=== PATIENT | female | born 1945 | race Caucasian/White ===

== ENCOUNTER → 2018-08-08 | Outpatient (CLI) | END | disposition home or self-care (01) ==

== ENCOUNTER → 2018-12-08 | Outpatient (CLI) | payer MEDICARE, BC ==
--- NOTE | 2018-12-08 18:31 | CONS ---
Consult Date/Type/Reason Admit Date/Time Initial Consult Date Date/Time of Note DATE: 12/08/18 TIME: 18:27 Subjective Fanny House here today with osteoarthritis of the left hip. The patient has been having problems for the last several years. She has failed conservative management. The patient's pain is an 8/10. The patient is here for preoperative visit. She has stopped smoking completely a few months ago. Objective Vitals Weight: 138 pounds Height: 5 foot 2 inches Temperature: 98.6 Heart Rate: 67 Blood Pressure: 152/70 Respiratory Rate: 12 Exam General: Awake, alert, in no acute distress, pleasant and cooperative Heart: regular rhythm Lungs: breathing comfortably, no tachypnea or dyspnea Musculoskeletal: Well developed thin female in no apparent distress. Gait demonstrates a mild Trendelenburg with antalgic components and a short leg component. Standing, the pelvis is oblique and supine there is a true leg length discrepancy, with the left leg 1 cm short. No tenderness over trochanteric bursa or IT band. No tenderness to palpation over the lower back. ----- Range of motion: Flexion: 90 Extension: 0 Internal rotation: 20 External rotation: 15 Abduction: 30 Adduction: Midline ----- Sitting there is no pelvic obliquity. Pain at the extremes of motion of the affected hip. Skin was intact throughout both lower extremities. Sensation intact to light touch in a sural, saphenous, deep peroneal, superficial peroneal, medial and lateral plantar nerve distribution. Neurovascular exam showed 5/5 strength in the abductors, quads, EHL/tibialis anterior/gastroc. 2-3 beats of clonus in bilateral feet. Deep tendon reflexes intact and symmetric. Normal and symmetrical pulses were palpated in both the dorsalis pedis and posterior tibial arteries. There is no sign of venous stasis. Results/Medications Imaging The patient received a full set of films and personally reviewed by myself today in clinic including an AP pelvis and an AP and lateral of the affected hip. The hip is reduced. There is complete loss of joint space. There is osteophyte formation. There is subchondral sclerosis. There are subchondral cysts. There is no significant deformity of the the proximal femur, femoral neck, or acetabulum. The pelvis is in continuity. Bone quality radiographically: Fair Assessment/Plan Hospital Course (Demo Recall) The patient has osteoarthritis of the left hip. Medical Clearance: yes. ----- A lengthy discussion was held, where the patient was told that if and when the symptoms are intolerable, elective total hip replacement should be considered. The operative procedure was explained using diagrams and/or three-dimensional models. The rehabilitation, the potential risks, benefits and alternatives were discussed at length. Specific risks discussed included but were not limited to excessive blood loss a nd the need for transfusion and therefore the risk of transmissible disease or transfusion reaction, deep infection and the potential need for repetitive debridements, implant removal, long-term antibiotic therapy, possibly requiring deep venous access, le g-length discrepancy, dislocation, possibly recurrent, with the need for closed versus open reduction, bracing, femoral or acetabular fracture and the need for further surgery for fixation, neurovascular injury with temporary or permanent numbness, tingling, weakness or paralysis, deep venous thrombosis, pulmonary embolism and , persistent pain, weakness, or limp, late aseptic loosening and the need for revision, polyethylene wear-induced osteolysis and related problems, and finally, a wide variety of unanticipated medical problems. The opportunity to ask questions and address any concerns was provided. The patient would like to proceed with scheduling. Face to Face Evaluation For Home Health Care: This is to certify that after date of planned surgery patient will be in need of intermittent care home care, physical therapy and/or occupational therapy as patient will be home bound. This patient is under my care and I have authorized the services on this plan of care and will periodically review the plan. Plan: Left KULDEEP VTE risk stratification: Average VTE prophylaxis: ASA 81 mg BID Pain control: Standard Telemetry: Not indicated at this time MRSA: Pending UNIQUE LUIS MD Dec 08, 2018 18:31
--- NOTE | 2018-12-09 10:20 | RADRPT ---
PROCEDURE: XR Left Hip and pelvis. CLINICAL INDICATION: Left hip pain. Pelvic pain. TECHNIQUE: Two views. Frontal pelvis and frontal left hip. COMPARISON: 08/08/2018. FINDINGS: There is no fracture or dislocation. The soft tissues are normal. There are severe degenerative changes of the left hip with joint space narrowing, osteophytes, subcho ndral sclerosis, and mild deformity. The right hip is grossly normal. There is no lytic or blastic lesion. There is no radiopaque foreign body. IMPRESSION: 1. Severe degenerative changes of the left hip. 2. Otherwise unremarkable study. RPTAT: QQ .Jd Atkinson MD, MD Date Time Electronically viewed and signed by .Jd Atkinson MD, MD on 12/09/2018 10:19 .R/
== END | disposition home or self-care (01) ==
LOC: HKI 12:51
PROVIDERS: ATTEND Orthopaedic Surgery Adult Reconstructive Orthopaedic Surgery
DX: Z01.818 Encounter for other preprocedural examination (principal); M16.12 Unilateral primary osteoarthritis, left hip
CPT/HCPCS: 73502; G0463

== ENCOUNTER 2018-12-16 07:49 | Inpatient (IN) | payer MEDICARE, BC ==
[2018-12-10 13:51] VITALS: Ht 157.5 cm; Wt 62.7 kg
[2018-12-16] VITALS (20 sets, daily range): BP systolic 97–154; BP diastolic 54–87; PULSE 59–92; RESP 12–19
[~2018-12-16] VITALS: Ht 157.5 cm; Wt 62.7 kg
[~2018-12-16 07:49] MED LIST: ACETAMINOPHEN 500 MG TAB PO ONE; CEFAZOLIN 2 GM/50 ML (PMX) 50 ML IVPB ONE; CELECOXIB 200 MG CAP PO ONE; DEXAMETHASONE 4 MG/ML 1 ML INJ IV ONE; LACTATED RINGER'S 1,000 ML IV* SCH; LANSOPRAZOLE 30 MG CAP PO ONE; ONDANSETRON 4 MG INJ IV ONE; TRANEXAMIC ACID 1GM/100ML(PMX) 100 ML AT CLOSING IVPB ONE; TRANEXAMIC ACID 1GM/100ML(PMX) 100 ML PRE-OP IVPB ONE
[2018-12-16] MEDS ORDERED: SIMV10TA PO (10:02)
[2018-12-16] MEDS ORDERED: ACETAMINOPHEN 1000MG/100ML IV 100 ML IVPB ONE (10:30)
--- NOTE | 2018-12-16 11:11 | PREAC ---
Date/Time of Note Date/Time of Note DATE: 12/16/18 TIME: 11:10 Anesthesia Eval and Record Evaluation Time Pre-Procedure Interview DATE: 12/16/18 TIME: 11:10 Age 73 Sex female NPO: 8 hrs Preoperative diagnosis left hip primary OA Planned procedure left total hip arthroplasty Past Medical History Past Medical History: Includes Cardio: Dyslipidemia Surgery & Anesthesia Issues No known issue Meds Anticoagulation: No Beta Fernanda within 24 hr: No Reason Beta Fernanda not given: Pt. not on B-Fernanda Reported Medications Simvastatin* (Zocor*) 10 Mg Tablet, 10 MG PO DAILY, #30 TAB 12/16/18 Current Medications Lactated Ringer's 1,000 ml @ 125 mls/hr Q8H IV* Last administered on 12/16/18at 10:14; Admin Dose 125 MLS/HR; Start 12/16/18 at 06:00; Stop 12/16/18 at 13:59 Ropivacaine/ Clonidine/ Epinephrine/ Ketorolac Tromethamine/ Sodium Chloride INTRA-OP INJ ; Start 12/16/18 at 14:00; Stop 12/16/18 at 23:00 Meds reviewed: Yes Allergies Coded Allergies: No Known Allergies (Verified Allergy, Unknown, 12/16/18) Allergies Reviewed: Yes Labs/Studies Labs Reviewed: Reviewed by anesthesiologist Blood Bank Test 12/16/18 10:16 Antibody Screen NEGATIVE Blood Type A POSITIVE test: N/A Studies: ECG (sr), CXR (nl) Pre-procedure Exam Last vitals Vital Signs Date Temp Pulse Resp B/P (MAP) Pulse Ox O2 O2 Flow FiO2 Time Delivery Rate 12/16/18 98.1 59 16 154/72 99 Room Air 10:32 (99) Airway: Adequate mouth opening Mallampati: Mallampati I Teeth: Normal Lung: Normal Heart: Normal ASA Physical Status ASA physical status: 2 Emergency: None Planned Anesthetic General/MAC: ETT Neuraxial: Spinal Planned Pain Management Sub-arachniod narcotics, Single shot nerve block Pre-operative Attestations Prior to commencing anesthesia and surgery, the patient was re-evaluated, there was verification of: *The patient's identity *The results of appropriate recent lab work and preoperative vital signs *The above evaluation not changing prior to induction *Anesthetic plan, risk benefits, alternative and complications discussed with patient/family; questions answered; patient/family understands, accepts and wishes to proceed. RACHANA PEPPER MD Dec 16, 2018 11:11
--- NOTE | 2018-12-16 11:38 | HPN ---
Date/Time of Note Date/Time of Note DATE: 12/16/18 TIME: 11:37 Interval H&P Admission Note Pt. seen H&P reviewed: No system changes Patient denies fever, chills, shortness of breath, chest pain, nausea/vomiting, constipation, diarrhea, numbness, and tingling. MUSCULOSKELETAL: Left extremity Skin intact Sensation intact to light touch in a sural, saphenous, deep peroneal, superficial peroneal, medial and lateral plantar nerve distribution. Motor is intact, patient able to dorsiflex and plantarflex ankle and extend and flex great toe. Dorsalis Pedis pulse +2, Brisk capillary refill. Compartments are soft. Calves non-tender to palpation bilaterally. UNIQUE LUIS MD Dec 16, 2018 11:38
[2018-12-16] MEDS ORDERED: ONDANSETRON 4 MG INJ ONE (12:23)
[2018-12-16] MEDS ORDERED: ROCURONIUM 50 MG INJ ONE (12:23)
[2018-12-16] MEDS ORDERED: METOCLOPRAMIDE 10 MG INJ ONE (12:23)
[2018-12-16] MEDS ORDERED: morphine SULFATE/PF (10 MG/10 ML) INJ ONE (12:23)
[2018-12-16] MEDS ORDERED: MIDAZOLAM 1 MG/ML 2 ML INJ ONE (12:23)
[2018-12-16] MEDS ORDERED: ROPIVACAINE 0.5 % 30 ML VIAL ONE (12:23)
[2018-12-16] MEDS ORDERED: PROPOFOL 20 ML ONE (12:23)
[2018-12-16] MEDS ORDERED: TRANEXAMIC ACID 1GM/100ML(PMX) 100 ML ONE ×2 (12:42→14:55)
[2018-12-16] MEDS ORDERED: CEFAZOLIN 1 GM INJ ONE (12:43)
[2018-12-16] MEDS ORDERED: HYDROmorphONE 1 MG/5 ML IV SYRINGE IV PRN ×3 (13:00)
[2018-12-16] MEDS ORDERED: FENTAnyl 50 MCG/ML VIAL IV PRN ×3 (13:00)
[2018-12-16] MEDS ORDERED: ONDANSETRON 4 MG INJ IV PRN (13:00)
[2018-12-16] MEDS ORDERED: MEPERIDINE 25 MG INJ IV PRN (13:00)
[2018-12-16] MEDS ORDERED: DIPHENHYDRAMINE 50 MG INJ IV PRN ×2 (13:00→17:00)
[2018-12-16] MEDS ORDERED: DEXAMETHASONE 4 MG/ML 5 ML INJ ONE (13:04)
[2018-12-16] MEDS ORDERED: EPHEDrine 50 MG INJ ONE ×2 (16:23)
[2018-12-16] MEDS ORDERED: SENNA/DOCUSATE NA (8.6MG/50MG) TAB PO PRN (17:00)
[2018-12-16] MEDS ORDERED: BETHANECHOL 25 MG TAB PO PRN (17:00)
[2018-12-16] MEDS ORDERED: BISACODYL 10 MG SUPP PR PRN (17:00)
[2018-12-16] MEDS ORDERED: DOCUSATE SODIUM 100 MG CAP PO ONE (17:00)
[2018-12-16] MEDS ORDERED: MAGNESIUM HYDROXIDE 30ML CUP PO PRN (17:00)
[2018-12-16] MEDS ORDERED: HYDROmorphONE 1 MG/ML SYG IV PRN (17:00)
[2018-12-16] MEDS ORDERED: NACL 0.9% 3 ML SYG IV SCH (17:00)
[2018-12-16] MEDS ORDERED: NA PHOSPHATE/BIPHOS 133 ML ENEMA PR PRN (17:00)
[2018-12-16] MEDS ORDERED: oxyCODONE 5 MG TAB PO PRN ×3 (17:00)
[2018-12-16] MEDS ORDERED: NALOXONE (0.4 MG/ML) INJ IV PRN (17:00)
[2018-12-16] MEDS ORDERED: CEFAZOLIN 1 GM/50 ML (PMX) 0 ML IVPB ONE (17:05)
--- NOTE | 2018-12-16 17:12 | OPR ---
Date/Time of Note Date/Time of Note DATE: 12/16/18 TIME: 17:02 Operative Report Procedure Date: Dec 16, 2018 Preoperative Diagnosis Left hip primary osteoarthritis Postoperative Diagnosis As above Operation/Procedure Performed Left total hip arthroplasty and open reduction internal fixation of periprosthetic fracture Use of intraoperative x-ray Surgeon see signature line Academic Affairs Director Trenton Culp Anesthesia Type: general, spinal Estimated Blood Loss: 250 - 300 ml's Transfusion none Specimen Femoral head Grafts/Implants Complications Iatrogenic calcar fracture Disposition: PACU Procedure Description PREOP DIAGNOSIS: Left hip osteoarthritis. POSTOP DIAGNOSIS: Same. SURGICAL PROCEDURE: Left total hip arthroplasty (CPT code 65420). Open reduction internal fixation of periprosthetic femur fracture INDICATIONS: The patient is a 73 year-old woman with an orthopaedic history significant for progressively worsening left hip pain. The patient failed conservative management and wished to pursue surgical options. On physical exam, they walk with a moderate antalgic gait. No previous open surgical scars. Guarded range of motion but no contractures. Neurovascularly intact. Radiographs reveal advanced osteoarthritis with DJD INFORMED CONSENT: The operative procedure was explained using diagrams and/or three-dimensional models. The rehabilitation, the potential risks, benefits and alternatives were discussed at length. Specific risks discussed included but were not limited to excessive blood loss and the need for transfusion and therefore the risk of transmissible disease or transfusion reaction, deep infection and the potential need for repetitive debridements, implant removal, long-term antibiotic therapy, possibly requiring deep venous access, leg-length discrepancy, dislocation, possibly recurrent, with the need for closed versus open reduction, bracing, femoral or acetabular fracture and the need for further surgery for fixation, neurovascular injury with temporary or permanent numbness, tingling, weakness or paralysis, deep venous thrombosis, pulmonary embolism and , persistent pain, weakness, or limp, late aseptic loosening and the need for revision, john yethylene wear-induced osteolysis and related problems, and finally, a wide variety of unanticipated medical problems. The opportunity to ask questions and address any concerns was provided. The patient wished to proceed. FINDINGS: Severely degenerative femoral head and acetabulum with full-thickness cartilage loss. Minimal synovitis. Good quality bone on the acetabular side. On implantation of the femoral component there was a calcar fracture. SURGERY IN DETAIL: The patient was taken into the Operating Room and placed supine on the operating table. Preoperatively, they were administered Ancef. They were administered general and spinal anesthesia by the Anesthesia Department. Dexamethasone 10mg IV was administered. The patient was placed on an [facility] Lateral Positioner in a right lateral decubitus position with the left hip superior. An axillary roll was placed, all pressure points were confirmed padded. The left hip region was prepped and draped in sterile fashion. A surgical pause was performed, correctly identifying the patient's name, the correct medical record number, the correct diagnosis, correct surgical procedure, and the correct extremity. 1g of tranexamic acid was dosed at the time of incision A posterolateral skin incision, approximately 15-20 cm in length was made, centered over the greater trochanter, skin and subcutaneous tissue sharply dissected. Deep fascial layer was identified and incised in line with the skin incision. Gluteus medius was retracted anteriorly. Piriformis tendon was identified, tagged with a stitch, and incised close to its insertion. The interval between the gluteus minimus and hip capsule was developed superiorly, and a superior retractor was placed. Short external rotators were subperiosteally incised from the posterior proximal femur to the level of the lesser trochanter and an inferior retractor was placed. A posterior capsulotomy was performed. Two tag stitches were placed in the capsule. The hip was dislocated. A femoral neck osteotomy was performed at the preoperatively templated level. A radial incision was made in the inferior capsule to the level of transverse acetabular ligament, which was identified, and an inferior retractor was placed inferior to the transverse acetabular ligament or inferior to the cotyloid notch. An anterior retractor was placed at the rim of the acetabulum. The acetabular labrum was then sharply excised. There was a large pulvinar in the base of the acetabulum, which was removed with electrocautery. The acetabulum was then sequentially reamed, beginning at 45 mm, up to a size 51 outer diameter reamer. A size 52 Gription-[place]rid cup was inserted. A single dome screw was placed with good purchase, and a neutral 36 mm polyethylene trial was inserted and attention was placed to preparing the femur. Soft tissues were removed from the junction of the greater trochanter and the femoral neck osteotomy. A box osteotome was used lateralize the starting point. A starting awl was utilized, followed by a lateralizing reamer, followed by axial reamers for the Blanca system up to a size 5. The femoral canal was then broached up to a size 5. A neutral femoral head was inserted and the hip was reduced. Range of motion and stability were quite good, including forward flexion to greater than 90 degrees, internal rotation greater than 80 degrees at 90 degrees flexion, internal rotation greater than 80 degrees with the hip adducted and at 45 degrees of flexion. External Rotation was also tested, and was stable with no impingement or instability at full extension and 30 degrees external rotation. Ranawat sign was 50 degrees. Intraoperative x-ray revealed the hip to have satisfactory position of all components. The hip was dislocated in controlled manner using a bone hook and the trial components removed. Local anesthetic was injected periarticular. A formal neutral 36 mm polyethylene was inserted into the cup, confirmed seated and locked. On the femoral side, a Blanca size 5 standard stem was inserted. Careful and controlled impaction of the femoral implant was done. Once the implant reached the line of the femoral neck resection it was noted the stem subsided a few millimeters. On careful inspection it was noted that there was a significant calcar fracture with distraction along the posterior aspect of the femur. This extended just distal level of the lesser trochanter. The femoral prosthesis was removed. At this time the calcar fracture was further evaluated. A cable passer was passed all around the calcar with care to not entrap the il iopsoas tendon and a [employer] cable was placed and tightened down. A second cable was placed distal to the lesser trochanter passing under the vastus lateralis to compress the distal extent of the calcar fracture. Of note the gluteus rene insertion on the femur had to be partially taken down for this. The cable was tensioned and tightened. At this time the femoral implant which was a Blanca size 5 standard offset was reimplanted with care. There was good fit at the level of the femoral neck resection. A 36 mm +1.5 mm head was inserted onto the taper. The hip was reduced. One final time range of motion, stability, and soft tissue tension were satisfactory. The wound was thoroughly irrigated. 1g of tranexamic acid was dosed. The previously tagged arthrotomy, as well as the piriformis tendon was reattached to the gluteus medius at the level the greater trochanter. The deep fascial layer was closed with 1 Vicryl in a [id number], interrupted fashion, deep subcutaneous tissues irrigated and closed with 0 Vicryl interrupted fashion, subcutaneous tissues irrigated, closed with 2-0 Vicryl in an inverted, interrupted fashion. The skin was closed with wesley. A sterile dressing was applied, abduction pillow was placed between the legs, and the patient was transferred to a supine position. Postoperative clinical leg lengths, rotation of limb were neutral and symmetric. All Counts were correct x2 DISPOSITION: Patient transferred to PACU in stable condition. The patient will be touchdown weightbearing on the operative extremity secondary to the extensive calcar fracture that required 2 cables for fixation. PT will begin POD#0 if available. Posterior hip precautions for 3 months with an abduction pillow. Postoperative AP pelvis will be ordered in PACU. Bilateral knee high SCDs will be worn while admitted. ASA 81mg BID will be given for DVT prophylaxis for 6 weeks. Pain will be controlled with medication. The patient will follow up in clinic in approximately 2 weeks. Implant: DePuy: Gription-pinnacle acetabulum size 52 mm Polyethylene Size 36 mm, neutral Femoral stem: Blanca press-fit size 5, stem offset Femoral head: 36 +1.5 mm ceramic. Werner [employer] Nephew: 2 cerclage cables UNIQUE LUIS MD Dec 16, 2018 17:12
[2018-12-16] MEDS: CEFAZOLIN 2 GM/50 ML (PMX) 50 ML IVPB SCH (17:27)
[2018-12-16] MEDS: LACTATED RINGER'S 1,000 ML IV SCH (17:27)
--- NOTE | 2018-12-16 18:06 | CONS ---
Assessment/Plan Assessment/Plan Problems: (1) Pure hypercholesterolemia Status: Chronic Comment: Reports muscle pain w/ statin. Reports although simvastatin is on her med rec, has been switched to zetia. Will cont. this daily. (2) Primary osteoarthritis of left hip Status: Resolved Comment: Per primary team. (3) Aftercare following left hip joint replacement surgery Status: Acute Comment: Pt. doing well POD#0. PT and pain control per primary team. Will monitor for any medical issues and manage should they arise. Will follow w/ you daily. Consultation Date/Type/Reason Admit Date/Time Dec 16, 2018 at 07:49 Date of Consultation: Dec 16, 2018 Type of Consult Medicine Reason for Consultation Medical Management Requesting Provider: UNIQUE LUIS MD Date/Time of Note DATE: 12/16/18 TIME: 17:59 Hx of Present Illness 73 y/o C F w/ h/o hyperlipidemia presented 4 m. ago to [facility] w/ pain in L anterior thigh for the previous year. Pain radiating to knee and ankle. Pt. unable to walk more than 15 minutes. Pt. unable to walk her dogs. Referred for conservative management. Pt. failed this so returned last week and was schedu led today for L KULDEEP. Now POD#0 and doing well. Feels tired but o/w no complaints. Constitutional: no complaints Eyes: no complaints ENT: no complaints Respiratory: no complaints Cardiovascular: no complaints Gastrointestinal: no complaints Genitourinary: no complaints Musculoskeletal: no complaints Neurologic: no complaints Past Medical History Medical History: high cholesterol Home Meds Reported Medications Simvastatin* (Zocor*) 10 Mg Tablet, 10 MG PO DAILY, #30 TAB 12/16/18 Medications Current Medications Ropivacaine/ Clonidine/ Epinephrine/ Ketorolac Tromethamine/ Sodium Chloride INTRA-OP INJ ; Start 12/16/18 at 14:00; Stop 12/16/18 at 23:00 Hydromorphone HCl (Dilaudid) 0.2 mg PACU PRN IV MILD PAIN 1-3; Start 12/16/18 at 13:00; Stop 12/16/18 at 18:00 Hydromorphone HCl (Dilaudid) 0.4 mg PACU PRN IV MOD PAIN 4-6; Start 12/16/18 at 13:00; Stop 12/16/18 at 18:00 Hydromorphone HCl (Dilaudid) 0.6 mg PACU PRN IV SEVERE PAIN 7-10; Start 12/16/18 at 13:00; Stop 12/16/18 at 18:00 Fentanyl (Sublimaze) 25 mcg PACU ORDER PRN IV MILD PAIN 1-3; Start 12/16/18 at 13:00; Stop 12/16/18 at 18:00 Fentanyl (Sublimaze) 50 mcg PACU ORDER PRN IV MOD PAIN 4-6; Start 12/16/18 at 13:00; Stop 12/16/18 at 18:00 Fentanyl (Sublimaze) 75 mcg PACU ORDER PRN IV SEVERE PAIN 7-10; Start 12/16/18 at 13:00; Stop 12/16/18 at 18:00 Ondansetron HCl (Zofran Inj) 4 mg PACU ORDER PRN IV NAUSEA/VOMITING; Start 12/16/18 at 13:00; Stop 12/16/18 at 18:00 Meperidine HCl (Demerol) 25 mg PACU ORDER PRN IV .RIGORS; Start 12/16/18 at 1 3:00; Stop 12/16/18 at 18:00 Diphenhydramine HCl (Benadryl) 25 mg PACU ORDER PRN IV .PRURITUS; Start 12/16/18 at 13:00; Stop 12/16/18 at 18:00 Lactated Ringer's 1,000 ml @ 80 mls/hr [id number] IV Last administered on 12/16/18at 17:27; Admin Dose 80 MLS/HR; Start 12/16/18 at 16:48 Oxycodone HCl (Roxicodone) 15 mg Q4H PRN PO .PAIN; Start 12/16/18 at 17:00 Oxycodone HCl (Roxicodone) 10 mg Q4H PRN PO .PAIN; Start 12/16/18 at 17:00 Oxycodone HCl (Roxicodone) 5 mg Q4H PRN PO .PAIN; Start 12/16/18 at 17:00 Hydromorphone HCl (Dilaudid) 1 mg Q3H PRN IV .BREAKTHROUGH PAIN; Start 12/16/18 at 17:00 Acetaminophen (Tylenol Tab) 1,000 mg Q8 PO ; Start 12/16/18 at 22:00 Ondansetron HCl (Zofran Inj) 4 mg Q4H PRN IV NAUSEA/VOMITING; Start 12/17/18 at 17:00 Cefazolin Sodium/ Dextrose 50 ml @ 100 mls/hr Q8H IVPB Last administered on 12/16/18at 17:27; Admin Dose 100 MLS/HR; Start 12/16/18 at 17:00; Stop 12/17/18 at 09:29 Gabapentin (Neurontin) 300 mg QHS PO ; Start 12/16/18 at 21:00 Dexamethasone (Decadron) 10 mg ONCE ONCE IV ; Start 12/17/18 at 07:00; Stop 12/17/18 at 07:01 Pantoprazole (Protonix Tab) 40 mg DAILY@06 PO ; Start 12/17/18 at 06:00 Docusate Sodium (Colace) 200 mg BID PO ; Start 12/17/18 at 09:00; Stop 12/19/18 at 21:01 Simethicone (Mylicon) 80 mg TID PRN PO .GAS; Start 12/16/18 at 17:00 Senna/Docusate Sodium (Senokot-S) 2 tab BID PRN PO .CONSTIPATION; Start 12/16/18 at 17:00 Magnesium Hydroxide (Milk Of Mag) 30 ml HS PRN PO .CONSTIPATION; Start 12/16/18 at 17:00 Bisacodyl (Dulcolax Supp) 10 mg DAILY PRN SC .CONSTIPATION; Start 12/16/18 at 17:00 Sodium Biphosphate/ Sodium Phosphate (Fleet Enema) 133 ml DAILY PRN SC .CONSTIPATION; Start 12/16/18 at 17:00 Diphenhydramine HCl (Benadryl) 25 mg Q4H PRN IV .ITCHING; Start 12/16/18 at 17:00 Naloxone HCl (Narcan) 0.2 mg Q2M PRN IV .RESP RATE; Start 12/16/18 at 17:00 IV Flush (NS 3 ml) 3 ml per protocol IV ; Start 12/16/18 at 17:00 Bethanechol Chloride (Urecholine) 25 mg URINARY CATH D/C PRN PO UNABLE TO VOID; Start 12/16/18 at 17:00 Aspirin (Halfprin) 81 mg BID PO ; Start 12/17/18 at 09:00 Atorvastatin Calcium (Lipitor) 10 mg HS PO ; Start 12/16/18 at 21:00 Allergies: Coded Allergies: No Known Allergies (Verified Allergy, Unknown, 12/16/18) Past Surgical History Past Surgical Hx: other (cataracts surgery, varicose vein sclerotic therapy) Family History Significant Family History: no pertinent family hx Social History b. 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 [employer] Alcohol Use: heavy (2 glasses wine/d) Smoking Status: Current some day smoker Drug Use: none Exam/Review of Systems Exam Vitals VS - Last 72 Hours, by Label Date Temp Pulse Resp B/P (MAP) Pulse Ox O2 O2 Flow FiO2 Time Delivery Rate 12/16/18 86 14 110/56 95 Nasal 17:28 (74) Cannula 12/16/18 86 12 106/87 96 Nasal 17:23 (93) Cannula 12/16/18 86 14 106/59 96 Nasal 17:13 (75) Cannula 12/16/18 86 14 108/56 96 Nasal 17:08 (73) Cannula 12/16/18 88 15 110/57 96 Nasal 17:03 (74) Cannula 12/16/18 88 14 100/56 95 Nasal 16:58 (71) Cannula 12/16/18 92 16 105/55 91 Nasal 16:53 (72) Cannula 12/16/18 99.0 16:49 12/16/18 92 17 97/57 (70) 93 Nasal 16:48 Cannula 12/16/18 Nasal 2.0 16:45 Cannula 12/16/18 98.5 19 98/57 (71) 100 Mask 16:43 12/16/18 98.1 59 16 154/72 99 Room Air 10:32 (99) Vital Signs Date Temp Pulse Resp B/P (MAP) Pulse Ox O2 O2 Flow FiO2 Time Delivery Rate 12/16/18 86 14 110/56 95 Nasal 17:28 (74) Cannula 12/16/18 99.0 16:49 12/16/18 2.0 16:45 Constitutional: alert, oriented, well developed Psych: no complaints, nl mood/affect Eyes: nl conjunctiva, EOMI, nl lids, nl sclera, PERRL ENMT: nl external ears & nose, nl lips & teeth, mucosa pink and moist Neck: supple, non-tender; No bruits, No masses, No thyromegaly Respiratory: clear to auscultation, normal air movement Cardiovascular: regular rate and rhythm, nl pulses; No edema, No murmurs/extra sounds, No rub Gastrointestinal: soft, nl liver, spleen, non-tender, bowel sounds; No mass, No rebound or guarding Musculoskeletal: nl extremities to inspection Extremities: normal pulses; No cyanosis, No clubbing, No edema 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, nl mental status, nl speech, nl strength Medications Medication Current Medications Ropivacaine/ Clonidine/ Epinephrine/ Ketorolac Tromethamine/ Sodium Chloride INTRA-OP INJ ; Start 12/16/18 at 14:00; Stop 12/16/18 at 23:00 Hydromorphone HCl (Dilaudid) 0.2 mg PACU PRN IV MILD PAIN 1-3; Start 12/16/18 at 13:00; Stop 12/16/18 at 18:00 Hydromorphone HCl (Dilaudid) 0.4 mg PACU PRN IV MOD PAIN 4-6; Start 12/16/18 at 13:00; Stop 12/16/18 at 18:00 Hydromorphone HCl (Dilaudid) 0.6 mg PACU PRN IV SEVERE PAIN 7-10; Start 12/16/18 at 13:00; Stop 12/16/18 at 18:00 Fentanyl (Sublimaze) 25 mcg PACU ORDER PRN IV MILD PAIN 1-3; Start 12/16/18 at 13:00; Stop 12/16/18 at 18:00 Fentanyl (Sublimaze) 50 mcg PACU ORDER PRN IV MOD PAIN 4-6; Start 12/16/18 at 13:00; Stop 12/16/18 at 18:00 Fentanyl (Sublimaze) 75 mcg PACU ORDER PRN IV SEVERE PAIN 7-10; Start 12/16/18 at 13:00; Stop 12/16/18 at 18:00 Ondansetron HCl (Zofran Inj) 4 mg PACU ORDER PRN IV NAUSEA/VOMITING; Start 12/16/18 at 13:00; Stop 12/16/18 at 18:00 Meperidine HCl (Demerol) 25 mg PACU ORDER PRN IV .RIGORS; Start 12/16/18 at 13:00; Stop 12/16/18 at 18:00 Diphenhydramine HCl (Benadryl) 25 mg PACU ORDER PRN IV .PRURITUS; Start 12/16/18 at 13:00; Stop 12/16/18 at 18:00 Lactated Ringer's 1,000 ml @ 80 mls/hr [id number] IV Last administered on 12/16/18at 17:27; Admin Dose 80 MLS/HR; Start 12/16/18 at 16:48 Oxycodone HCl (Roxicodone) 15 mg Q4H PRN PO .PAIN; Start 12/16/18 at 17:00 Oxycodone HCl (Roxicodone) 10 mg Q4H PRN PO .PAIN; Start 12/16/18 at 17:00 Oxycodone HCl (Roxicodone) 5 mg Q4H PRN PO .PAIN; Start 12/16/18 at 17:00 Hydromorphone HCl (Dilaudid) 1 mg Q3H PRN IV .BREAKTHROUGH PAIN; Start 12/16/18 at 17:00 Acetaminophen (Tylenol Tab) 1,000 mg Q8 PO ; Start 12/16/18 at 22:00 Ondansetron HCl (Zofran Inj) 4 mg Q4H PRN IV NAUSEA/VOMITING; Start 12/17/18 at 17:00 Cefazolin Sodium/ Dextrose 50 ml @ 100 mls/hr Q8H IVPB Last administered on 12/16/18at 17:27; Admin Dose 100 MLS/HR; Start 12/16/18 at 17:00; Stop 12/17/18 at 09:29 Gabapentin (Neurontin) 300 mg QHS PO ; Start 12/16/18 at 21:00 Dexamethasone (Decadron) 10 mg ONCE ONCE IV ; Start 12/17/18 at 07:00; Stop 12/17/18 at 07:01 Pantoprazole (Protonix Tab) 40 mg DAILY@06 PO ; Start 12/17/18 at 06:00 Docusate Sodium (Colace) 200 mg BID PO ; Start 12/17/18 at 09:00; Stop 12/19/18 at 21:01 Simethicone (Mylicon) 80 mg TID PRN PO .GAS; Start 12/16/18 at 17:00 Senna/Docusate Sodium (Senokot-S) 2 tab BID PRN PO .CONSTIPATION; Start 12/16/18 at 17:00 Magnesium Hydroxide (Milk Of Mag) 30 ml HS PRN PO .CONSTIPATION; Start 12/16/18 at 17:00 Bisacodyl (Dulcolax Supp) 10 mg DAILY PRN SC .CONSTIPATION; Start 12/16/18 at 17:00 Sodium Biphosphate/ Sodium Phosphate (Fleet Enema) 133 ml DAILY PRN SC .CONSTIPATION; Start 12/16/18 at 17:00 Diphenhydramine HCl (Benadryl) 25 mg Q4H PRN IV .ITCHING; Start 12/16/18 at 17: 00 Naloxone HCl (Narcan) 0.2 mg Q2M PRN IV .RESP RATE; Start 12/16/18 at 17:00 IV Flush (NS 3 ml) 3 ml per protocol IV ; Start 12/16/18 at 17:00 Bethanechol Chloride (Urecholine) 25 mg URINARY CATH D/C PRN PO UNABLE TO VOID; Start 12/16/18 at 17:00 Aspirin (Halfprin) 81 mg BID PO ; Start 12/17/18 at 09:00 Atorvastatin Calcium (Lipitor) 10 mg HS PO ; Start 12/16/18 at 21:00 CASH GONZÁLES MD Dec 16, 2018 18:06
[2018-12-16] MEDS ORDERED: GABAPENTIN 300 MG CAP PO SCH (21:00)
[2018-12-16] MEDS ORDERED: ATORVASTATIN 10 MG TAB PO SCH (21:00)
[2018-12-16] MEDS: ACETAMINOPHEN 500 MG TAB PO SCH (21:28)
[2018-12-17] MEDS: CEFAZOLIN 2 GM/50 ML (PMX) 50 ML IVPB SCH ×2 (01:27→10:26)
[2018-12-17] MEDS ORDERED: ONDANSETRON 4 MG INJ IV PRN (01:41)
[2018-12-17 01:48] VITALS: BP 105/60; PULSE 60; RESP 18
[2018-12-17] MEDS: LACTATED RINGER'S 1,000 ML IV SCH ×2 (05:22→16:47)
[2018-12-17] MEDS: ACETAMINOPHEN 500 MG TAB PO SCH ×2 (05:24→13:13)
[2018-12-17] MEDS ORDERED: PANTOPRAZOLE (EC) 40 MG TAB PO SCH (06:00)
[2018-12-17] MEDS ORDERED: DEXAMETHASONE 10 MG/ML 1 ML INJ IV ONE (07:00)
[2018-12-17 07:19] VITALS: BP 95/54; PULSE 73; RESP 18
--- NOTE | 2018-12-17 08:04 | PN ---
Date/Time of Note Date/Time of Note DATE: 12/17/18 TIME: 08:02 Assessment/Plan Lines/Catheters IV Catheter Type (from Nrsg): Peripheral IV Cruz in Place (from Nrsg): Yes Assessment/Plan Chief Complaint/Hosp Course POD#1 s/p primary left KULDEEP. Patient had intraoperative calcar fracture. Secondary to this fracture postoperative weightbearing status will be changed to touch down weightbearing on the left lower extremity. -Post op H&H stable -PT/OT. Posterior Hip Precautions -Joints pain control protocol -DVT prophylaxis: SCD's, ASA 81 mg twice daily -Weight bearing status: Touchdown weightbearing left lower extremity. -Post-op XR ordered -Abx: 24h ancef -Diet: ADAT -Cruz: DC'd today -Discharge planning consult Planned Discharge Date: [] Discharge to [] Subjective 24 Hr Interval Summary Patient doing well No acute events overnight Pain is well controlled Exam/Review of Systems Vital Signs Vitals Vital Signs Date Temp Pulse Resp B/P (MAP) Pulse Ox O2 O2 Flow FiO2 Time Delivery Rate 12/17/18 73 18 95/54 (68) 96 Room Air 07:19 12/17/18 98.0 06:02 12/16/18 2.0 20:46 Intake and Output 12/16/18 12/16/18 12/17/18 1515:00 23:00 07:00 IntakeIntake Total 100 ml 100 ml 1050 ml OutputOutput Total 1250 ml 350 ml BalanceBalance 100 ml -1150 ml 700 ml Exam Free Text/Dictation Left lower extremity: Dressing: clean, dry, and intact, no erythema Sensation intact to light touch in a sural, saphenous, deep peroneal, superficial peroneal, medial and lateral plantar nerve distribution. Motor is intact, patient able to dorsiflex and plantarflex ankle and extend and flex great toe. Dorsalis Pedis pulse +2, Brisk capillary refill. Compartments are soft. Calves non-tender to palpation bilaterally. Results Result Diagram: 12/17/18 0455 12/17/18 0455 UNIQUE LUIS MD Dec 17, 2018 08:04
[2018-12-17] MEDS ORDERED: ASPIRIN (EC) 81 MG TAB PO SCH (09:00)
[2018-12-17] MEDS ORDERED: EZETIMIBE 10 MG TAB PO SCH (09:00)
[2018-12-17] MEDS ORDERED: DOCUSATE SODIUM 100 MG CAP PO SCH (09:00)
--- NOTE | 2018-12-17 09:10 | PAC ---
Date/Time of Note Date/Time of Note DATE: 12/17/18 TIME: 09:09 Post-Anesthesia Notes Post-Anesthesia Note Last documented vital signs Vital Signs Date Temp Pulse Resp B/P (MAP) Pulse Ox O2 O2 Flow FiO2 Time Delivery Rate 12/17/18 98.0 73 18 95/54 (68) 96 Room Air 07:19 12/17/18 98.0 06:02 12/16/18 2.0 20:46 Activity: WNL Respiratory function: WNL Cardiovascular function: WNL Mental status: Baseline Pain reasonably controlled: Yes Hydration appropriate: Yes Nausea/Vomiting absent: No RACHANA PEPPER MD Dec 17, 2018 09:10
--- NOTE | 2018-12-17 09:11 | OPPN ---
Date/Time of Note Date/Time of Note DATE: 12/17/18 TIME: 09:10 Anesthesia Follow up Anesthesia Follow up Last documented vital signs Vital Signs Date Temp Pulse Resp B/P (MAP) Pulse Ox O2 O2 Flow FiO2 Time Delivery Rate 12/17/18 73 18 95/54 (68) 96 Room Air 07:19 12/17/18 98.0 06:02 12/16/18 2.0 20:46 Respiratory function: WNL Cardiovascular function: WNL Comments A 73 yeasr female s/p hip replacement under [place] spinal duramorph for posst op pain POD#1 is doing fine . pain is controlled, no itching, headache, N/V, neural deficit. RACHANA PEPPER MD Dec 17, 2018 09:11
[2018-12-17 13:37] VITALS: BP 99/61; PULSE 71; RESP 18
[2018-12-17] MEDS ORDERED: GABA300C16 PO (16:58)
[2018-12-17] MEDS ORDERED: ASPI-1044 PO (16:58)
[2018-12-17] MEDS ORDERED: OXYC-481 PO (16:58)
--- NOTE | 2018-12-17 17:00 | DS ---
Date/Time of Note Date/Time of Note DATE: 12/17/18 TIME: 16:58 Discharge Summary Admission/Discharge Info Admit Date/Time Dec 16, 2018 at 07:49 Discharge Date/Time Patient Condition: Good Hospital Course POD#1 s/p primary left KULDEEP. Patient had intraoperative calcar fracture. Secondary to this fracture postoperative weightbearing status will be changed to touch down weightbearing on the left lower extremity. Otherwise her pain is well controlled with pain medication. She did well with physical therapy today. She was accepted by the acute rehab unit in the hospital for further rehabilitation. She is medically stable for discharge and transfer to acute rehab unit. -Post op H&H stable -PT/OT. Posterior Hip Precautions -Joints pain control protocol -DVT prophylaxis: SCD's, ASA 81 mg twice daily -Weight bearing status: Touchdown weightbearing left lower extremity. -Diet: ADAT Patient should follow-up with me in 2 weeks in the office. Home Meds Reported Medications Simvastatin* (Zocor*) 10 Mg Tablet, 10 MG PO DAILY, #30 TAB 12/16/18 Primary Care Provider Not On Staff Doctor Pending Labs Laboratory Tests Test 12/17/18 04:30 12/17/18 04:55 Urine Color YELLOW (YELLOW) Urine Clarity CLOUDY (CLEAR) Urine pH 5.0 (5.0-9.0) Urine Specific [place] 1.028 (1.003-1.030) Urine Ketones TRACE mg/dL (NEGATIVE) Urine Nitrite NEGATIVE mg/dL (NEGATIVE) Urine Bilirubin NEGATIVE mg/dL (NEGATIVE) Urine Urobilinogen NEGATIVE mg/dL (NEGATIVE) Urine Leukocyte Esterase NEGATIVE [place]/ul Urine Microscopic RBC 13 /HPF (0-5) Urine Microscopic WBC 1 /HPF (0-5) Urine Mucus MODERATE /HPF (NONE SEEN) Urine Hemoglobin NEGATIVE mg/dL (NEGATIVE) Urine Glucose 3+ mg/dL (NEGATIVE) Urine Total Protein NEGATIVE mg/dl (NEGATIVE) White Blood Count 12.8 10^3/ul (4.8-10.8) Red Blood Count 3.43 10^6/ul (4.20-5.40) Hemoglobin 10.3 g/dl (12.0-16.0) Hematocrit 31.7 % (37.0-47.0) Mean Corpuscular Volume 92.4 fl (82.0-101.0) Mean Corpuscular 30.0 pg (29.0-33.0) Hemoglobin Mean Corpuscular 32.5 g/dl (32.0-37.0) Hemoglobin Concent Red Cell Distribution 13.1 % (11.5-14.5) Width Platelet Count 183 10^3/UL (140-415) Mean Platelet Volume 11.2 fl (7.4-10.4) Immature Granulocytes % 0.600 % (0.001-0.429) Neutrophils % 82.7 % (39.0-77.0) Lymphocytes % 6.1 % (15.0-51.0) Monocytes % 10.5 % (0.0-11.0) Eosinophils % 0.0 % (0.0-7.0) Basophils % 0.1 % (0.0-2.0) Nucleated Red Blood Cells 0.0 /100WBC (0.0-0.0) % Immature Granulocytes # 0.080 10^3/ul (0.0-0.031) Neutrophils # 10.6 10^3/ul (1.6-7.5) Lymphocytes # 0.8 10^3/ul (0.8-2.9) Monocytes # 1.3 10^3/ul (0.3-0.9) Eosinophils # 0.0 10^3/ul (0.0-0.5) Basophils # 0.0 10^3/ul (0.0-0.1) Nucleated Red Blood Cells 0.0 10^3/ul (0.0-0.0) # Prothrombin Time 12.9 Sec (11.9-14.9) Prothrombin Time Ratio 1.0 INR International 0.96 Normalized Ratio Sodium Level 139 mmol/L (135-144) Potassium Level 4.7 mmol/L (3.5-5.1) Chloride Level 106 mmol/L (97-110) Carbon Dioxide Level 26 mmol/L (21-31) Anion Gap 7 (5-13) Blood Urea Nitrogen 13 mg/dl (7-20) Creatinine 0.41 mg/dl (0.44-1.00) Est Glomerular Filtrat mL/min (>60) Rate mL/min Glucose Level 163 mg/dl (70-220) Calcium Level 8.6 mg/dl (8.4-10.2) UNIQUE LUIS MD Dec 17, 2018 17:00
--- NOTE | 2018-12-17 18:24 | CONS ---
Assessment/Plan Assessment/Plan Problems: (1) Glycosuria Status: Acute Comment: 3+ glucose in urine this am. Likely due to intraoperative dexamethasone causing temporary hyperglycemia. However, will check HbA1c and perform accu-cheks qac/qhs to r/o DM (2) Hyperglycemia Status: Acute Comment: FBG > 160 mg/dL this am. Likely due to intraoperative dexamethasone causing temporary hyperglycemia. However, will check HbA1c and perform accu-ch eks qac/qhs to r/o DM (3) Postoperative anemia due to acute blood loss Status: Acute Comment: Add FeSO4 325 mg bid (4) Pure hypercholesterolemia Status: Chronic Comment: Cont. zetia daily (5) Primary osteoarthritis of left hip Status: Resolved Comment: Per primary team (6) Aftercare following left hip joint replacement surgery Status: Acute Comment: Doing well POD#1. To ARU for intensive PT over next 1-2 weeks. Will follow over there. Consultation Date/Type/Reason Admit Date/Time Dec 16, 2018 at 07:49 Initial Consult Date 12/16/18 Type of Consult Medicine Reason for Consultation Medical Management Requesting Provider: UNIQUE LUIS MD Date/Time of Note DATE: 12/17/18 TIME: 18:20 24 HR Interval Summary Constitutional: no complaints, improved Detailed Summary Respiratory: no complaints Cardiovascular: no complaints Gastrointestinal: no complaints Genitourinary: no complaints Musculoskeletal: bone/joint pain (L hip; pain meds help some but still painful. Feels she has no control over LLE) Neurologic: no complaints Exam/Review of Systems Exam Vitals VS - Last 72 Hours, by Label Date Temp Pulse Resp B/P (MAP) Pulse Ox O2 O2 Flow FiO2 Time Delivery Rate 12/17/18 98.3 71 18 99/61 (74) 99 Room Air 13:37 12/17/18 Nasal 2.0 08:00 Cannula 12/17/18 73 18 95/54 (68) 96 Room Air 07:19 12/17/18 98.0 06:02 12/17/18 98.0 05:24 12/17/18 97.8 60 18 105/60 97 Room Air 01:48 (75) 12/16/18 98.0 21:28 12/16/18 Nasal 2.0 20:46 Cannula 12/16/18 98.0 80 18 105/60 99 Nasal 2.0 19:53 (75) Cannula 12/16/18 98.0 18:59 12/16/18 98.0 85 18 111/65 92 18:35 (80) 12/16/18 84 12 109/61 95 Nasal 2.0 18:13 (77) Cannula 12/16/18 82 13 96 18:03 12/16/18 107/59 96 Nasal 2.0 17:58 (75) Cannula 12/16/18 92 16 113/54 96 Nasal 2.0 17:53 (73) Cannula 12/16/18 86 14 113/58 95 Nasal 2.0 17:48 (76) Cannula 12/16/18 86 13 109/57 95 Nasal 2.0 17:43 (74) Cannula 12/16/18 88 14 101/57 96 Nasal 2.0 17:38 (72) Cannula 12/16/18 84 13 109/56 95 Nasal 2.0 17:33 (73) Cannula 12/16/18 86 14 110/56 95 Nasal 17:28 (74) Cannula 12/16/18 86 12 106/87 96 Nasal 17:23 (93) Cannula 12/16/18 86 14 106/59 96 Nasal 17:13 (75) Cannula 12/16/18 86 14 108/56 96 Nasal 17:08 (73) Cannula 12/16/18 88 15 110/57 96 Nasal 17:03 (74) Cannula 12/16/18 88 14 100/56 95 Nasal 16:58 (71) Cannula 12/16/18 92 16 105/55 91 Nasal 16:53 (72) Cannula 12/16/18 99.0 16:49 12/16/18 92 17 97/57 (70) 93 Nasal 16:48 Cannula 12/16/18 Nasal 2.0 16:45 Cannula 12/16/18 98.5 19 98/57 (71) 100 Mask 16:43 12/16/18 98.1 59 16 154/72 99 Room Air 10:32 (99) Vital Signs Date Temp Pulse Resp B/P (MAP) Pulse Ox O2 O2 Flow FiO2 Time Delivery Rate 12/17/18 98.3 71 18 99/61 (74) 99 Room Air 13:37 12/17/18 2.0 08:00 Intake and Output 12/16/18 12/16/18 12/17/18 1515:00 23:00 07:00 IntakeIntake Total 100 ml 100 ml 1050 ml OutputOutput Total 1250 ml 350 ml BalanceBalance 100 ml -1150 ml 700 ml Constitutional: alert, oriented, well developed Psych: no complaints, nl mood/affect Respiratory: clear to auscultation, normal air movement Cardiovascular: regular rate and rhythm, nl pulses; No edema, No murmurs/extra sounds, No rub Gastrointestinal: soft, nl liver, spleen, non-tender, bowel sounds; No mass, No rebound or guarding Musculoskeletal: nl extremities to inspection Extremities: normal pulses; No cyanosis, No clubbing, No edema 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, nl mental status, nl speech, nl strength Results Result Diagram: 12/17/185 12/17/18 045 Results 24hrs Laboratory Tests Test 12/17/18 04:30 12/17/18 04:55 Urine Color YELLOW Urine Clarity CLOUDY A Urine pH 5.0 Urine Specific [place] 1.028 Urine Ketones TRACE A Urine Nitrite NEGATIVE Urine Bilirubin NEGATIVE Urine Urobilinogen NEGATIVE Urine Leukocyte Esterase NEGATIVE Urine Microscopic RBC 13 H Urine Microscopic WBC 1 Urine Mucus MODERATE Urine Hemoglobin NEGATIVE Urine Glucose 3+ H Urine Total Protein NEGATIVE White Blood Count 12.8 H Red Blood Count 3.43 L Hemoglobin 10.3 L Hematocrit 31.7 L Mean Corpuscular Volume 92.4 Mean Corpuscular Hemoglobin 30.0 Mean Corpuscular Hemoglobin Concent 32.5 Red Cell Distribution Width 13.1 Platelet Count 183 Mean Platelet Volume 11.2 H Immature Granulocytes % 0.600 H Neutrophils % 82.7 H Lymphocytes % 6.1 L Monocytes % 10.5 Eosinophils % 0.0 Basophils % 0.1 Nucleated Red Blood Cells % 0.0 Immature Granulocytes # 0.080 H Neutrophils # 10.6 H Lymphocytes # 0.8 Monocytes # 1.3 H Eosinophils # 0.0 Basophils # 0.0 Nucleated Red Blood Cells # 0.0 Prothrombin Time 12.9 Prothrombin Time Ratio 1.0 INR International Normalized Ratio 0.96 Sodium Level 139 Potassium Level 4.7 Chloride Level 106 Carbon Dioxide Level 26 Anion Gap 7 Blood Urea Nitrogen 13 Creatinine 0.41 L Est Glomerular Filtrat Rate mL/min Glucose Level 163 Calcium Level 8.6 Medications Medication Current Medications Lactated Ringer's 1,000 ml @ 80 mls/hr [id number] IV Last administered on 12/17/18at 05:22; Admin Dose 80 MLS/HR; Start 12/16/18 at 16:48 Oxycodone HCl (Roxicodone) 15 mg Q4H PRN PO .PAIN; Start 12/16/18 at 17:00 Oxycodone HCl (Roxicodone) 10 mg Q4H PRN PO .PAIN; Start 12/16/18 at 17:00 Oxycodone HCl (Roxicodone) 5 mg Q4H PRN PO .PAIN Last administered on 12/17/18at 09:17; Admin Dose 5 MG; Start 12/16/18 at 17:00 Hydromorphone HCl (Dilaudid) 1 mg Q3H PRN IV .BREAKTHROUGH PAIN; Start 12/16/18 at 17:00 Acetaminophen (Tylenol Tab) 1,000 mg Q8 PO Last administered on 12/17/18at 13:13; Admin Dose 1,000 MG; Start 12/16/18 at 22:00 Ondansetron HCl (Zofran Inj) 4 mg Q4H PRN IV NAUSEA/VOMITING Last administered on 12/17/18at 01:44; Admin Dose 4 MG; Start 12/17/18 at 01:41 Gabapentin (Neurontin) 300 mg QHS PO ; Start 12/16/18 at 21:00 Pantoprazole (Protonix Tab) 40 mg DAILY@06 PO Last administered on 12/17/18at 05:23; Admin Dose 40 MG; Start 12/17/18 at 06:00 Docusate Sodium (Colace) 200 mg BID PO Last administered on 12/17/18at 09:06; Admin Dose 200 MG; Start 12/17/18 at 09:00; Stop 12/19/18 at 21:01 Simethicone (Mylicon) 80 mg TID PRN PO .GAS; Start 12/16/18 at 17:00 Senna/Docusate Sodium (Senokot-S) 2 tab BID PRN PO .CONSTIPATION; Start 12/16/18 at 17:00 Magnesium Hydroxide (Milk Of Mag) 30 ml HS PRN PO .CONSTIPATION; Start 12/16/18 at 17:00 Bisacodyl (Dulcolax Supp) 10 mg DAILY PRN [place] .CONSTIPATION; Start 12/16/18 at 17:00 Sodium Biphosphate/ Sodium Phosphate (Fleet Enema) 133 ml DAILY PRN [place] .CONSTIPATION; Start 12/16/18 at 17:00 Diphenhydramine HCl (Benadryl) 25 mg Q4H PRN IV .ITCHING; Start 12/16/18 at 17:00 Naloxone HCl (Narcan) 0.2 mg Q2M PRN IV .RESP RATE; Start 12/16/18 at 17:00 IV Flush (NS 3 ml) 3 ml per protocol IV ; Start 12/16/18 at 17:00 Bethanechol Chloride (Urecholine) 25 mg URINARY CATH D/C PRN PO UNABLE TO VOID; Start 12/16/18 at 17:00 Aspirin (Halfprin) 81 mg BID PO Last administered on 12/17/18at 09:06; Admin Dose 81 MG; Start 12/17/18 at 09:00 EZETIMIBE (Zetia) 10 mg DAILY PO Last administered on 12/17/18at 09:06; Admin Dose 10 MG; Start 12/17/18 at 09:00 Diagnostic Test (Pha) (Accu-Chek) 1 ea AC MEALS AND BEDTIME XX ; Start 12/17/18 at 21:00 Ferrous Sulfate (Ferrous Sulfate (Ec)) 325 mg BID PO ; Start 12/17/18 at 21:00 CASH GONZÁLES MD Dec 17, 2018 18:24
[2018-12-17] MEDS ORDERED: FERROUS SULFATE (EC) 325 MG TAB PO SCH (21:00)
[2018-12-17] MEDS ORDERED: ACCU-CHEK XX SCH (21:00)
== END 2018-12-17 18:45 | DRG 470 ==
LOC: REC 07:49 → MS1 18:34
PROVIDERS: ADMIT Orthopaedic Surgery Adult Reconstructive Orthopaedic Surgery; ATTEND Orthopaedic Surgery Adult Reconstructive Orthopaedic Surgery
PROC: 0QS704Z Reposition Left Upper Femur with Internal Fixation Device, Open Approach (ICD-10-PCS; 2018-12-16)
PROC: 0SRB04Z Replacement of Left Hip Joint with Ceramic on Polyethylene Synthetic Substitute, Open Approach (ICD-10-PCS; principal; 2018-12-16 12:00)
DX: M16.12 Unilateral primary osteoarthritis, left hip (principal); M97.02XA Periprosthetic fracture around internal prosthetic left hip joint, initial encounter; M96.662 Fracture of femur following insertion of orthopedic implant, joint prosthesis, or bone plate, left leg; D62 Acute posthemorrhagic anemia; Y83.8 Other surgical procedures as the cause of abnormal reaction of the patient, or of later complication, without mention of misadventure at the time of the procedure; E78.5 Hyperlipidemia, unspecified; R81 Glycosuria; R73.9 Hyperglycemia, unspecified
CPT/HCPCS: 72170; 73500; 73530; 80048; 81001; 85025; 85610; 86850; 86900; 86901; 87081; 87086; 88304; 88311; 97110; 97116; 97161; 97165; 97530; C1713; C1776; J0131; J0171; J0690; J0735; J1100; J1885; J2250; J2274; J2405; J2765; J2795; J7120

== ENCOUNTER 2018-12-17 16:25 | Inpatient (IN) | payer MEDICARE, BC ==
[~2018-12-17] VITALS: Ht 157.5 cm; Wt 67.9 kg
[~2018-12-17 16:25] MED LIST changes: -ACETAMINOPHEN 500 MG TAB PO ONE; -CEFAZOLIN 2 GM/50 ML (PMX) 50 ML IVPB ONE; -CELECOXIB 200 MG CAP PO ONE; -DEXAMETHASONE 4 MG/ML 1 ML INJ IV ONE; -LACTATED RINGER'S 1,000 ML IV* SCH; -LANSOPRAZOLE 30 MG CAP PO ONE; -ONDANSETRON 4 MG INJ IV ONE; +SIMV10TA PO; -TRANEXAMIC ACID 1GM/100ML(PMX) 100 ML AT CLOSING IVPB ONE; -TRANEXAMIC ACID 1GM/100ML(PMX) 100 ML PRE-OP IVPB ONE
[2018-12-17] MEDS ORDERED: OXYC-481 PO (16:58)
[2018-12-17] MEDS ORDERED: ASPI-1044 PO (16:58)
[2018-12-17] MEDS ORDERED: GABA300C16 PO (16:58)
[2018-12-17 20:00] VITALS: Ht 157.5 cm; Wt 67.9 kg
[2018-12-17] MEDS ORDERED: NACL 0.9% 3 ML SYG IV SCH (21:24)
[2018-12-17] MEDS ORDERED: GABAPENTIN 300 MG CAP PO SCH (21:24)
[2018-12-17] MEDS ORDERED: NALOXONE (0.4 MG/ML) INJ IV PRN (21:24)
[2018-12-17] MEDS ORDERED: BETHANECHOL 25 MG TAB PO PRN (21:24)
[2018-12-17] MEDS ORDERED: oxyCODONE 5 MG TAB PO PRN ×3 (21:24)
[2018-12-17] MEDS ORDERED: FERROUS SULFATE (EC) 325 MG TAB PO SCH (21:24)
[2018-12-17] MEDS ORDERED: DIPHENHYDRAMINE 50 MG INJ IV PRN (21:24)
[2018-12-17] MEDS ORDERED: ONDANSETRON 4 MG INJ IV PRN (21:24)
[2018-12-17] MEDS ORDERED: ASPIRIN (EC) 81 MG TAB PO SCH (21:24)
[2018-12-17] MEDS ORDERED: NA PHOSPHATE/BIPHOS 133 ML ENEMA PR PRN (21:24)
[2018-12-17] MEDS ORDERED: LACTATED RINGER'S 1,000 ML IV SCH (21:24)
[2018-12-17] MEDS ORDERED: HYDROmorphONE 1 MG/ML SYG IV PRN (21:24)
[2018-12-17] MEDS ORDERED: DOCUSATE SODIUM 100 MG CAP PO SCH (21:24)
[2018-12-17] MEDS ORDERED: MAGNESIUM HYDROXIDE 30ML CUP PO PRN (21:24)
[2018-12-17] MEDS ORDERED: BISACODYL 10 MG SUPP PR PRN (21:24)
[2018-12-17] MEDS: ACETAMINOPHEN 500 MG TAB PO SCH (21:43)
[2018-12-17] MEDS: ASPIRIN (EC) 81 MG TAB PO SCH (23:16)
[2018-12-17] MEDS: FERROUS SULFATE (EC) 325 MG TAB PO SCH (23:17)
[2018-12-17] MEDS: GABAPENTIN 300 MG CAP PO SCH (23:17)
[2018-12-17] MEDS: DOCUSATE SODIUM 100 MG CAP PO SCH (23:27)
[2018-12-18 01:27] VITALS: BP 114/56; PULSE 65; RESP 18
[2018-12-18 01:51] VITALS: BP 107/62; PULSE 72; RESP 18
[2018-12-18] MEDS: ACETAMINOPHEN 500 MG TAB PO SCH ×3 (06:15→22:00)
[2018-12-18] MEDS: PANTOPRAZOLE (EC) 40 MG TAB PO SCH (06:15)
[2018-12-18 07:00] VITALS: BP 134/60; PULSE 57; RESP 18
[2018-12-18] MEDS: ACCU-CHEK XX SCH ×4 (07:51→20:28)
[2018-12-18] MEDS: FERROUS SULFATE (EC) 325 MG TAB PO SCH ×2 (09:42→20:27)
[2018-12-18] MEDS: DOCUSATE SODIUM 100 MG CAP PO SCH ×2 (09:42→20:27)
[2018-12-18] MEDS: ASPIRIN (EC) 81 MG TAB PO SCH ×2 (09:42→20:28)
[2018-12-18] MEDS: EZETIMIBE 10 MG TAB PO SCH (09:42)
[2018-12-18] MEDS ORDERED: DIPHENHYDRAMINE 25 MG CAP PO PRN (12:30)
[2018-12-18] MEDS: HYDROCODONE/APAP (5/325) TAB PO PRN (12:34)
--- NOTE | 2018-12-18 13:51 | CONS ---
Assessment/Plan Assessment/Plan Problems: (1) Hyperglycemia Status: Acute Comment: Likely due to dexamethasone given intraoperatively. FS glucose levels normal. FBG normal today. Will cont. accu-chek x 24 more hours. If remains normal will d/c. (2) Postoperative anemia due to acute blood loss Status: Acute Comment: Mild. Cont. FeSO4 bid. (3) Pure hypercholesterolemia Status: Chronic Comment: Cont. zetia daily (4) Aftercare following left hip joint replacement surgery Status: Acute Comment: Doing fair POD#2. Increased pain on this day as expected. Now in ARU and should cont. PT. Did not tolerate oxycodone so agree w/ primary team to switch to low-dose hydrocodone and if also not tolerating could consider tramadol. Will follow w/ you. Consultation Date/Type/Reason Admit Date/Time Dec 17, 2018 at 18:49 Initial Consult Date 12/15/2018 Type of Consult Medicine Reason for Consultation Medical Management Requesting Provider: UNIQUE LUIS MD Date/Time of Note DATE: 12/18/18 TIME: 13:47 24 HR Interval Summary Constitutional: no complaints Detailed Summary Respiratory: no complaints Cardiovascular: no complaints Gastrointestinal: no complaints Genitourinary: no complaints Musculoskeletal: bone/joint pain (worse today. Pain OOC. Cannot even sit up in wheelchair. ) Neurologic: confusion (did not tolerate oxycodone. Caused hallucinations) Exam/Review of Systems Exam Vitals VS - Last 72 Hours, by Label Date Temp Pulse Resp B/P (MAP) Pulse Ox O2 O2 Flow FiO2 Time Delivery Rate 12/18/18 97.8 57 18 134/60 94 Room Air 07:00 (84) 12/18/18 97.8 72 18 107/62 95 Room Air 01:51 (77) 12/18/18 98.3 65 18 114/56 97 Room Air 01:27 (75) Vital Signs Date Temp Pulse Resp B/P (MAP) Pulse Ox O2 O2 Flow FiO2 Time Delivery Rate 12/18/18 97.8 57 18 134/60 94 Room Air 07:00 (84) Intake and Output 12/17/18 12/17/18 12/18/18 1414:59 22:59 06:59 IntakeIntake Total 240 ml BalanceBalance 240 ml Constitutional: alert, oriented, well developed Psych: no complaints, nl mood/affect Respiratory: clear to auscultation, normal air movement Cardiovascular: regular rate and rhythm, nl pulses; No edema, No murmurs/extra sounds, No rub Gastrointestinal: soft, nl liver, spleen, non-tender, bowel sounds; No mass, No rebound or guarding Musculoskeletal: nl extremities to inspection Extremities: normal pulses; No cyanosis, No clubbing, No edema 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, nl mental status, nl speech, nl strength Additional Comments Bedside Glucose - 72 Hours Test 12/17/18 21:45 12/18/18 07:51 12/18/18 11:45 Bedside Glucose 130 mg/dL (70-220) 91 mg/dL (70-220) 105 mg/dL (70-220) Results Result Diagram: 12/18/1862812/18/18628 Results 24hrs Laboratory Tests Test 12/17/18 20:35 12/17/18 21:45 12/18/18 06:29 12/18/18 07:51 Urine Color STRAW Urine Clarity CLEAR Urine pH 6.0 Urine Specific 1.008 [place] Urine Ketones NEGATIVE Urine Nitrite NEGATIVE Urine Bilirubin NEGATIVE Urine Urobilinogen NEGATIVE Urine Leukocyte NEGATIVE Esterase Urine Hemoglobin NEGATIVE Urine Glucose NEGATIVE Urine Total Protein NEGATIVE Bedside Glucose 130 91 White Blood Count 9.5 # Red Blood Count 3.13 L Hemoglobin 9.3 L Hematocrit 29.0 L Mean Corpuscular 92.7 Volume Mean Corpuscular 29.7 Hemoglobin Mean Corpuscular 32.1 Hemoglobin Concent Red Cell 13.8 Distribution Width Platelet Count 179 Mean Platelet Volume 11.5 H Immature 0.400 Granulocytes % Neutrophils % 67.3 Lymphocytes % 21.4 Monocytes % 9.8 Eosinophils % 1.0 Basophils % 0.1 Nucleated Red Blood 0.0 Cells % Immature 0.040 H Granulocytes # Neutrophils # 6.4 Lymphocytes # 2.0 Monocytes # 0.9 Eosinophils # 0.1 Basophils # 0.0 Nucleated Red Blood 0.0 Cells # Sodium Level 141 Potassium Level 3.7 Chloride Level 107 Carbon Dioxide Level 28 Anion Gap 6 Blood Urea Nitrogen 17 Creatinine 0.57 Est Glomerular Filtrat Rate mL/min Glucose Level 83 # Calcium Level 8.9 Total Bilirubin 0.4 Direct Bilirubin 0.00 Indirect Bilirubin 0.4 Aspartate Amino 60 H Transf (AST/SGOT) Alanine 25 Aminotransferase (AL T/SGPT) Alkaline Phosphatase 52 Total Protein 5.8 L Albumin 3.3 Globulin 2.50 Albumin/Globulin 1.32 Ratio Test 12/18/18 11:45 Bedside Glucose 105 Medications Medication Current Medications Acetaminophen (Tylenol Tab) 1,000 mg Q8 PO Last administered on 12/18/18at 06:15; Admin Dose 1,000 MG; Start 12/17/18 at 21:24 Ondansetron HCl (Zofran Inj) 4 mg Q4H PRN IV NAUSEA/VOMITING; Start 12/17/18 at 21:24 Pantoprazole (Protonix Tab) 40 mg DAILY@06 PO Last administered on 12/18/18at 06:15; Admin Dose 40 MG; Start 12/17/18 at 21:24 Simethicone (Mylicon) 80 mg TID PRN PO .GAS; Start 12/17/18 at 21:24 Senna/Docusate Sodium (Senokot-S) 2 tab BID PRN PO .CONSTIPATION; Start 12/17/18 at 21:24 Magnesium Hydroxide (Milk Of Mag) 30 ml HS PRN PO .CONSTIPATION Last administered on 12/18/18at 12:37; Admin Dose 30 ML; Start 12/17/18 at 21:24 Bisacodyl (Dulcolax Supp) 10 mg DAILY PRN [place] .CONSTIPATION; Start 12/17/18 at 21:24 Sodium Biphosphate/ Sodium Phosphate (Fleet Enema) 133 ml DAILY PRN [place] .CONSTIPATION; Start 12/17/18 at 21:24 Naloxone HCl (Narcan) 0.2 mg Q2M PRN IV .RESP RATE; Start 12/17/18 at 21:24 IV Flush (NS 3 ml) 3 ml per protocol IV ; Start 12/17/18 at 21:24 EZETIMIBE (Zetia) 10 mg DAILY PO Last administered on 12/18/18at 09:42; Admin Dose 10 MG; Start 12/17/18 at 21:24 Diagnostic Test (Pha) (Accu-Chek) 1 ea AC MEALS AND BEDTIME XX Last administered on 12/18/18at 11:30; Admin Dose 1 EA; Start 12/17/18 at 21:24 Gabapentin (Neurontin) 300 mg QHS PO Last administered on 12/17/18at 23:17; Admin Dose 300 MG; Start 12/17/18 at 23:00 Aspirin (Halfprin) 81 mg BID PO Last administered on 12/18/18 09:42; Admin Dose 81 MG; Start 12/17/18 at 23:00 Ferrous Sulfate (Ferrous Sulfate (Ec)) 325 mg BID PO Last administered on 12/18/18 09:42; Admin Dose 325 MG; Start 12/17/18 at 23:00 Docusate Sodium (Colace) 200 mg BID PO Last administered on 12/18/18 09:42; Admin Dose 200 MG; Start 12/17/18 at 23:00; Stop 12/19/18 at 22:59 Acetaminophen/ Hydrocodone Bitart ([place] (5/325)) 1 tab Q4H PRN PO PAIN LEVEL 6-10 Last administered on 12/18/18at 12:34; Admin Dose 1 TAB; Start 12/18/18 at 12:26 Diphenhydramine HCl (Benadryl) 25 mg Q4 PRN PO ITCHING; Start 12/18/18 at 12:30 CASH GONZÁLES MD Dec 18, 2018 13:51
[2018-12-18 14:00] VITALS: BP 110/57; PULSE 72; RESP 18
--- NOTE | 2018-12-18 17:29 | CONS ---
DATE OF ADMISSION: 12/17/2018 DATE OF CONSULTATION: 12/18/2018 TYPE OF CONSULTATION: Rehabilitation post-admission physician evaluation. REHABILITATION IMPAIRMENT CATEGORY: Left hip fracture in patient status post left total hip arthroplasty and ORIF of periprosthetic fracture. ACTIVE COMORBIDITIES: 1. Acute pain syndrome. 2. Constipation. 3. Hyperlipidemia. 4. Impairments in self-care and mobility. HISTORY OF PRESENT ILLNESS: The patient is a very pleasant 73-year-old female who had been noting severe increasing hip pain despite conservative measures and underwent a left total hip arthroplasty. The patient was noted to have iatrogenic periprosthetic fracture and did undergo an ORIF of the periprosthetic fracture. Postoperatively, the patient was noted to have significant pain in addition to constipation and significant impairments in self-care and mobility as compared to baseline. The patient has been cleared FUNCTIONAL HISTORY: Prior to recent events, she was independent in self-care tasks and mobility. Currently, the patient requires moderate to maximal assist for self-care and mobility tasks. I have reviewed the preadmission screen and the patient's current functional status is consistent with the preadmission screen. FAMILY AND SOCIAL HISTORY: The patient lives at home with her and hopes to return there upon discharge. PAST MEDICAL HISTORY: 1. Osteoarthritis. 2. Hyperlipidemia. 3. History of cataract surgery. 4. History of varicose vein surgery. CURRENT MEDICATIONS: 1. Aspirin 81 mg p.o. b.i.d. 2. Senokot p.r.n. 3. Colace b.i.d. 4. Zetia 10 mg p.o. daily. 5. Neurontin 300 mg p.o. at bedtime. 6. Ferrous sulfate 325 p.o. b.i.d. ALLERGIES: THE PATIENT WITH NO KNOWN DRUG ALLERGIES. PHYSICAL EXAMINATION: VITAL SIGNS: She is currently afebrile with stable vital signs. HEENT: Extraocular motions are intact. Oropharynx is clear. NECK: Supple. LUNGS: Clear anteriorly. CARDIAC: S1, S2. ABDOMEN: Soft, nontender, positive bowel sounds. NEUROLOGIC: She is awake and alert and oriented x3. She can follow simple 1- step commands. She demonstrates antigravity strength in bilateral upper extremity and the right lower extremity. Dorsiflexion and plantar flexion is intact on the left. PLAN: The patient has been admitted for comprehensive interdisciplinary acute rehab and is anticipated to tolerate 3 hours of daily therapy in divided doses for at least 5/7 days a week. The treatment plan will include: 1. Physical therapy to focus on bed mobility, transfers and household ambulation with the goal of having patient reach a standby assist level. 2. Occupational therapy to focus on hygiene, grooming, dressing, bathing and toileting activities with the goal of having the patient reach a standby assist level. 3. Rehabilitation nursing for carryover of therapeutic interventions, the goal of continent of bowel and bladder with bowel program, the goal of pain adequately managed on oral medications and patient education with regard to the aforementioned issues. REHABILITATION BARRIER: Pain. INTERVENTION FOR BARRIER: Interdisciplinary approach. Estimated Length of stay: 14 days I acknowledge that I performed a full physical examination on this patient within 24 hours of admission to the rehabilitation unit. As a board certified clinical education specialist and PM and R, I attest that this patient qualifies for an interdisciplinary acute rehabilitation unit stay and is best managed at this level of care. The patient has potential to make improvement and is in need of multidisciplinary approach including physical therapy, occupational therapy, nutritional services and rehabilitation nursing in addition to physician oversight. After thorough review of the patient's medical records and physical examination, I believe that this patient meets criteria for acute rehabilitation unit level of care under [facility] guidelines. The patient has expressed a good understanding of the rehabilitation program including her discharge process. Dictated By: EMANUEL SR/FATOUMATA Conf#: [id number] DID#: [id number] CC: CASH GONZÁLES MD;*EndCC* MTDD
[2018-12-18 20:04] VITALS: BP 104/55; PULSE 69; RESP 18
[2018-12-18] MEDS: GABAPENTIN 300 MG CAP PO SCH (20:27)
[2018-12-19 02:50] VITALS: BP 126/59; PULSE 71; RESP 18
[2018-12-19] MEDS: ACETAMINOPHEN 500 MG TAB PO SCH ×3 (06:00→21:05)
[2018-12-19] MEDS: PANTOPRAZOLE (EC) 40 MG TAB PO SCH (06:48)
[2018-12-19] MEDS: HYDROCODONE/APAP (5/325) TAB PO PRN (06:48)
[2018-12-19 07:00] VITALS: BP 134/69; PULSE 67; RESP 18
[2018-12-19] MEDS: ACCU-CHEK XX SCH ×3 (08:20→17:24)
[2018-12-19] MEDS: SENNA/DOCUSATE NA (8.6MG/50MG) TAB PO PRN (08:54)
[2018-12-19] MEDS: ASPIRIN (EC) 81 MG TAB PO SCH ×2 (08:54→21:02)
[2018-12-19] MEDS: EZETIMIBE 10 MG TAB PO SCH (08:54)
[2018-12-19] MEDS: FERROUS SULFATE (EC) 325 MG TAB PO SCH ×2 (08:54→21:01)
[2018-12-19] MEDS: DOCUSATE SODIUM 100 MG CAP PO SCH ×2 (08:54→21:00)
--- NOTE | 2018-12-19 10:51 | PN ---
Date/Time of Note Date/Time of Note DATE: 12/19/18 TIME: 10:49 Subjective Patient comfortable, but reports constipation Objective Vital Signs Date Temp Pulse Resp B/P (MAP) Pulse Ox O2 O2 Flow FiO2 Time Delivery Rate 12/19/18 98.9 67 18 134/69 92 Room Air 07:00 (90) Intake and Output 12/18/18 12/18/18 12/19/18 1515:00 23:00 07:00 IntakeIntake Total 800 ml 260 ml OutputOutput Total 600 ml BalanceBalance 200 ml 260 ml Exam pulm-cta abd-soft mod assist transfer Results/Medications Result Diagram: 12/18/18 0612/18/18 06 Results 24 hrs Laboratory Tests Test 12/18/18 11:45 12/18/18 17:24 12/18/18 20:31 12/19/18 08:17 Bedside Glucose 105 107 90 147 Medications Current Medications Acetaminophen (Tylenol Tab) 1,000 mg Q8 PO Last administered on 12/18/18at 14:24; Admin Dose 1,000 MG; Start 12/17/18 at 21:24 Ondansetron HCl (Zofran Inj) 4 mg Q4H PRN IV NAUSEA/VOMITING; Start 12/17/18 at 21:24 Pantoprazole (Protonix Tab) 40 mg DAILY@06 PO Last administered on 12/19/18 06:48; Admin Dose 40 MG; Start 12/17/18 at 21:24 Simethicone (Mylicon) 80 mg TID PRN PO .GAS; Start 12/17/18 at 21:24 Senna/Docusate Sodium (Senokot-S) 2 tab BID PRN PO .CONSTIPATION Last administered on 12/19/18 08:54; Admin Dose 2 TAB; Start 12/17/18 at 21:24 Magnesium Hydroxide (Milk Of Mag) 30 ml HS PRN PO .CONSTIPATION Last administered on 12/18/18at 12:37; Admin Dose 30 ML; Start 12/17/18 at 21:24 Bisacodyl (Dulcolax Supp) 10 mg DAILY PRN [place] .CONSTIPATION; Start 12/17/18 at 21:24 Sodium Biphosphate/ Sodium Phosphate (Fleet Enema) 133 ml DAILY PRN [place] .CONSTIPATION; Start 12/17/18 at 21:24 Naloxone HCl (Narcan) 0.2 mg Q2M PRN IV .RESP RATE; Start 12/17/18 at 21:24 IV Flush (NS 3 ml) 3 ml per protocol IV ; Start 12/17/18 at 21:24 EZETIMIBE (Zetia) 10 mg DAILY PO Last administered on 12/19/18 08:54; Admin Dose 10 MG; Start 12/17/18 at 21:24 Diagnostic Test (Pha) (Accu-Chek) 1 ea AC MEALS AND BEDTIME XX Last administered on 12/19/18 08:20; Admin Dose 1 EA; Start 12/17/18 at 21:24 Gabapentin (Neurontin) 300 mg QHS PO Last administered on 12/18/18 20:27; Admin Dose 300 MG; Start 12/17/18 at 23:00 Aspirin (Halfprin) 81 mg BID PO Last administered on 12/19/18 08:54; Admin Dose 81 MG; Start 12/17/18 at 23:00 Ferrous Sulfate (Ferrous Sulfate (Ec)) 325 mg BID PO Last administered on 12/19/18 08:54; Admin Dose 325 MG; Start 12/17/18 at 23:00 Docusate Sodium (Colace) 200 mg BID PO Last administered on 12/19/18 08:54; A dmin Dose 200 MG; Start 12/17/18 at 23:00; Stop 12/19/18 at 22:59 Acetaminophen/ Hydrocodone Bitart ([place] (5/325)) 1 tab Q4H PRN PO PAIN LEVEL 6-10 Last administered on 12/19/18 06:48; Admin Dose 1 TAB; Start 12/18/18 at 12:26 Diphenhydramine HCl (Benadryl) 25 mg Q4 PRN PO ITCHING Last administered on 12/19/18 02:13; Admin Dose 25 MG; Start 12/18/18 at 12:30 Assessment/Plan Additional Assessment/Plan Rehab- Left hip fracture in patient status post left total hip arthroplasty and ORIF of periprosthetic fracture. Better today, continue rehab Acute pain syndrome-better on norco Constipation-bowel program Hyperlipidemia. EMANUEL HERNANDEZ MD Dec 19, 2018 10:51
[2018-12-19] MEDS: LACTULOSE 30ML CUP PO PRN (11:31)
[2018-12-19 14:00] VITALS: BP 104/56; PULSE 73; RESP 18
--- NOTE | 2018-12-19 18:12 | CONS ---
Assessment/Plan Assessment/Plan Problems: (1) Insomnia due to medical condition Status: Acute Comment: Per pt. request, add melatonin nightly (2) Hyperglycemia Status: Acute Comment: Mild fasting hyperglycemia but not enough to warrant ongoing accu- checks. No need for further monitoring. (3) Pure hypercholesterolemia Status: Chronic Comment: Cont. zetia (4) Postoperative anemia due to acute blood loss Status: Acute Comment: Cont. FeSO4 (5) Aftercare following left hip joint replacement surgery Status: Acute Comment: Doing well POD#3. Pain controlled. Cont. PT in ARU. Consultation Date/Type/Reason Admit Date/Time Dec 17, 2018 at 18:49 Initial Consult Date 12/15/2018 Type of Consult Medicine Reason for Consultation Medical Management Requesting Provider: UNIQUE LUIS MD Date/Time of Note DATE: 12/19/18 TIME: 18:09 24 HR Interval Summary Constitutional: no complaints, improved (ambulating w/ PT) Detailed Summary Respiratory: no complaints Cardiovascular: no complaints Gastrointestinal: no complaints Genitourinary: no complaints Musculoskeletal: bone/joint pain (R hip much better and pain control better today) Neurologic: other (insomnia b/c has to sleep on back) Exam/Review of Systems Exam Vitals VS - Last 72 Hours, by Label Date Temp Pulse Resp B/P (MAP) Pulse Ox O2 O2 Flow FiO2 Time Delivery Rate 12/19/18 98.6 73 18 104/56 94 Room Air 14:00 (72) 12/19/18 98.9 67 18 134/69 92 Room Air 07:00 (90) 12/19/18 98.6 71 18 126/59 93 Room Air 02:50 (81) 12/18/18 97.9 69 18 104/55 98 Room Air 20:04 (71) 12/18/18 97.4 72 18 110/57 95 Room Air 14:00 (74) 12/18/18 97.8 57 18 134/60 94 Room Air 07:00 (84) 12/18/18 97.8 72 18 107/62 95 Room Air 01:51 (77) 12/18/18 98.3 65 18 114/56 97 Room Air 01:27 (75) Vital Signs Date Temp Pulse Resp B/P (MAP) Pulse Ox O2 O2 Flow FiO2 Time Delivery Rate 12/19/18 98.6 73 18 104/56 94 Room Air 14:00 (72) Intake and Output 12/18/18 12/18/18 12/19/18 1414:59 22:59 06:59 IntakeIntake Total 800 ml 260 ml OutputOutput Total 600 ml BalanceBalance 200 ml 260 ml Constitutional: alert, oriented, well developed Psych: no complaints, nl mood/affect Respiratory: clear to auscultation, normal air movement Cardiovascular: regular rate and rhythm, nl pulses; No edema, No murmurs/extra sounds, No rub Gastrointestinal: soft, nl liver, spleen, non-tender, bowel sounds; No mass, No rebound or guarding Musculoskeletal: nl extremities to inspection Extremities: normal pulses; No cyanosis, No clubbing, No edema 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: POWERTRAIN ENGINEER 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, nl mental status, nl speech, nl strength Additional Comments Bedside Glucose - 72 Hours Test 12/17/18 21:45 12/18/18 07:51 12/18/18 11:45 12/18/18 17:24 Bedside 130 91 105 107 Glucose mg/dL (70-220) mg/dL (70-220) mg/dL (70-220) mg/dL (70-220) Test 12/18/18 20:31 12/19/18 08:17 12/19/18 11:31 12/19/18 17:22 Bedside 90 147 140 90 Glucose mg/dL (70-220) mg/dL (70-220) mg/dL (70-220) mg/dL (70-220) Results Result Diagram: 12/18/1829 12/18/1829 Results 24hrs Laboratory Tests Test 12/18/18 20:31 12/19/18 08:17 12/19/18 11:31 12/19/18 17:22 Bedside Glucose 90 147 140 90 Medications Medication Current Medications Acetaminophen (Tylenol Tab) 1,000 mg Q8 PO Last administered on 12/19/18at 13:15; Admin Dose 1,000 MG; Start 12/17/18 at 21:24 Ondansetron HCl (Zofran Inj) 4 mg Q4H PRN IV NAUSEA/VOMITING; Start 12/17/18 at 21:24 Pantoprazole (Protonix Tab) 40 mg DAILY@06 PO Last administered on 12/19/18at 06:48; Admin Dose 40 MG; Start 12/17/18 at 21:24 Simethicone (Mylicon) 80 mg TID PRN PO .GAS; Start 12/17/18 at 21:24 Senna/Docusate Sodium (Senokot-S) 2 tab BID PRN PO .CONSTIPATION Last administered on 12/19/18 08:54; Admin Dose 2 TAB; Start 12/17/18 at 21:24 Magnesium Hydroxide (Milk Of Mag) 30 ml HS PRN PO .CONSTIPATION Last administered on 12/18/18 12:37; Admin Dose 30 ML; Start 12/17/18 at 21:24 Bisacodyl (Dulcolax Supp) 10 mg DAILY PRN [place] .CONSTIPATION; Start 12/17/18 at 21:24 Sodium Biphosphate/ Sodium Phosphate (Fleet Enema) 133 ml DAILY PRN [place] .CONSTIPATION; Start 12/17/18 at 21:24 Naloxone HCl (Narcan) 0.2 mg Q2M PRN IV .RESP RATE; Start 12/17/18 at 21:24 IV Flush (NS 3 ml) 3 ml per protocol IV ; Start 12/17/18 at 21:24 EZETIMIBE (Zetia) 10 mg DAILY PO Last administered on 12/19/18 08:54; Admin Dose 10 MG; Start 12/17/18 at 21:24 Gabapentin (Neurontin) 300 mg QHS PO Last administered on 12/18/18 20:27; Admin Dose 300 MG; Start 12/17/18 at 23:00 Aspirin (Halfprin) 81 mg BID PO Last administered on 12/19/18 08:54; Admin Dose 81 MG; Start 12/17/18 at 23:00 Ferrous Sulfate (Ferrous Sulfate (Ec)) 325 mg BID PO Last administered on 12/19/18 08:54; Admin Dose 325 MG; Start 12/17/18 at 23:00 Docusate Sodium (Colace) 200 mg BID PO Last administered on 12/19/18 08:54; Admin Dose 200 MG; Start 12/17/18 at 23:00; Stop 12/19/18 at 22:59 Acetaminophen/ Hydrocodone Bitart ([place] (5/325)) 1 tab Q4H PRN PO PAIN LEVEL 6-10 Last administered on 12/19/18 06:48; Admin Dose 1 TAB; Start 12/18/18 at 12:26 Diphenhydramine HCl (Benadryl) 25 mg Q4 PRN PO ITCHING Last administered on 12/19/18at 02:13; Admin Dose 25 MG; Start 12/18/18 at 12:30 Lactulose (Enulose) 20 gm DAILY PRN PO CONSTIPATION Last administered on 12/19/18at 11:31; Admin Dose 20 [place]; Start 12/19/18 at 11:00 CASH GONZÁLES MD Dec 19, 2018 18:12
[2018-12-19 19:26] VITALS: BP 110/64; PULSE 71; RESP 18
[2018-12-19] MEDS: GABAPENTIN 300 MG CAP PO SCH (21:01)
[2018-12-19] MEDS: MELATONIN 5 MG TABLET PO SCH (21:01)
[2018-12-20 02:00] VITALS: BP 108/67; PULSE 67; RESP 18
[2018-12-20] MEDS: PANTOPRAZOLE (EC) 40 MG TAB PO SCH (06:45)
[2018-12-20] MEDS: ACETAMINOPHEN 500 MG TAB PO SCH ×2 (06:45→13:27)
[2018-12-20 07:46] VITALS: BP 118/61; PULSE 72; RESP 18
[2018-12-20] MEDS: ASPIRIN (EC) 81 MG TAB PO SCH ×2 (08:16→20:31)
[2018-12-20] MEDS: FERROUS SULFATE (EC) 325 MG TAB PO SCH ×2 (08:16→20:31)
[2018-12-20] MEDS: EZETIMIBE 10 MG TAB PO SCH (08:16)
--- NOTE | 2018-12-20 10:37 | PN ---
Date/Time of Note Date/Time of Note DATE: 12/20/18 TIME: 10:36 Subjective Reports results with bowel program Objective Vital Signs Date Temp Pulse Resp B/P (MAP) Pulse Ox O2 O2 Flow FiO2 Time Delivery Rate 12/20/18 97.9 72 18 118/61 94 Room Air 07:46 (80) Intake and Output 12/19/18 12/19/18 12/20/18 1414:59 22:59 06:59 IntakeIntake Total 1200 ml 350 ml OutputOutput Total 800 ml 750 ml BalanceBalance 400 ml -400 ml Exam pulm-cta abd-soft mod transfer mod amb 15 feet Results/Medications Result Diagram: 12/18/1862812/18/18 06 Results 24 hrs Laboratory Tests Test 12/19/18 11:31 12/19/18 17:22 12/20/18 07:53 Bedside Glucose 140 90 122 Medications Current Medications Acetaminophen (Tylenol Tab) 1,000 mg Q8 PO Last administered on 12/20/18 06:45; Admin Dose 1,000 MG; Start 12/17/18 at 21:24 Ondansetron HCl (Zofran Inj) 4 mg Q4H PRN IV NAUSEA/VOMITING; Start 12/17/18 at 21:24 Pantoprazole (Protonix Tab) 40 mg DAILY@06 PO Last administered on 12/20/18at 06:45; Admin Dose 40 MG; Start 12/17/18 at 21:24 Simethicone (Mylicon) 80 mg TID PRN PO .GAS; Start 12/17/18 at 21:24 Senna/Docusate Sodium (Senokot-S) 2 tab BID PRN PO .CONSTIPATION Last administered on 12/19/18at 08:54; Admin Dose 2 TAB; Start 12/17/18 at 21:24 Magnesium Hydroxide (Milk Of Mag) 30 ml HS PRN PO .CONSTIPATION Last administered on 12/18/18at 12:37; Admin Dose 30 ML; Start 12/17/18 at 21:24 Bisacodyl (Dulcolax Supp) 10 mg DAILY PRN [place] .CONSTIPATION; Start 12/17/18 at 21:24 Sodium Biphosphate/ Sodium Phosphate (Fleet Enema) 133 ml DAILY PRN [place] .CONSTIPATION; Start 12/17/18 at 21:24 Naloxone HCl (Narcan) 0.2 mg Q2M PRN IV .RESP RATE; Start 12/17/18 at 21:24 IV Flush (NS 3 ml) 3 ml per protocol IV ; Start 12/17/18 at 21:24 EZETIMIBE (Zetia) 10 mg DAILY PO Last administered on 12/20/18 08:16; Admin Dose 10 MG; Start 12/17/18 at 21:24 Gabapentin (Neurontin) 300 mg QHS PO Last administered on 12/19/18 21:01; Admin Dose 300 MG; Start 12/17/18 at 23:00 Aspirin (Halfprin) 81 mg BID PO Last administered on 12/20/18 08:16; Admin Dose 81 MG; Start 12/17/18 at 23:00 Ferrous Sulfate (Ferrous Sulfate (Ec)) 325 mg BID PO Last administered on 12/20/18 08:16; Admin Dose 325 MG; Start 12/17/18 at 23:00 Acetaminophen/ Hydrocodone Bitart ([place] (5/325)) 1 tab Q4H PRN PO PAIN LEVEL 6-10 Last administered on 12/19/18 06:48; Admin Dose 1 TAB; Start 12/18/18 at 12:26 Diphenhydramine HCl (Benadryl) 25 mg Q4 PRN PO ITCHING Last administered on 12/19/18 02:13; Admin Dose 25 MG; Start 12/18/18 at 12:30 Lactulose (Enulose) 20 gm DAILY PRN PO CONSTIPATION Last administered on 12/19/18 11:31; Admin Dose 20 [place]; Start 12/19/18 at 11:00 Melatonin (Melatonin) 5 mg HS PO Last administered on 12/19/18 21:01; Admin Dose 5 MG; Start 12/19/18 at 21:00 Assessment/Plan Additional Assessment/Plan Rehab- Left hip fracture in patient status post left total hip arthroplasty and ORIF of periprosthetic fracture. Excellent gains, continue rehab Acute pain syndrome-better on norco Constipation-bowel program Hyperlipidemia. EMANUEL HERNANDEZ MD Dec 20, 2018 10:37
[2018-12-20 14:00] VITALS: BP 109/58; PULSE 83; RESP 18
--- NOTE | 2018-12-20 14:41 | CONS ---
Assessment/Plan Assessment/Plan Problems: (1) Aftercare following left hip joint replacement surgery Status: Acute Comment: PT per ARU. Will adjust analgesic regimen in order to optimize physical therapy (2) Primary osteoarthritis of left hip Status: Resolved Comment: Resolved after surgery (3) Insomnia due to medical condition Status: Acute Comment: Resolved with melatonin (4) Hyperglycemia Status: Acute Comment: No acute issues (5) Postoperative anemia due to acute blood loss Status: Acute Comment: Continue Ferrous Sulfate4 Consultation Date/Type/Reason Admit Date/Time Dec 17, 2018 at 18:49 Initial Consult Date Type of Consult Internal Medicine Reason for Consultation Post op management of non surgical issues Requesting Provider: UNIQUE LUIS MD Date/Time of Note DATE: 12/20/18 TIME: 14:35 24 HR Interval Summary Free Text/Dictation Patient with abundant pain limiting physical therapy. Exam/Review of Systems Exam Vitals Vital Signs Date Temp Pulse Resp B/P (MAP) Pulse Ox O2 O2 Flow FiO2 Time Delivery Rate 12/20/18 97.9 72 18 118/61 94 Room Air 07:46 (80) Intake and Output 12/19/18 12/19/18 12/20/18 1515:00 23:00 07:00 IntakeIntake Total 1200 ml 350 ml OutputOutput Total 800 ml 750 ml BalanceBalance 400 ml -400 ml Constitutional: alert, oriented, well developed Respiratory: normal air movement Cardiovascular: regular rate and rhythm Musculoskeletal: nl extremities to inspection Results Result Diagram: 12/18/18 0629 12/18/18 0629 Results 24hrs Laboratory Tests Test 12/19/18 17:22 12/20/18 07:53 Bedside Glucose 90 122 Medications Medication Current Medications Ondansetron HCl (Zofran Inj) 4 mg Q4H PRN IV NAUSEA/VOMITING; Start 12/17/18 at 21:24 Pantoprazole (Protonix Tab) 40 mg DAILY@06 PO Last administered on 12/20/18at 06:45; Admin Dose 40 MG; Start 12/17/18 at 21:24 Simethicone (Mylicon) 80 mg TID PRN PO .GAS; Start 12/17/18 at 21:24 Senna/Docusate Sodium (Senokot-S) 2 tab BID PRN PO .CONSTIPATION Last adminis tered on 12/19/18at 08:54; Admin Dose 2 TAB; Start 12/17/18 at 21:24 Magnesium Hydroxide (Milk Of Mag) 30 ml HS PRN PO .CONSTIPATION Last administered on 12/18/18 12:37; Admin Dose 30 ML; Start 12/17/18 at 21:24 Bisacodyl (Dulcolax Supp) 10 mg DAILY PRN [place] .CONSTIPATION; Start 12/17/18 at 21:24 Sodium Biphosphate/ Sodium Phosphate (Fleet Enema) 133 ml DAILY PRN [place] .CONSTIPATION; Start 12/17/18 at 21:24 Naloxone HCl (Narcan) 0.2 mg Q2M PRN IV .RESP RATE; Start 12/17/18 at 21:24 IV Flush (NS 3 ml) 3 ml per protocol IV ; Start 12/17/18 at 21:24 EZETIMIBE (Zetia) 10 mg DAILY PO Last administered on 12/20/18 08:16; Admin Dose 10 MG; Start 12/17/18 at 21:24 Gabapentin (Neurontin) 300 mg QHS PO Last administered on 12/19/18 21:01; Admin Dose 300 MG; Start 12/17/18 at 23:00 Aspirin (Halfprin) 81 mg BID PO Last administered on 12/20/18 08:16; Admin Dose 81 MG; Start 12/17/18 at 23:00 Ferrous Sulfate (Ferrous Sulfate (Ec)) 325 mg BID PO Last administered on 12/20/18 08:16; Admin Dose 325 MG; Start 12/17/18 at 23:00 Diphenhydramine HCl (Benadryl) 25 mg Q4 PRN PO ITCHING Last administered on 12/19/18 02:13; Admin Dose 25 MG; Start 12/18/18 at 12:30 Lactulose (Enulose) 20 gm DAILY PRN PO CONSTIPATION Last administered on 12/19/18 11:31; Admin Dose 20 GM; Start 12/19/18 at 11:00 Melatonin (Melatonin) 5 mg HS PO Last administered on 12/19/18 21:01; Admin Dose 5 MG; Start 12/19/18 at 21:00 Acetaminophen/ Hydrocodone Bitart ([place] (5/325)) 1 tab Q6H PRN PO PAIN AND/OR INFLAMMATION; Start 12/20/18 at 14:00 ESSENCE OLMEDO MD Dec 20, 2018 14:41
[2018-12-20 19:13] VITALS: BP 122/65; PULSE 72; RESP 18
[2018-12-20] MEDS: MELATONIN 5 MG TABLET PO SCH (20:31)
[2018-12-20] MEDS: GABAPENTIN 300 MG CAP PO SCH (20:31)
[2018-12-20] MEDS: HYDROCODONE/APAP (5/325) TAB PO PRN (20:33)
[2018-12-21 02:00] VITALS: BP 118/62; PULSE 77; RESP 18
[2018-12-21] MEDS: PANTOPRAZOLE (EC) 40 MG TAB PO SCH (06:52)
[2018-12-21 07:00] VITALS: BP 136/63; PULSE 65; RESP 16
[2018-12-21] MEDS: FERROUS SULFATE (EC) 325 MG TAB PO SCH ×2 (08:08→20:12)
[2018-12-21] MEDS: ASPIRIN (EC) 81 MG TAB PO SCH ×2 (08:08→20:12)
[2018-12-21] MEDS: EZETIMIBE 10 MG TAB PO SCH (08:08)
[2018-12-21] MEDS: HYDROCODONE/APAP (5/325) TAB PO PRN (12:08)
[2018-12-21 14:00] VITALS: BP 129/60; PULSE 70; RESP 16
[2018-12-21 20:00] VITALS: BP 118/58; PULSE 66; RESP 18
[2018-12-21] MEDS: GABAPENTIN 300 MG CAP PO SCH (20:11)
[2018-12-21] MEDS: MELATONIN 5 MG TABLET PO SCH (20:12)
[2018-12-21] MEDS: SENNA/DOCUSATE NA (8.6MG/50MG) TAB PO PRN (20:12)
--- NOTE | 2018-12-21 21:23 | CONS ---
Assessment/Plan Assessment/Plan Problems: (1) Aftercare following left hip joint replacement surgery Status: Acute Comment: PHYSICAL THERAPY PER ARU (2) Postoperative anemia due to acute blood loss Status: Acute Comment: WILL RE CHECK H/H IN AM. CONTINUE FERROUS SULFATE Consultation Date/Type/Reason Admit Date/Time Dec 17, 2018 at 18:49 Initial Consult Date Type of Consult Internal Medicine Reason for Consultation POST OP MANAGEMENT OF NON SURGICAL ISSUES Requesting Provider: UNIQUE LUIS MD Date/Time of Note DATE: 12/21/18 TIME: 21:21 24 HR Interval Summary Free Text/Dictation MINIMAL PAIN AT REST. NO PHYSICAL THERAPY TODAY. Exam/Review of Systems Exam Vitals Vital Signs Date Temp Pulse Resp B/P (MAP) Pulse Ox O2 O2 Flow FiO2 Time Delivery Rate 12/21/18 98.0 66 18 118/58 95 Room Air 20:00 (78) Intake and Output 12/20/18 12/20/18 12/21/18 1515:00 23:00 07:00 IntakeIntake Total 1400 ml 440 ml 790 ml BalanceBalance 1400 ml 440 ml 790 ml Constitutional: alert, oriented Neck: supple Respiratory: clear to auscultation Cardiovascular: regular rate and rhythm Musculoskeletal: nl extremities to inspection Results Result Diagram: 12/18/1862812/18/18628 Medications Medication Current Medications Ondansetron HCl (Zofran Inj) 4 mg Q4H PRN IV NAUSEA/VOMITING; Start 12/17/18 at 21:24 Pantoprazole (Protonix Tab) 40 mg DAILY@06 PO Last administered on 12/21/18at 06:52; Admin Dose 40 MG; Start 12/17/18 at 21:24 Simethicone (Mylicon) 80 mg TID PRN PO .GAS Last administered on 12/21/18at 20:13; Admin Dose 80 MG; Start 12/17/18 at 21:24 Senna/Docusate Sodium (Senokot-S) 2 tab BID PRN PO .CONSTIPATION Last administered on 12/21/18at 20:12; Admin Dose 2 TAB; Start 12/17/18 at 21:24 Magnesium Hydroxide (Milk Of Mag) 30 ml HS PRN PO .CONSTIPATION Last administe red on 12/18/18at 12:37; Admin Dose 30 ML; Start 12/17/18 at 21:24 Bisacodyl (Dulcolax Supp) 10 mg DAILY PRN [place] .CONSTIPATION; Start 12/17/18 at 21:24 Sodium Biphosphate/ Sodium Phosphate (Fleet Enema) 133 ml DAILY PRN [place] .CONSTIPATION; Start 12/17/18 at 21:24 Naloxone HCl (Narcan) 0.2 mg Q2M PRN IV .RESP RATE; Start 12/17/18 at 21:24 IV Flush (NS 3 ml) 3 ml per protocol IV ; Start 12/17/18 at 21:24 EZETIMIBE (Zetia) 10 mg DAILY PO Last administered on 12/21/18 08:08; Admin Dose 10 MG; Start 12/17/18 at 21:24 Gabapentin (Neurontin) 300 mg QHS PO Last administered on 12/21/18 20:11; Admin Dose 300 MG; Start 12/17/18 at 23:00 Aspirin (Halfprin) 81 mg BID PO Last administered on 12/21/18 20:12; Admin Dose 81 MG; Start 12/17/18 at 23:00 Ferrous Sulfate (Ferrous Sulfate (Ec)) 325 mg BID PO Last administered on 12/21/18 20:12; Admin Dose 325 MG; Start 12/17/18 at 23:00 Diphenhydramine HCl (Benadryl) 25 mg Q4 PRN PO ITCHING Last administered on 12/19/18 02:13; Admin Dose 25 MG; Start 12/18/18 at 12:30 Lactulose (Enulose) 20 gm DAILY PRN PO CONSTIPATION Last administered on 11:31; Admin Dose 20 GM; Start 12/19/18 at 11:00 Melatonin (Melatonin) 5 mg HS PO Last administered on 12/21/18 20:12; Admin Dose 5 MG; Start 12/19/18 at 21:00 Acetaminophen/ Hydrocodone Bitart ([place] (5/325)) 1 tab Q6H PRN PO PAIN AND/OR INFLAMMATION Last administered on 12/21/18 12:08; Admin Dose 1 TAB; Start 12/20/18 at 14:00 ESSENCE OLMEDO MD Dec 21, 2018 21:23
[2018-12-22 02:02] VITALS: BP 110/58; RESP 18
[2018-12-22] MEDS: PANTOPRAZOLE (EC) 40 MG TAB PO SCH (06:48)
[2018-12-22] MEDS: HYDROCODONE/APAP (5/325) TAB PO PRN ×3 (06:57→20:34)
[2018-12-22 07:00] VITALS: BP 145/65; PULSE 74; RESP 18
[2018-12-22] MEDS: ASPIRIN (EC) 81 MG TAB PO SCH ×2 (09:03→21:37)
[2018-12-22] MEDS: EZETIMIBE 10 MG TAB PO SCH (09:03)
[2018-12-22] MEDS: FERROUS SULFATE (EC) 325 MG TAB PO SCH ×2 (09:03→20:33)
--- NOTE | 2018-12-22 12:53 | PN ---
Date/Time of Note Date/Time of Note DATE: 12/22/18 TIME: 12:51 Objective Vital Signs Date Temp Pulse Resp B/P (MAP) Pulse Ox O2 O2 Flow FiO2 Time Delivery Rate 12/22/18 97.6 74 18 145/65 96 Room Air 07:00 (91) Intake and Output 12/21/18 12/21/18 12/22/18 1515:00 23:00 07:00 IntakeIntake Total 850 ml 240 ml OutputOutput Total 300 ml BalanceBalance 850 ml -60 ml Exam INTERDISCIPLINARY TEAM CONFERENCE Attended by PT, OT, ST, Correspondence Transcriber, Social Work, Rehabilitation Nursing, Heeler Machine and Pressure Vessel InspectorBus System Operator Exam: Pulm- cta Abd-soft BOWEL- Cont BLADDER-Cont SKIN- intact OT- DRESSING- mod/max BATHING-min/max TOILETING-mod/max PT- BED MOBILITY-min TRANSFERS-mod AMBULATION-mod 10 feet A/P- Interdisciplinary team conference held today. Please see interdisciplinary sheet. Working toward d.c. on 12/29 with post discharge follow up of physical therapy, occupational therapy. Results/Medications Result Diagram: 12/22/18 0849 12/18/18 0629 Results 24 hrs Laboratory Tests Test 12/22/18 08:49 Hemoglobin 10.9 L Hematocrit 33.0 L Medications Current Medications Ondansetron HCl (Zofran Inj) 4 mg Q4H PRN IV NAUSEA/VOMITING; Start 12/17/18 at 21:24 Pantoprazole (Protonix Tab) 40 mg DAILY@06 PO Last administered on 12/22/18at 06:48; Admin Dose 40 MG; Start 12/17/18 at 21:24 Simethicone (Mylicon) 80 mg TID PRN PO .GAS Last administered on 12/21/18at 20:13; Admin Dose 80 MG; Start 12/17/18 at 21:24 Senna/Docusate Sodium (Senokot-S) 2 tab BID PRN PO .CONSTIPATION Last administered on 12/21/18at 20:12; Admin Dose 2 TAB; Start 12/17/18 at 21:24 Magnesium Hydroxide (Milk Of Mag) 30 ml HS PRN PO .CONSTIPATION Last admin istered on 12/18/18at 12:37; Admin Dose 30 ML; Start 12/17/18 at 21:24 Bisacodyl (Dulcolax Supp) 10 mg DAILY PRN [place] .CONSTIPATION; Start 12/17/18 at 21:24 Sodium Biphosphate/ Sodium Phosphate (Fleet Enema) 133 ml DAILY PRN [place] .CONSTIPATION; Start 12/17/18 at 21:24 Naloxone HCl (Narcan) 0.2 mg Q2M PRN IV .RESP RATE; Start 12/17/18 at 21:24 IV Flush (NS 3 ml) 3 ml per protocol IV ; Start 12/17/18 at 21:24 EZETIMIBE (Zetia) 10 mg DAILY PO Last administered on 12/22/18 09:03; Admin Dose 10 MG; Start 12/17/18 at 21:24 Gabapentin (Neurontin) 300 mg QHS PO Last administered on 12/21/18 20:11; Ad min Dose 300 MG; Start 12/17/18 at 23:00 Aspirin (Halfprin) 81 mg BID PO Last administered on 12/22/18 09:03; Admin Dose 81 MG; Start 12/17/18 at 23:00 Ferrous Sulfate (Ferrous Sulfate (Ec)) 325 mg BID PO Last administered on 12/22/18 09:03; Admin Dose 325 MG; Start 12/17/18 at 23:00 Diphenhydramine HCl (Benadryl) 25 mg Q4 PRN PO ITCHING Last administered on 12/19/18 02:13; Admin Dose 25 MG; Start 12/18/18 at 12:30 Lactulose (Enulose) 20 gm DAILY PRN PO CONSTIPATION Last administered on 11:31; Admin Dose 20 GM; Start 12/19/18 at 11:00 Melatonin (Melatonin) 5 mg HS PO Last administered on 12/21/18 20:12; Admin Dose 5 MG; Start 12/19/18 at 21:00 Acetaminophen/ Hydrocodone Bitart ([place] (5/325)) 2 tab Q4H PRN PO SEVERE PAIN LEVEL 7-10; Start 12/22/18 at 10:30 Acetaminophen/ Hydrocodone Bitart ([place] (5/325)) 1 tab Q4H PRN PO MODERATE PAIN LEVEL 4-6 Last administered on 12/22/18 11:10; Admin Dose 1 TAB; Start 12/22/18 at 10:30 EMANUEL HERNANDEZ MD Dec 22, 2018 12:53
--- NOTE | 2018-12-22 13:55 | CONS ---
Assessment/Plan Assessment/Plan Problems: (1) Headache Status: Resolved Comment: Has self-resolved but if COHN recurs will give fiorcet 2 tabs as needed. (2) Insomnia due to medical condition Status: Acute Comment: Melatonin ineffective. Will give trazodone 50 mg prn (3) Pure hypercholesterolemia Status: Chronic Comment: Cont. zetia (4) Postoperative anemia due to acute blood loss Status: Acute Comment: Improved. Cont. FeSO4 (5) Aftercare following left hip joint replacement surgery Status: Acute Comment: Cont. PT in ARU Consultation Date/Type/Reason Admit Date/Time Dec 17, 2018 at 18:49 Initial Consult Date 12/15/2018 Type of Consult Medicine Reason for Consultation Medical management Requesting Provider: UNIQUE LUIS MD Date/Time of Note DATE: 12/22/18 TIME: 13:52 24 HR Interval Summary Constitutional: no complaints, improved Detailed Summary Respiratory: no complaints Cardiovascular: no complaints Gastrointestinal: no complaints Genitourinary: no complaints Musculoskeletal: bone/joint pain (R hip; pain intermittent. Sometimes able to get up and do therapy. Sometimes pain too great. Pain meds helpful. ) Neurologic: headache (yesterday.), other (insomnia continues to be a problem intermittently.) Exam/Review of Systems Exam Vitals VS - Last 72 Hours, by Label Date Temp Pulse Resp B/P (MAP) Pulse Ox O2 O2 Flow FiO2 Time Delivery Rate 12/22/18 97.6 74 18 145/65 96 Room Air 07:00 (91) 12/22/18 97.9 18 110/58 96 Room Air 02:02 (75) 12/21/18 98.0 66 18 118/58 95 Room Air 20:00 (78) 12/21/18 98.2 70 16 129/60 97 Room Air 14:00 (83) 12/21/18 98.2 65 16 136/63 96 Room Air 07:00 (87) 12/21/18 97.8 77 18 118/62 95 02:00 (80) 12/20/18 98.3 72 18 122/65 94 Room Air 19:13 (84) 12/20/18 97.8 83 18 109/58 96 Room Air 14:00 (75) 12/20/18 97.9 72 18 118/61 94 Room Air 07:46 (80) 12/20/18 97.8 67 18 108/67 95 Room Air 02:00 (81) 12/19/18 98.2 71 18 110/64 94 Room Air 19:26 (79) 12/19/18 98.6 73 18 104/56 94 Room Air 14:00 (72) Vital Signs Date Temp Pulse Resp B/P (MAP) Pulse Ox O2 O2 Flow FiO2 Time Delivery Rate 12/22/18 97.6 74 18 145/65 96 Room Air 07:00 (91) Intake and Output 12/21/18 12/21/18 12/22/18 1515:00 23:00 07:00 IntakeIntake Total 850 ml 240 ml OutputOutput Total 300 ml BalanceBalance 850 ml -60 ml Constitutional: alert, oriented, well developed Respiratory: clear to auscultation, normal air movement Cardiovascular: regular rate and rhythm, nl pulses; No edema, No murmurs/extra sounds, No rub Gastrointestinal: soft, nl liver, spleen, non-tender, bowel sounds; No mass, No rebound or guarding Musculoskeletal: nl extremities to inspection Extremities: normal pulses; No cyanosis, No clubbing, No edema 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: HAM FACER 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, nl mental status, nl speech, nl strength Results Result Diagram: 12/22/18 0849 12/18/18 0629 Results 24hrs Laboratory Tests Test 12/22/18 08:49 Hemoglobin 10.9 L Hematocrit 33.0 L Medications Medication Current Medications Ondansetron HCl (Zofran Inj) 4 mg Q4H PRN IV NAUSEA/VOMITING; Start 12/17/18 at 21:24 Pantoprazole (Protonix Tab) 40 mg DAILY@06 PO Last administered on 12/22/18at 06:48; Admin Dose 40 MG; Start 12/17/18 at 21:24 Simethicone (Mylicon) 80 mg TID PRN PO .GAS Last administered on 12/21/18at 20:13; Admin Dose 80 MG; Start 12/17/18 at 21:24 Senna/Docusate Sodium (Senokot-S) 2 tab BID PRN PO .CONSTIPATION Last administered on 12/21/18at 20:12; Admin Dose 2 TAB; Start 12/17/18 at 21:24 Magnesium Hydroxide (Milk Of Mag) 30 ml HS PRN PO .CONSTIPATION Last admini stered on 12/18/18 12:37; Admin Dose 30 ML; Start 12/17/18 at 21:24 Bisacodyl (Dulcolax Supp) 10 mg DAILY PRN [place] .CONSTIPATION; Start 12/17/18 at 21:24 Sodium Biphosphate/ Sodium Phosphate (Fleet Enema) 133 ml DAILY PRN [place] .CONSTIPATION; Start 12/17/18 at 21:24 Naloxone HCl (Narcan) 0.2 mg Q2M PRN IV .RESP RATE; Start 12/17/18 at 21:24 IV Flush (NS 3 ml) 3 ml per protocol IV ; Start 12/17/18 at 21:24 EZETIMIBE (Zetia) 10 mg DAILY PO Last administered on 12/22/18 09:03; Admin Dose 10 MG; Start 12/17/18 at 21:24 Gabapentin (Neurontin) 300 mg QHS PO Last administered on 12/21/18 20:11; Adm in Dose 300 MG; Start 12/17/18 at 23:00 Aspirin (Halfprin) 81 mg BID PO Last administered on 12/22/18 09:03; Admin Dose 81 MG; Start 12/17/18 at 23:00 Ferrous Sulfate (Ferrous Sulfate (Ec)) 325 mg BID PO Last administered on 12/22/18 09:03; Admin Dose 325 MG; Start 12/17/18 at 23:00 Diphenhydramine HCl (Benadryl) 25 mg Q4 PRN PO ITCHING Last administered on 12/19/18 02:13; Admin Dose 25 MG; Start 12/18/18 at 12:30 Lactulose (Enulose) 20 gm DAILY PRN PO CONSTIPATION Last administered on 11:31; Admin Dose 20 GM; Start 12/19/18 at 11:00 Acetaminophen/ Hydrocodone Bitart ([place] (5/325)) 2 tab Q4H PRN PO SEVERE PAIN LEVEL 7-10; Start 12/22/18 at 10:30 Acetaminophen/ Hydrocodone Bitart ([place] (5/325)) 1 tab Q4H PRN PO MODERATE PAIN LEVEL 4-6 Last administered on 12/22/18 11:10; Admin Dose 1 TAB; Start 12/22/18 at 10:30 CASH GONZÁLES MD Dec 22, 2018 13:55
[2018-12-22 14:00] VITALS: BP 111/57; PULSE 70; RESP 18
[2018-12-22] MEDS ORDERED: traZODone 50 MG TAB PO PRN (14:00)
[2018-12-22 19:26] VITALS: BP 125/61; PULSE 77; RESP 18
[2018-12-22] MEDS: GABAPENTIN 300 MG CAP PO SCH (20:33)
[2018-12-23 02:00] VITALS: BP 117/65; PULSE 73; RESP 18
[2018-12-23] MEDS: PANTOPRAZOLE (EC) 40 MG TAB PO SCH (05:56)
[2018-12-23 07:00] VITALS: BP 130/63; PULSE 63; RESP 18
[2018-12-23] MEDS: FERROUS SULFATE (EC) 325 MG TAB PO SCH ×2 (08:58→20:19)
[2018-12-23] MEDS: ASPIRIN (EC) 81 MG TAB PO SCH ×2 (08:58→20:19)
[2018-12-23] MEDS: HYDROCODONE/APAP (5/325) TAB PO PRN ×3 (09:00→20:19)
[2018-12-23] MEDS: EZETIMIBE 10 MG TAB PO SCH (10:26)
--- NOTE | 2018-12-23 10:34 | PN ---
Date/Time of Note Date/Time of Note DATE: 12/23/18 TIME: 10:33 Subjective C/o increased hip ain Objective Vital Signs Date Temp Pulse Resp B/P (MAP) Pulse Ox O2 O2 Flow FiO2 Time Delivery Rate 12/23/18 98.3 63 18 130/63 94 Room Air 07:00 (85) Intake and Output 12/22/18 12/22/18 12/23/18 1515:00 23:00 07:00 IntakeIntake Total 1200 ml 1030 ml OutputOutput Total 800 ml BalanceBalance 400 ml 1030 ml Exam pulm-cta abd-soft L LE- NVI Results/Medications Result Diagram: 12/22/18 0849 Medications Current Medications Ondansetron HCl (Zofran Inj) 4 mg Q4H PRN IV NAUSEA/VOMITING; Start 12/17/18 at 21:24 Pantoprazole (Protonix Tab) 40 mg DAILY@06 PO Last administered on 12/23/18at 05:56; Admin Dose 40 MG; Start 12/17/18 at 21:24 Simethicone (Mylicon) 80 mg TID PRN PO .GAS Last administered on 12/21/18at 20:13; Admin Dose 80 MG; Start 12/17/18 at 21:24 Senna/Docusate Sodium (Senokot-S) 2 tab BID PRN PO .CONSTIPATION Last administered on 12/21/18at 20:12; Admin Dose 2 TAB; Start 12/17/18 at 21:24 Magnesium Hydroxide (Milk Of Mag) 30 ml HS PRN PO .CONSTIPATION Last administered on 12/18/18at 12:37; Admin Dose 30 ML; Start 12/17/18 at 21:24 Bisacodyl (Dulcolax Supp) 10 mg DAILY PRN [place] .CONSTIPATION; Start 12/17/18 at 21:24 Sodium Biphosphate/ Sodium Phosphate (Fleet Enema) 133 ml DAILY PRN [place] .CONSTIPATION; Start 12/17/18 at 21:24 Naloxone HCl (Narcan) 0.2 mg Q2M PRN IV .RESP RATE; Start 12/17/18 at 21:24 IV Flush (NS 3 ml) 3 ml per protocol IV ; Start 12/17/18 at 21:24 EZETIMIBE (Zetia) 10 mg DAILY PO Last administered on 12/23/18at 10:26; Admin Dose 10 MG; Start 12/17/18 at 21:24 Gabapentin (Neurontin) 300 mg QHS PO Last administered on 12/22/18 20:33; Admin Dose 300 MG; Start 12/17/18 at 23:00 Aspirin (Halfprin) 81 mg BID PO Last administered on 12/23/18 08:58; Admin Dose 81 MG; Start 12/17/18 at 23:00 Ferrous Sulfate (Ferrous Sulfate (Ec)) 325 mg BID PO Last administered on 12/23/18 08:58; Admin Dose 325 MG; Start 12/17/18 at 23:00 Diphenhydramine HCl (Benadryl) 25 mg Q4 PRN PO ITCHING Last administered on 12/19/18 02:13; Admin Dose 25 MG; Start 12/18/18 at 12:30 Lactulose (Enulose) 20 gm DAILY PRN PO CONSTIPATION Last administered on 12/19/18 11:31; Admin Dose 20 GM; Start 12/19/18 at 11:00 Acetaminophen/ Hydrocodone Bitart ([place] (5/325)) 2 tab Q4H PRN PO SEVERE PAIN LEVEL 7-10 Last administered on 12/23/18 09:00; Admin Dose 2 TAB; Start 12/22/18 at 10:30 Acetaminophen/ Hydrocodone Bitart ([place] (5/325)) 1 tab Q4H PRN PO MODERATE PAIN LEVEL 4-6 Last administered on 12/22/18 20:34; Admin Dose 1 TAB; Start 12/22/18 at 10:30 Acetaminophen/ Butalbital/ Caffeine (Fioricet) 2 tab Q6H PRN PO HEADACHE; Start 12/22/18 at 14:00 Trazodone HCl (Desyrel) 50 mg HS PRN PO INSOMNIA; Start 12/22/18 at 14:00 Assessment/Plan Additional Assessment/Plan Rehab- Left hip fracture in patient status post left total hip arthroplasty and ORIF of periprosthetic fracture. Given significant pain, will check xray Acute pain syndrome-continue norco Constipation-results with bowel program Hyperlipidemia. EMANUEL HERNANDEZ MD Dec 23, 2018 10:34
[2018-12-23 14:00] VITALS: BP 127/66; PULSE 95; RESP 18
--- NOTE | 2018-12-23 19:45 | CONS ---
Assessment/Plan Assessment/Plan Problems: (1) Pure hypercholesterolemia Status: Chronic Comment: Cont. zetia (2) Postoperative anemia due to acute blood loss Status: Acute Comment: Cont. FeSO4. Pt. advised will likely need for another month to recover her H/H values. Advised that her narcotics are as responsible for constipation as FeSO4. (3) Aftercare following left hip joint replacement surgery Status: Acute Comment: Doing well. Cont. rehab. Pt. advised that PT is exhausting and she needs to be patient. Consultation Date/Type/Reason Admit Date/Time Dec 17, 2018 at 18:49 Initial Consult Date 12/15/2018 Type of Consult Medicine Reason for Consultation Medical management Requesting Provider: UNIQUE LUIS MD Date/Time of Note DATE: 12/23/18 TIME: 19:41 24 HR Interval Summary Constitutional: improved; No no complaints (pt. c/o feeling tired. Feels PT is exhausting) Detailed Summary Respiratory: no complaints Cardiovascular: no complaints Gastrointestinal: constipation (attributes to her FeSO4. Does not want meds. Is drinking prune juice. ) Genitourinary: no complaints Musculoskeletal: bone/joint pain (R hip) Neurologic: no complaints Exam/Review of Systems Exam Vitals VS - Last 72 Hours, by Label Date Temp Pulse Resp B/P (MAP) Pulse Ox O2 O2 Flow FiO2 Time Delivery Rate 12/23/18 98.1 95 18 127/66 96 Room Air 14:00 (86) 12/23/18 98.3 63 18 130/63 94 Room Air 07:00 (85) 12/23/18 97.8 73 18 117/65 96 Room Air 02:00 (82) 12/22/18 98.0 77 18 125/61 95 Room Air 19:26 (82) 12/22/18 98.2 70 18 111/57 97 Room Air 14:00 (75) 12/22/18 97.6 74 18 145/65 96 Room Air 07:00 (91) 12/22/18 97.9 18 110/58 96 Room Air 02:02 (75) 12/21/18 98.0 66 18 118/58 95 Room Air 20:00 (78) 12/21/18 98.2 70 16 129/60 97 Room Air 14:00 (83) 12/21/18 98.2 65 16 136/63 96 Room Air 07:00 (87) 12/21/18 97.8 77 18 118/62 95 02:00 (80) Vital Signs Date Temp Pulse Resp B/P (MAP) Pulse Ox O2 O2 Flow FiO2 Time Delivery Rate 12/23/18 98.1 95 18 127/66 96 Room Air 14:00 (86) Intake and Output 12/22/18 12/22/18 12/23/18 1515:00 23:00 07:00 IntakeIntake Total 1200 ml 1030 ml OutputOutput Total 800 ml BalanceBalance 400 ml 1030 ml Constitutional: alert, oriented, well developed Psych: no complaints, nl mood/affect Respiratory: clear to auscultation, normal air movement Cardiovascular: regular rate and rhythm, nl pulses; No edema, No murmurs/extra sounds, No rub Gastrointestinal: soft, nl liver, spleen, non-tender, bowel sounds; No mass, No rebound or guarding Musculoskeletal: nl extremities to inspection Extremities: normal pulses; No cyanosis, No clubbing, No edema 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: CAR RECORD CLERK 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, nl mental status, nl speech, nl strength Results Result Diagram: 12/22/18 0849 Medications Medication Current Medications Ondansetron HCl (Zofran Inj) 4 mg Q4H PRN IV NAUSEA/VOMITING; Start 12/17/18 at 21:24 Pantoprazole (Protonix Tab) 40 mg DAILY@06 PO Last administered on 12/23/18at 05:56; Admin Dose 40 MG; Start 12/17/18 at 21:24 Simethicone (Mylicon) 80 mg TID PRN PO .GAS Last administered on 12/21/18at 20:13; Admin Dose 80 MG; Start 12/17/18 at 21:24 Senna/Docusate Sodium (Senokot-S) 2 tab BID PRN PO .CONSTIPATION Last administered on 12/21/18at 20:12; Admin Dose 2 TAB; Start 12/17/18 at 21:24 Magnesium Hydroxide (Milk Of Mag) 30 ml HS PRN PO .CONSTIPATION Last administered on 12/18/18at 12:37; Admin Dose 30 ML; Start 12/17/18 at 21:24 Bisacodyl (Dulcolax Supp) 10 mg DAILY PRN [place] .CONSTIPATION; Start 12/17/18 at 21:24 Sodium Biphosphate/ Sodium Phosphate (Fleet Enema) 133 ml DAILY PRN [place] .CONSTIPATION; Start 12/17/18 at 21:24 Naloxone HCl (Narcan) 0.2 mg Q2M PRN IV .RESP RATE; Start 12/17/18 at 21:24 IV Flush (NS 3 ml) 3 ml per protocol IV ; Start 12/17/18 at 21:24 EZETIMIBE (Zetia) 10 mg DAILY PO Last administered on 12/23/18 10:26; Admin Dose 10 MG; Start 12/17/18 at 21:24 Gabapentin (Neurontin) 300 mg QHS PO Last administered on 12/22/18 20:33; Admin Dose 300 MG; Start 12/17/18 at 23:00 Aspirin (Halfprin) 81 mg BID PO Last administered on 12/23/18 08:58; Admin Dose 81 MG; Start 12/17/18 at 23:00 Ferrous Sulfate (Ferrous Sulfate (Ec)) 325 mg BID PO Last administered on 12/23/18 08:58; Admin Dose 325 MG; Start 12/17/18 at 23:00 Diphenhydramine HCl (Benadryl) 25 mg Q4 PRN PO ITCHING Last administered on 12/19/18 02:13; Admin Dose 25 MG; Start 12/18/18 at 12:30 Lactulose (Enulose) 20 gm DAILY PRN PO CONSTIPATION Last administered on 12/19/18 11:31; Admin Dose 20 GM; Start 12/19/18 at 11:00 Acetaminophen/ Hydrocodone Bitart ([place] (5/325)) 2 tab Q4H PRN PO SEVERE PAIN LEVEL 7-10 Last administered on 12/23/18 13:43; Admin Dose 2 TAB; Start 9 at 10:30 Acetaminophen/ Hydrocodone Bitart ([place] (5/325)) 1 tab Q4H PRN PO MODERATE PAIN LEVEL 4-6 Last administered on 12/22/18 20:34; Admin Dose 1 TAB; Start 12/22/18 at 10:30 Acetaminophen/ Butalbital/ Caffeine (Fioricet) 2 tab Q6H PRN PO HEADACHE; Start 12/22/18 at 14:00 Trazodone HCl (Desyrel) 50 mg HS PRN PO INSOMNIA; Start 12/22/18 at 14:00 CASH GONZÁLES MD Dec 23, 2018 19:45
[2018-12-23 20:19] VITALS: BP 126/59; PULSE 74; RESP 18
[2018-12-23] MEDS: GABAPENTIN 300 MG CAP PO SCH (20:19)
[2018-12-24 03:56] VITALS: BP 124/56; PULSE 72; RESP 18
[2018-12-24] MEDS: PANTOPRAZOLE (EC) 40 MG TAB PO SCH (06:26)
[2018-12-24] MEDS: HYDROCODONE/APAP (5/325) TAB PO PRN (06:28)
[2018-12-24 08:00] VITALS: BP 136/58; PULSE 76; RESP 18
[2018-12-24] MEDS: FERROUS SULFATE (EC) 325 MG TAB PO SCH ×2 (08:36→21:56)
[2018-12-24] MEDS: EZETIMIBE 10 MG TAB PO SCH (08:36)
[2018-12-24] MEDS: ASPIRIN (EC) 81 MG TAB PO SCH ×2 (08:36→21:56)
[2018-12-24] MEDS: ACET/BUTAL/CAFF TAB PO PRN (09:28)
--- NOTE | 2018-12-24 12:09 | PN ---
Date/Time of Note Date/Time of Note DATE: 12/24/18 TIME: 12:07 Subjective Hip pain improved, now with some neck pain, but that is also improving Objective Vital Signs Date Temp Pulse Resp B/P (MAP) Pulse Ox O2 O2 Flow FiO2 Time Delivery Rate 12/24/18 97.4 72 18 124/56 94 Room Air 03:56 (78) Intake and Output 12/23/18 12/23/18 12/24/18 1515:00 23:00 07:00 IntakeIntake Total 1200 ml 580 ml OutputOutput Total 800 ml 100 ml BalanceBalance 400 ml 480 ml Exam pulm-cta abd-soft min assist 20 feet Results/Medications Result Diagram: 12/22/18 0849 Medications Current Medications Ondansetron HCl (Zofran Inj) 4 mg Q4H PRN IV NAUSEA/VOMITING; Start 12/17/18 at 21:24 Pantoprazole (Protonix Tab) 40 mg DAILY@06 PO Last administered on 12/24/18at 06:26; Admin Dose 40 MG; Start 12/17/18 at 21:24 Simethicone (Mylicon) 80 mg TID PRN PO .GAS Last administered on 12/21/18at 20:13; Admin Dose 80 MG; Start 12/17/18 at 21:24 Senna/Docusate Sodium (Senokot-S) 2 tab BID PRN PO .CONSTIPATION Last administered on 12/21/18at 20:12; Admin Dose 2 TAB; Start 12/17/18 at 21:24 Magnesium Hydroxide (Milk Of Mag) 30 ml HS PRN PO .CONSTIPATION Last administered on 12/18/18at 12:37; Admin Dose 30 ML; Start 12/17/18 at 21:24 Bisacodyl (Dulcolax Supp) 10 mg DAILY PRN [place] .CONSTIPATION; Start 12/17/18 at 21:24 Sodium Biphosphate/ Sodium Phosphate (Fleet Enema) 133 ml DAILY PRN [place] .CONSTIPATION; Start 12/17/18 at 21:24 Naloxone HCl (Narcan) 0.2 mg Q2M PRN IV .RESP RATE; Start 12/17/18 at 21:24 IV Flush (NS 3 ml) 3 ml per protocol IV ; Start 12/17/18 at 21:24 EZETIMIBE (Zetia) 10 mg DAILY PO Last administered on 12/24/18 08:36; Admin Dose 10 MG; Start 12/17/18 at 21:24 Gabapentin (Neurontin) 300 mg QHS PO Last administered on 12/23/18 20:19; Admin Dose 300 MG; Start 12/17/18 at 23:00 Aspirin (Halfprin) 81 mg BID PO Last administered on 12/24/18 08:36; Admin Dose 81 MG; Start 12/17/18 at 23:00 Ferrous Sulfate (Ferrous Sulfate (Ec)) 325 mg BID PO Last administered on 12/24/18 08:36; Admin Dose 325 MG; Start 12/17/18 at 23:00 Diphenhydramine HCl (Benadryl) 25 mg Q4 PRN PO ITCHING Last administered on 12/19/18 02:13; Admin Dose 25 MG; Start 12/18/18 at 12:30 Lactulose (Enulose) 20 gm DAILY PRN PO CONSTIPATION Last administered on 12/19/18 11:31; Admin Dose 20 GM; Start 12/19/18 at 11:00 Acetaminophen/ Hydrocodone Bitart ([place] (5/325)) 2 tab Q4H PRN PO SEVERE PAIN LEVEL 7-10 Last administered on 12/24/18 06:28; Admin Dose 2 TAB; Start 12/22/18 at 10:30 Acetaminophen/ Hydrocodone Bitart ([place] (5/325)) 1 tab Q4H PRN PO MODERATE PAIN LEVEL 4-6 Last administered on 12/23/18 20:19; Admin Dose 1 TAB; Start 12/22/18 at 10:30 Acetaminophen/ Butalbital/ Caffeine (Fioricet) 2 tab Q6H PRN PO HEADACHE Last administered on 12/24/18 09:28; Admin Dose 2 TAB; Start 12/22/18 at 14:00 Trazodone HCl (Desyrel) 50 mg HS PRN PO INSOMNIA; Start 12/22/18 at 14:00 Lidocaine (Lidoderm) 1 patch DAILY PRN TD PAIN; Start 12/24/18 at 12:00 Assessment/Plan Additional Assessment/Plan Rehab- Left hip fracture in patient status post left total hip arthroplasty and ORIF of periprosthetic fracture. xray with good alignment. Continue activities Acute pain syndrome-continue norco Constipation-results with bowel program Hyperlipidemia. EMANUEL HERNANDEZ MD Dec 24, 2018 12:09
[2018-12-24 15:25] VITALS: BP 120/56; PULSE 73; RESP 16
--- NOTE | 2018-12-24 18:20 | CONS ---
Consult Date/Type/Reason Admit Date/Time Dec 17, 2018 at 18:49 Initial Consult Date Requesting Provider: UNIQUE LUIS MD Date/Time of Note DATE: 12/24/18 TIME: 18:18 Subjective Patient doing well No acute events overnight Pain is well controlled Objective Vitals Vital Signs Date Temp Pulse Resp B/P (MAP) Pulse Ox O2 O2 Flow FiO2 Time Delivery Rate 12/24/18 98.7 73 16 120/56 98 Room Air 15:25 (77) Intake and Output 12/23/18 12/23/18 12/24/18 1414:59 22:59 06:59 IntakeIntake Total 1200 ml 580 ml OutputOutput Total 800 ml 100 ml BalanceBalance 400 ml 480 ml Exam General: Awake, alert, in no acute distress, pleasant and cooperative Heart: regular rhythm Lungs: breathing comfortably, no tachypnea or dyspnea MUSCULOSKELETAL: Left lower extremity: Dressing clean, dry, intact. Sensation intact to light touch in a sural, saphenous, deep peroneal, superficial peroneal, medial and lateral plantar nerve distribution. Motor is intact, patient able to dorsiflex and plantarflex ankle and extend and flex great toe. Dorsalis Pedis pulse +2, Brisk capillary refill. Compartments are soft. Calves non-tender to palpation bilaterally. Results/Medications Result Diagram: 12/22/18 0849 Home Meds Active Scripts Oxycodone Hcl* (IR) (Roxicodone*) 5 Mg Tab, 5-10 MG PO Q4H PRN for .PAIN, #90 TAB Prov:UNIQUE LUIS MD 12/17/18 Gabapentin* (Gabapentin*) 300 Mg Capsule, 300 MG PO QHS for 30 Days, #30 CAP Prov:UNIQUE LUIS MD 12/17/18 Aspirin Delayed Release (Aspirin Delayed Release) 81 Mg Tablet.dr, 81 MG PO BID for 42 Days, #84 Prov:UNIQUE LUIS MD 12/17/18 Reported Medications Simvastatin* (Zocor*) 10 Mg Tablet, 10 MG PO DAILY, #30 TAB 12/16/18 Medications Current Medications Ondansetron HCl (Zofran Inj) 4 mg Q4H PRN IV NAUSEA/VOMITING; Start 12/17/18 at 21:24 Pantoprazole (Protonix Tab) 40 mg DAILY@06 PO Last administered on 12/24/18 06:26; Admin Dose 40 MG; Start 12/17/18 at 21:24 Simethicone (Mylicon) 80 mg TID PRN PO .GAS Last administered on 12/21/18 20:13; Admin Dose 80 MG; Start 12/17/18 at 21:24 Senna/Docusate Sodium (Senokot-S) 2 tab BID PRN PO .CONSTIPATION Last admin istered on 12/21/18 20:12; Admin Dose 2 TAB; Start 12/17/18 at 21:24 Magnesium Hydroxide (Milk Of Mag) 30 ml HS PRN PO .CONSTIPATION Last administered on 12/18/18 12:37; Admin Dose 30 ML; Start 12/17/18 at 21:24 Bisacodyl (Dulcolax Supp) 10 mg DAILY PRN [place] .CONSTIPATION; Start 12/17/18 at 21:24 Sodium Biphosphate/ Sodium Phosphate (Fleet Enema) 133 ml DAILY PRN [place] .CONSTIPATION; Start 12/17/18 at 21:24 Naloxone HCl (Narcan) 0.2 mg Q2M PRN IV .RESP RATE; Start 12/17/18 at 21:24 IV Flush (NS 3 ml) 3 ml per protocol IV ; Start 12/17/18 at 21:24 EZETIMIBE (Zetia) 10 mg DAILY PO Last administered on 12/24/18 08:36; Admin Dose 10 MG; Start 12/17/18 at 21:24 Gabapentin (Neurontin) 300 mg QHS PO Last administered on 12/23/18 20:19; Admin Dose 300 MG; Start 12/17/18 at 23:00 Aspirin (Halfprin) 81 mg BID PO Last administered on 12/24/18 08:36; Admin Dose 81 MG; Start 12/17/18 at 23:00 Ferrous Sulfate (Ferrous Sulfate (Ec)) 325 mg BID PO Last administered on 12/24/18 08:36; Admin Dose 325 MG; Start 12/17/18 at 23:00 Diphenhydramine HCl (Benadryl) 25 mg Q4 PRN PO ITCHING Last administered on 12/19/18 02:13; Admin Dose 25 MG; Start 12/18/18 at 12:30 Lactulose (Enulose) 20 gm DAILY PRN PO CONSTIPATION Last administered on 12/19/18at 11:31; Admin Dose 20 GM; Start 12/19/18 at 11:00 Acetaminophen/ Hydrocodone Bitart ([place] (5/325)) 2 tab Q4H PRN PO SEVERE PAIN LEVEL 7-10 Last administered on 12/24/18at 06:28; Admin Dose 2 TAB; Start 12/22/18 at 10:30 Acetaminophen/ Hydrocodone Bitart ([place] (5/325)) 1 tab Q4H PRN PO MODERATE PAIN LEVEL 4-6 Last administered on 12/23/18at 20:19; Admin Dose 1 TAB; Start 12/22/18 at 10:30 Acetaminophen/ Butalbital/ Caffeine (Fioricet) 2 tab Q6H PRN PO HEADACHE Last administered on 12/24/18at 09:28; Admin Dose 2 TAB; Start 12/22/18 at 14:00 Trazodone HCl (Desyrel) 50 mg HS PRN PO INSOMNIA; Start 12/22/18 at 14:00 Lidocaine (Lidoderm) 1 patch DAILY PRN TD PAIN; Start 12/24/18 at 12:00 Assessment/Plan Hospital Course (Demo Recall) POD#7 s/p primary left KULDEEP. Patient had intraoperative calcar fracture. Secondary to this fracture postoperative weightbearing status will be changed to touch down weightbearing on the left lower extremity. Overall patient doing well -Post op H&H stable -PT/OT. Posterior Hip Precautions -Joints pain control protocol -DVT prophylaxis: SCD's, ASA 81 mg twice daily -Weight bearing status: Touchdown weightbearing left lower extremity. -Post-op XR ordered DC from acute rehab unit when meets criteria and is safe to return home. If patient is still admitted at 14 days postop I will see her in the hospital for follow-up otherwise she is to see me in clinic. She should have follow-up 2 weeks postop and 6 weeks postop. UNIQUE LUIS MD Dec 24, 2018 18:20
--- NOTE | 2018-12-24 19:04 | CONS ---
Assessment/Plan Assessment/Plan Problems: (1) Pure hypercholesterolemia Status: Chronic Comment: Cont. zetia (2) Postoperative anemia due to acute blood loss Status: Acute Comment: Cont. FeSO4 (3) Intraoperative surgical complication involving musculoskeletal system associated with musculoskeletal procedure Status: Acute Comment: Pt. suffered calcar fracture per Dr. Hinojosa. Weight bearing status needs to be changed. (4) Aftercare following left hip joint replacement surgery Status: Acute Comment: Doing well and needs to cont. PT w/ new weight bearing status due to intraoperative calcar fracture. Cont. PT in ARU. Consultation Date/Type/Reason Admit Date/Time Dec 17, 2018 at 18:49 Initial Consult Date 12/15/2018 Type of Consult Medicine Reason for Consultation Medical Management Requesting Provider: UNIQUE HINOJOSA MD Date/Time of Note DATE: 12/24/18 TIME: 19:01 24 HR Interval Summary Constitutional: no complaints, improved Detailed Summary Respiratory: no complaints Cardiovascular: no complaints Gastrointestinal: no complaints Genitourinary: no complaints Musculoskeletal: bone/joint pain (some during PT but controlled) Neurologic: headache (mild, controlled w/ med) Exam/Review of Systems Exam Vitals VS - Last 72 Hours, by Label Date Temp Pulse Resp B/P (MAP) Pulse Ox O2 O2 Flow FiO2 Time Delivery Rate 12/24/18 98.7 73 16 120/56 98 Room Air 15:25 (77) 12/24/18 98.7 76 18 136/58 97 Room Air 08:00 (84) 12/24/18 97.4 72 18 124/56 94 Room Air 03:56 (78) 12/23/18 97.6 74 18 126/59 93 Room Air 20:19 (81) 12/23/18 98.1 95 18 127/66 96 Room Air 14:00 (86) 12/23/18 98.3 63 18 130/63 94 Room Air 07:00 (85) 12/23/18 97.8 73 18 117/65 96 Room Air 02:00 (82) 12/22/18 98.0 77 18 125/61 95 Room Air 19:26 (82) 12/22/18 98.2 70 18 111/57 97 Room Air 14:00 (75) 12/22/18 97.6 74 18 145/65 96 Room Air 07:00 (91) 12/22/18 97.9 18 110/58 96 Room Air 02:02 (75) 12/21/18 98.0 66 18 118/58 95 Room Air 20:00 (78) Vital Signs Date Temp Pulse Resp B/P (MAP) Pulse Ox O2 O2 Flow FiO2 Time Delivery Rate 12/24/18 98.7 73 16 120/56 98 Room Air 15:25 (77) Intake and Output 12/23/18 12/23/18 12/24/18 1414:59 22:59 06:59 IntakeIntake Total 1200 ml 580 ml OutputOutput Total 800 ml 100 ml BalanceBalance 400 ml 480 ml Constitutional: alert, oriented, well developed Respiratory: clear to auscultation, normal air movement Cardiovascular: regular rate and rhythm, nl pulses; No edema, No murmurs/extra sounds, No rub Gastrointestinal: soft, nl liver, spleen, non-tender, bowel sounds; No mass, No rebound or guarding Musculoskeletal: nl extremities to inspection Extremities: normal pulses; No cyanosis, No clubbing, No edema 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: BROTHEL KEEPER 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, nl mental status, nl speech, nl strength Results Result Diagram: 12/22/18 0849 Medications Medication Current Medications Ondansetron HCl (Zofran Inj) 4 mg Q4H PRN IV NAUSEA/VOMITING; Start 12/17/18 at 21:24 Pantoprazole (Protonix Tab) 40 mg DAILY@06 PO Last administered on 12/24/18at 06:26; Admin Dose 40 MG; Start 12/17/18 at 21:24 Simethicone (Mylicon) 80 mg TID PRN PO .GAS Last administered on 12/21/18at 20:13; Admin Dose 80 MG; Start 12/17/18 at 21:24 Senna/Docusate Sodium (Senokot-S) 2 tab BID PRN PO .CONSTIPATION Last administered on 12/21/18at 20:12; Admin Dose 2 TAB; Start 12/17/18 at 21:24 Magnesium Hydroxide (Milk Of Mag) 30 ml HS PRN PO .CONSTIPATION Last administered on 12/18/18at 12:37; Admin Dose 30 ML; Start 12/17/18 at 21:24 Bisacodyl (Dulcolax Supp) 10 mg DAILY PRN [place] .CONSTIPATION; Start 12/17/18 at 21:24 Sodium Biphosphate/ Sodium Phosphate (Fleet Enema) 133 ml DAILY PRN [place] .CONSTIPATION; Start 12/17/18 at 21:24 Naloxone HCl (Narcan) 0.2 mg Q2M PRN IV .RESP RATE; Start 12/17/18 at 21:24 IV Flush (NS 3 ml) 3 ml per protocol IV ; Start 12/17/18 at 21:24 EZETIMIBE (Zetia) 10 mg DAILY PO Last administered on 12/24/18 08:36; Admin Dose 10 MG; Start 12/17/18 at 21:24 Gabapentin (Neurontin) 300 mg QHS PO Last administered on 12/23/18 20:19; Admin Dose 300 MG; Start 12/17/18 at 23:00 Aspirin (Halfprin) 81 mg BID PO Last administered on 12/24/18 08:36; Admin Dose 81 MG; Start 12/17/18 at 23:00 Ferrous Sulfate (Ferrous Sulfate (Ec)) 325 mg BID PO Last administered on 12/24/18 08:36; Admin Dose 325 MG; Start 12/17/18 at 23:00 Diphenhydramine HCl (Benadryl) 25 mg Q4 PRN PO ITCHING Last administered on 12/19/18 02:13; Admin Dose 25 MG; Start 12/18/18 at 12:30 Lactulose (Enulose) 20 gm DAILY PRN PO CONSTIPATION Last administered on 12/19/18 11:31; Admin Dose 20 GM; Start 12/19/18 at 11:00 Acetaminophen/ Hydrocodone Bitart ([place] (5/325)) 2 tab Q4H PRN PO SEVERE PAIN LEVEL 7-10 Last administered on 12/24/18 06:28; Admin Dose 2 TAB; Start 12/22/18 at 10:30 Acetaminophen/ Hydrocodone Bitart ([place] (5/325)) 1 tab Q4H PRN PO MODERATE PAIN LEVEL 4-6 Last administered on 12/23/18 20:19; Admin Dose 1 TAB; Start 12/22/18 at 10:30 Acetaminophen/ Butalbital/ Caffeine (Fioricet) 2 tab Q6H PRN PO HEADACHE Last administered on 12/24/18 09:28; Admin Dose 2 TAB; Start 12/22/18 at 14:00 Trazodone HCl (Desyrel) 50 mg HS PRN PO INSOMNIA; Start 12/22/18 at 14:00 Lidocaine (Lidoderm) 1 patch DAILY PRN TD PAIN; Start 12/24/18 at 12:00 CASH GONZÁLES MD Dec 24, 2018 19:04
[2018-12-24 19:08] VITALS: BP 134/69; PULSE 72; RESP 18
[2018-12-24] MEDS: GABAPENTIN 300 MG CAP PO SCH (21:56)
[2018-12-25 02:00] VITALS: BP 127/64; PULSE 68; RESP 18
[2018-12-25] MEDS: PANTOPRAZOLE (EC) 40 MG TAB PO SCH (05:12)
[2018-12-25] MEDS: HYDROCODONE/APAP (5/325) TAB PO PRN ×3 (05:13→20:29)
[2018-12-25 07:00] VITALS: BP 119/61; PULSE 72; RESP 18
[2018-12-25] MEDS: ACET/BUTAL/CAFF TAB PO PRN (08:01)
[2018-12-25] MEDS: EZETIMIBE 10 MG TAB PO SCH (08:27)
[2018-12-25] MEDS: FERROUS SULFATE (EC) 325 MG TAB PO SCH ×2 (08:27→21:46)
[2018-12-25] MEDS: ASPIRIN (EC) 81 MG TAB PO SCH ×2 (08:28→21:46)
--- NOTE | 2018-12-25 12:15 | PN ---
Date/Time of Note Date/Time of Note DATE: 12/25/18 TIME: 12:15 Subjective Overall improved Objective Vital Signs Date Temp Pulse Resp B/P (MAP) Pulse Ox O2 O2 Flow FiO2 Time Delivery Rate 12/25/18 98.2 72 18 119/61 96 Room Air 07:00 (80) Intake and Output 12/24/18 12/24/18 12/25/18 1515:00 23:00 07:00 IntakeIntake Total 500 ml 1050 ml OutputOutput Total 600 ml 500 ml BalanceBalance -100 ml 550 ml Exam pulm-cta min/mod transfer min/mod ambulation 40 feet Results/Medications Result Diagram: 12/22/18 0849 Medications Current Medications Ondansetron HCl (Zofran Inj) 4 mg Q4H PRN IV NAUSEA/VOMITING; Start 12/17/18 at 21:24 Pantoprazole (Protonix Tab) 40 mg DAILY@06 PO Last administered on 12/25/18at 05:12; Admin Dose 40 MG; Start 12/17/18 at 21:24 Simethicone (Mylicon) 80 mg TID PRN PO .GAS Last administered on 12/21/18at 20:13; Admin Dose 80 MG; Start 12/17/18 at 21:24 Senna/Docusate Sodium (Senokot-S) 2 tab BID PRN PO .CONSTIPATION Last administered on 12/21/18at 20:12; Admin Dose 2 TAB; Start 12/17/18 at 21:24 Magnesium Hydroxide (Milk Of Mag) 30 ml HS PRN PO .CONSTIPATION Last administered on 12/18/18at 12:37; Admin Dose 30 ML; Start 12/17/18 at 21:24 Bisacodyl (Dulcolax Supp) 10 mg DAILY PRN [place] .CONSTIPATION; Start 12/17/18 at 21:24 Sodium Biphosphate/ Sodium Phosphate (Fleet Enema) 133 ml DAILY PRN [place] .CONSTIPATION; Start 12/17/18 at 21:24 Naloxone HCl (Narcan) 0.2 mg Q2M PRN IV .RESP RATE; Start 12/17/18 at 21:24 IV Flush (NS 3 ml) 3 ml per protocol IV ; Start 12/17/18 at 21:24 EZETIMIBE (Zetia) 10 mg DAILY PO Last administered on 12/25/18at 08:27; Admin Dose 10 MG; Start 12/17/18 at 21:24 Gabapentin (Neurontin) 300 mg QHS PO Last administered on 12/24/18 21:56; Admin Dose 300 MG; Start 12/17/18 at 23:00 Aspirin (Halfprin) 81 mg BID PO Last administered on 12/25/18 08:28; Admin Dose 81 MG; Start 12/17/18 at 23:00 Ferrous Sulfate (Ferrous Sulfate (Ec)) 325 mg BID PO Last administered on 12/25/18 08:27; Admin Dose 325 MG; Start 12/17/18 at 23:00 Diphenhydramine HCl (Benadryl) 25 mg Q4 PRN PO ITCHING Last administered on 12/19/18 02:13; Admin Dose 25 MG; Start 12/18/18 at 12:30 Lactulose (Enulose) 20 gm DAILY PRN PO CONSTIPATION Last administered on 12/19/18 11:31; Admin Dose 20 GM; Start 12/19/18 at 11:00 Acetaminophen/ Hydrocodone Bitart ([place] (5/325)) 2 tab Q4H PRN PO SEVERE PAIN LEVEL 7-10 Last administered on 12/25/18 05:13; Admin Dose 2 TAB; Start 12/22/18 at 10:30 Acetaminophen/ Hydrocodone Bitart ([place] (5/325)) 1 tab Q4H PRN PO MODERATE PAIN LEVEL 4-6 Last administered on 12/23/18 20:19; Admin Dose 1 TAB; Start 12/22/18 at 10:30 Acetaminophen/ Butalbital/ Caffeine (Fioricet) 2 tab Q6H PRN PO HEADACHE Last administered on 12/25/18 08:01; Admin Dose 2 TAB; Start 12/22/18 at 14:00 Trazodone HCl (Desyrel) 50 mg HS PRN PO INSOMNIA; Start 12/22/18 at 14:00 Lidocaine (Lidoderm) 1 patch DAILY PRN TD PAIN; Start 12/24/18 at 12:00 Assessment/Plan Additional Assessment/Plan Rehab- Left hip fracture in patient status post left total hip arthroplasty and ORIF of periprosthetic fracture. Better today with therapies, Continue activities Acute pain syndrome-continue norco Constipation-results with bowel program Hyperlipidemia. EMANUEL HERNANDEZ MD Dec 25, 2018 12:15
[2018-12-25 14:00] VITALS: BP 114/67; PULSE 99; RESP 18
--- NOTE | 2018-12-25 18:03 | CONS ---
Assessment/Plan Assessment/Plan Problems: (1) Pure hypercholesterolemia Status: Chronic Comment: Cont. zetia (2) Postoperative anemia due to acute blood loss Status: Acute Comment: Cont. FeSO4. Recheck CBC (3) Insomnia due to medical condition Status: Acute Comment: Pt. refuses med for insomnia (4) Aftercare following left hip joint replacement surgery Status: Acute Comment: Doing well. Cont. rehab in ARU Consultation Date/Type/Reason Admit Date/Time Dec 17, 2018 at 18:49 Initial Consult Date 12/15/2018 Type of Consult Medicine Reason for Consultation Medicine Requesting Provider: UNIQUE LUIS MD Date/Time of Note DATE: 12/25/18 TIME: 18:02 24 HR Interval Summary Constitutional: no complaints, improved (more energy) Detailed Summary Respiratory: no complaints Cardiovascular: no complaints Gastrointestinal: no complaints Genitourinary: no complaints Musculoskeletal: bone/joint pain (minimal, controlled) Neurologic: no complaints Exam/Review of Systems Exam Vitals VS - Last 72 Hours, by Label Date Temp Pulse Resp B/P (MAP) Pulse Ox O2 O2 Flow FiO2 Time Delivery Rate 12/25/18 98.0 99 18 114/67 97 Room Air 14:00 (83) 12/25/18 98.2 72 18 119/61 96 Room Air 07:00 (80) 12/25/18 97.9 68 18 127/64 97 Room Air 02:00 (85) 12/24/18 98.2 72 18 134/69 97 Room Air 19:08 (90) 12/24/18 98.7 73 16 120/56 98 Room Air 15:25 (77) 12/24/18 98.7 76 18 136/58 97 Room Air 08:00 (84) 12/24/18 97.4 72 18 124/56 94 Room Air 03:56 (78) 12/23/18 97.6 74 18 126/59 93 Room Air 20:19 (81) 12/23/18 98.1 95 18 127/66 96 Room Air 14:00 (86) 12/23/18 98.3 63 18 130/63 94 Room Air 07:00 (85) 12/23/18 97.8 73 18 117/65 96 Room Air 02:00 (82) 12/22/18 98.0 77 18 125/61 95 Room Air 19:26 (82) Vital Signs Date Temp Pulse Resp B/P (MAP) Pulse Ox O2 O2 Flow FiO2 Time Delivery Rate 12/25/18 98.0 99 18 114/67 97 Room Air 14:00 (83) Intake and Output 12/24/18 12/24/18 12/25/18 1515:00 23:00 07:00 IntakeIntake Total 500 ml 1050 ml OutputOutput Total 600 ml 500 ml BalanceBalance -100 ml 550 ml Constitutional: alert, oriented, well developed Psych: no complaints, nl mood/affect Respiratory: clear to auscultation, normal air movement Cardiovascular: regular rate and rhythm, nl pulses; No edema, No murmurs/extra sounds, No rub Gastrointestinal: soft, nl liver, spleen, non-tender, bowel sounds; No mass, No rebound or guarding Musculoskeletal: nl extremities to inspection Extremities: normal pulses; No cyanosis, No clubbing, No edema 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: COLON THERAPIST 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, nl mental status, nl speech, nl strength Results Result Diagram: 12/22/18 0849 Medications Medication Current Medications Ondansetron HCl (Zofran Inj) 4 mg Q4H PRN IV NAUSEA/VOMITING; Start 12/17/18 at 21:24 Pantoprazole (Protonix Tab) 40 mg DAILY@06 PO Last administered on 12/25/18at 05:12; Admin Dose 40 MG; Start 12/17/18 at 21:24 Simethicone (Mylicon) 80 mg TID PRN PO .GAS Last administered on 12/21/18at 20:13; Admin Dose 80 MG; Start 12/17/18 at 21:24 Senna/Docusate Sodium (Senokot-S) 2 tab BID PRN PO .CONSTIPATION Last administered on 12/21/18at 20:12; Admin Dose 2 TAB; Start 12/17/18 at 21:24 Magnesium Hydroxide (Milk Of Mag) 30 ml HS PRN PO .CONSTIPATION Last admini stered on 12/18/18at 12:37; Admin Dose 30 ML; Start 12/17/18 at 21:24 Bisacodyl (Dulcolax Supp) 10 mg DAILY PRN [place] .CONSTIPATION; Start 12/17/18 at 21:24 Sodium Biphosphate/ Sodium Phosphate (Fleet Enema) 133 ml DAILY PRN [place] .CONSTIPATION; Start 12/17/18 at 21:24 Naloxone HCl (Narcan) 0.2 mg Q2M PRN IV .RESP RATE; Start 12/17/18 at 21:24 IV Flush (NS 3 ml) 3 ml per protocol IV ; Start 12/17/18 at 21:24 EZETIMIBE (Zetia) 10 mg DAILY PO Last administered on 12/25/18 08:27; Admin Dose 10 MG; Start 12/17/18 at 21:24 Gabapentin (Neurontin) 300 mg QHS PO Last administered on 12/24/18 21:56; Adm in Dose 300 MG; Start 12/17/18 at 23:00 Aspirin (Halfprin) 81 mg BID PO Last administered on 12/25/18 08:28; Admin Dose 81 MG; Start 12/17/18 at 23:00 Ferrous Sulfate (Ferrous Sulfate (Ec)) 325 mg BID PO Last administered on 12/25/18 08:27; Admin Dose 325 MG; Start 12/17/18 at 23:00 Diphenhydramine HCl (Benadryl) 25 mg Q4 PRN PO ITCHING Last administered on 12/19/18 02:13; Admin Dose 25 MG; Start 12/18/18 at 12:30 Lactulose (Enulose) 20 gm DAILY PRN PO CONSTIPATION Last administered on 11:31; Admin Dose 20 GM; Start 12/19/18 at 11:00 Acetaminophen/ Hydrocodone Bitart ([place] (5/325)) 2 tab Q4H PRN PO SEVERE PAIN LEVEL 7-10 Last administered on 12/25/18 12:44; Admin Dose 2 TAB; Start 12/22/18 at 10:30 Acetaminophen/ Hydrocodone Bitart ([place] (5/325)) 1 tab Q4H PRN PO MODERATE PAIN LEVEL 4-6 Last administered on 12/23/18 20:19; Admin Dose 1 TAB; Start 12/22/18 at 10:30 Acetaminophen/ Butalbital/ Caffeine (Fioricet) 2 tab Q6H PRN PO HEADACHE Last administered on 12/25/18 08:01; Admin Dose 2 TAB; Start 12/22/18 at 14:00 Trazodone HCl (Desyrel) 50 mg HS PRN PO INSOMNIA; Start 12/22/18 at 14:00 Lidocaine (Lidoderm) 1 patch DAILY PRN TD PAIN; Start 12/24/18 at 12:00 CASH GONZÁLES MD Dec 25, 2018 18:03
[2018-12-25 19:20] VITALS: BP 132/67; PULSE 81; RESP 18
[2018-12-25] MEDS: GABAPENTIN 300 MG CAP PO SCH (21:46)
[2018-12-25] MEDS: LACTULOSE 30ML CUP PO PRN (21:49)
[2018-12-26 02:00] VITALS: BP 126/63; PULSE 75; RESP 18
[2018-12-26] MEDS: PANTOPRAZOLE (EC) 40 MG TAB PO SCH (06:37)
[2018-12-26] MEDS: HYDROCODONE/APAP (5/325) TAB PO PRN ×2 (06:38→17:22)
[2018-12-26 07:30] VITALS: BP 115/61; PULSE 65; RESP 18
[2018-12-26] MEDS: EZETIMIBE 10 MG TAB PO SCH (08:36)
[2018-12-26] MEDS: LIDOCAINE 5% PATCH TD PRN (08:36)
[2018-12-26] MEDS: FERROUS SULFATE (EC) 325 MG TAB PO SCH ×2 (08:36→20:22)
[2018-12-26] MEDS: ASPIRIN (EC) 81 MG TAB PO SCH ×2 (08:36→20:22)
[2018-12-26] MEDS: ACET/BUTAL/CAFF TAB PO PRN (11:32)
[2018-12-26 14:00] VITALS: BP 100/55; PULSE 81; RESP 18
--- NOTE | 2018-12-26 14:31 | PN ---
Date/Time of Note Date/Time of Note DATE: 12/26/18 TIME: 14:31 Subjective No new complaints Objective Vital Signs Date Temp Pulse Resp B/P (MAP) Pulse Ox O2 O2 Flow FiO2 Time Delivery Rate 12/26/18 98.4 65 18 115/61 92 Room Air 07:30 (79) Intake and Output 12/25/18 12/25/18 12/26/18 1515:00 23:00 07:00 IntakeIntake Total 800 ml 1040 ml OutputOutput Total 600 ml 350 ml BalanceBalance 200 ml 690 ml Exam cga transfer cga ambulation pulm-cta Results/Medications Result Diagram: 12/26/1862412/26/18624 Results 24 hrs Laboratory Tests Test 12/26/18 06:25 White Blood Count 7.7 Red Blood Count 3.18 L Hemoglobin 9.7 L Hematocrit 29.6 L Mean Corpuscular Volume 93.1 Mean Corpuscular Hemoglobin 30.5 Mean Corpuscular Hemoglobin Concent 32.8 Red Cell Distribution Width 13.4 Platelet Count 300 # Mean Platelet Volume 10.2 Immature Granulocytes % 3.800 H Neutrophils % 56.8 Lymphocytes % 25.6 Monocytes % 8.7 Eosinophils % 4.4 Basophils % 0.7 Nucleated Red Blood Cells % 0.0 Immature Granulocytes # 0.290 H Neutrophils # 4.4 Lymphocytes # 2.0 Monocytes # 0.7 Eosinophils # 0.3 Basophils # 0.1 Nucleated Red Blood Cells # 0.0 Sodium Level 140 Potassium Level 4.2 Chloride Level 104 Carbon Dioxide Level 26 Anion Gap 10 Blood Urea Nitrogen 20 Creatinine 0.46 Est Glomerular Filtrat Rate mL/min Glucose Level 88 Calcium Level 9.0 Total Bilirubin 0.4 Direct Bilirubin 0.00 Indirect Bilirubin 0.4 Aspartate Amino Transf (AST/SGOT) 42 Alanine Aminotransferase (ALT/SGPT) 60 Alkaline Phosphatase 74 Total Protein 6.1 Albumin 3.5 Globulin 2.60 Albumin/Globulin Ratio 1.34 Medications Current Medications Ondansetron HCl (Zofran Inj) 4 mg Q4H PRN IV NAUSEA/VOMITING; Start 12/17/18 at 21:24 Pantoprazole (Protonix Tab) 40 mg DAILY@06 PO Last administered on 12/26/18at 06:37; Admin Dose 40 MG; Start 12/17/18 at 21:24 Simethicone (Mylicon) 80 mg TID PRN PO .GAS Last administered on 12/21/18 20:13; Admin Dose 80 MG; Start 12/17/18 at 21:24 Senna/Docusate Sodium (Senokot-S) 2 tab BID PRN PO .CONSTIPATION Last administered on 12/21/18 20:12; Admin Dose 2 TAB; Start 12/17/18 at 21:24 Magnesium Hydroxide (Milk Of Mag) 30 ml HS PRN PO .CONSTIPATION Last administered on 12/18/18 12:37; Admin Dose 30 ML; Start 12/17/18 at 21:24 Bisacodyl (Dulcolax Supp) 10 mg DAILY PRN [place] .CONSTIPATION; Start 12/17/18 at 21:24 Sodium Biphosphate/ Sodium Phosphate (Fleet Enema) 133 ml DAILY PRN [place] .CONSTIPATION; Start 12/17/18 at 21:24 Naloxone HCl (Narcan) 0.2 mg Q2M PRN IV .RESP RATE; Start 12/17/18 at 21:24 IV Flush (NS 3 ml) 3 ml per protocol IV ; Start 12/17/18 at 21:24 EZETIMIBE (Zetia) 10 mg DAILY PO Last administered on 12/26/18 08:36; Admin Dose 10 MG; Start 12/17/18 at 21:24 Gabapentin (Neurontin) 300 mg QHS PO Last administered on 12/25/18 21:46; Admin Dose 300 MG; Start 12/17/18 at 23:00 Aspirin (Halfprin) 81 mg BID PO Last administered on 12/26/18 08:36; Admin Dose 81 MG; Start 12/17/18 at 23:00 Ferrous Sulfate (Ferrous Sulfate (Ec)) 325 mg BID PO Last administered on 12/26/18 08:36; Admin Dose 325 MG; Start 12/17/18 at 23:00 Diphenhydramine HCl (Benadryl) 25 mg Q4 PRN PO ITCHING Last administered on 12/19/18 02:13; Admin Dose 25 MG; Start 12/18/18 at 12:30 Lactulose (Enulose) 20 gm DAILY PRN PO CONSTIPATION Last administered on 12/25/18 21:49; Admin Dose 20 GM; Start 12/19/18 at 11:00 Acetaminophen/ Hydrocodone Bitart ([place] (5/325)) 2 tab Q4H PRN PO SEVERE PAIN LEVEL 7-10 Last administered on 12/26/18at 06:38; Admin Dose 2 TAB; Start 12/22/18 at 10:30 Acetaminophen/ Hydrocodone Bitart ([place] (5/325)) 1 tab Q4H PRN PO MODERATE PAIN LEVEL 4-6 Last administered on 12/23/18at 20:19; Admin Dose 1 TAB; Start 12/22/18 at 10:30 Acetaminophen/ Butalbital/ Caffeine (Fioricet) 2 tab Q6H PRN PO HEADACHE Last administered on 12/26/18at 11:32; Admin Dose 2 TAB; Start 12/22/18 at 14:00 Trazodone HCl (Desyrel) 50 mg HS PRN PO INSOMNIA; Start 12/22/18 at 14:00 Lidocaine (Lidoderm) 1 patch DAILY PRN TD PAIN Last administered on 12/26/18at 0 8:36; Admin Dose 1 PATCH; Start 12/24/18 at 12:00 Assessment/Plan Additional Assessment/Plan Rehab- Left hip fracture in patient status post left total hip arthroplasty and ORIF of periprosthetic fracture. Continue activities Acute pain syndrome-continue norco Hyperlipidemia. EMANUEL HERNANDEZ MD Dec 26, 2018 14:31
--- NOTE | 2018-12-26 17:43 | CONS ---
Assessment/Plan Assessment/Plan Problems: (1) Pure hypercholesterolemia Status: Chronic Comment: Cont. zetia daily (2) Postoperative anemia due to acute blood loss Status: Acute Comment: Hgb stable. Not obviously improved. Cont. FeSO4. (3) Insomnia due to medical condition Status: Acute Comment: Pt. fatigued today. Likely due to combination of fioricet and [place] (4) Headache Status: Resolved Comment: Cont. Fioricet prn but likely contributing to fatigue (5) Aftercare following left hip joint replacement surgery Status: Acute Comment: Pt. doing relatively well. Cont. PT in ARU. Plan d/c next week. Consultation Date/Type/Reason Admit Date/Time Dec 17, 2018 at 18:49 Initial Consult Date 12/15/2018 Type of Consult Medicine Reason for Consultation Medical management Requesting Provider: UNIQUE LUIS MD Date/Time of Note DATE: 12/26/18 TIME: 17:39 24 HR Interval Summary Constitutional: no complaints, improved (but fatigued today) Detailed Summary Respiratory: no complaints Cardiovascular: no complaints Gastrointestinal: no complaints Genitourinary: no complaints Musculoskeletal: no complaints Neurologic: no complaints Exam/Review of Systems Exam Vitals VS - Last 72 Hours, by Label Date Temp Pulse Resp B/P (MAP) Pulse Ox O2 O2 Flow FiO2 Time Delivery Rate 12/26/18 98.8 81 18 100/55 95 Room Air 14:00 (70) 12/26/18 98.4 65 18 115/61 92 Room Air 07:30 (79) 12/26/18 97.8 75 18 126/63 97 Room Air 02:00 (84) 12/25/18 97.8 81 18 132/67 96 Room Air 19:20 (88) 12/25/18 98.0 99 18 114/67 97 Room Air 14:00 (83) 12/25/18 98.2 72 18 119/61 96 Room Air 07:00 (80) 12/25/18 97.9 68 18 127/64 97 Room Air 02:00 (85) 12/24/18 98.2 72 18 134/69 97 Room Air 19:08 (90) 12/24/18 98.7 73 16 120/56 98 Room Air 15:25 (77) 12/24/18 98.7 76 18 136/58 97 Room Air 08:00 (84) 12/24/18 97.4 72 18 124/56 94 Room Air 03:56 (78) 12/23/18 97.6 74 18 126/59 93 Room Air 20:19 (81) Vital Signs Date Temp Pulse Resp B/P (MAP) Pulse Ox O2 O2 Flow FiO2 Time Delivery Rate 12/26/18 98.8 81 18 100/55 95 Room Air 14:00 (70) Intake and Output 12/25/18 12/25/18 12/26/18 1515:00 23:00 07:00 IntakeIntake Total 800 ml 1040 ml OutputOutput Total 600 ml 350 ml BalanceBalance 200 ml 690 ml Constitutional: alert, oriented, well developed Psych: no complaints, nl mood/affect Respiratory: clear to auscultation, normal air movement Cardiovascular: regular rate and rhythm, nl pulses; No edema, No murmurs/extra sounds, No rub Gastrointestinal: soft, nl liver, spleen, non-tender, bowel sounds; No mass, No rebound or guarding Musculoskeletal: nl extremities to inspection Extremities: normal pulses; No cyanosis, No clubbing, No edema 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: GLAZE CARRIER 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, nl mental status, nl speech, nl strength Results Result Diagram: 12/26/18 0625 12/26/18 0625 Results 24hrs Laboratory Tests Test 12/26/18 06:25 White Blood Count 7.7 Red Blood Count 3.18 L Hemoglobin 9.7 L Hematocrit 29.6 L Mean Corpuscular Volume 93.1 Mean Corpuscular Hemoglobin 30.5 Mean Corpuscular Hemoglobin Concent 32.8 Red Cell Distribution Width 13.4 Platelet Count 300 # Mean Platelet Volume 10.2 Immature Granulocytes % 3.800 H Neutrophils % 56.8 Lymphocytes % 25.6 Monocytes % 8.7 Eosinophils % 4.4 Basophils % 0.7 Nucleated Red Blood Cells % 0.0 Immature Granulocytes # 0.290 H Neutrophils # 4.4 Lymphocytes # 2.0 Monocytes # 0.7 Eosinophils # 0.3 Basophils # 0.1 Nucleated Red Blood Cells # 0.0 Sodium Level 140 Potassium Level 4.2 Chloride Level 104 Carbon Dioxide Level 26 Anion Gap 10 Blood Urea Nitrogen 20 Creatinine 0.46 Est Glomerular Filtrat Rate mL/min Glucose Level 88 Calcium Level 9.0 Total Bilirubin 0.4 Direct Bilirubin 0.00 Indirect Bilirubin 0.4 Aspartate Amino Transf (AST/SGOT) 42 Alanine Aminotransferase (ALT/SGPT) 60 Alkaline Phosphatase 74 Total Protein 6.1 Albumin 3.5 Globulin 2.60 Albumin/Globulin Ratio 1.34 Medications Medication Current Medications Ondansetron HCl (Zofran Inj) 4 mg Q4H PRN IV NAUSEA/VOMITING; Start 12/17/18 at 21:24 Pantoprazole (Protonix Tab) 40 mg DAILY@06 PO Last administered on 12/26/18 06:37; Admin Dose 40 MG; Start 12/17/18 at 21:24 Simethicone (Mylicon) 80 mg TID PRN PO .GAS Last administered on 12/21/18 20:13; Admin Dose 80 MG; Start 12/17/18 at 21:24 Senna/Docusate Sodium (Senokot-S) 2 tab BID PRN PO .CONSTIPATION Last administered on 12/21/18 20:12; Admin Dose 2 TAB; Start 12/17/18 at 21:24 Magnesium Hydroxide (Milk Of Mag) 30 ml HS PRN PO .CONSTIPATION Last administered on 12/18/18 12:37; Admin Dose 30 ML; Start 12/17/18 at 21:24 Bisacodyl (Dulcolax Supp) 10 mg DAILY PRN [place] .CONSTIPATION; Start 12/17/18 at 21:24 Sodium Biphosphate/ Sodium Phosphate (Fleet Enema) 133 ml DAILY PRN [place] .CONSTIPATION; Start 12/17/18 at 21:24 Naloxone HCl (Narcan) 0.2 mg Q2M PRN IV .RESP RATE; Start 12/17/18 at 21:24 IV Flush (NS 3 ml) 3 ml per protocol IV ; Start 12/17/18 at 21:24 EZETIMIBE (Zetia) 10 mg DAILY PO Last administered on 12/26/18 08:36; Admin Dose 10 MG; Start 12/17/18 at 21:24 Gabapentin (Neurontin) 300 mg QHS PO Last administered on 12/25/18 21:46; Admin Dose 300 MG; Start 12/17/18 at 23:00 Aspirin (Halfprin) 81 mg BID PO Last administered on 12/26/18 08:36; Admin Dose 81 MG; Start 12/17/18 at 23:00 Ferrous Sulfate (Ferrous Sulfate (Ec)) 325 mg BID PO Last administered on 12/26/18 08:36; Admin Dose 325 MG; Start 12/17/18 at 23:00 Diphenhydramine HCl (Benadryl) 25 mg Q4 PRN PO ITCHING Last administered on 12/19/18 02:13; Admin Dose 25 MG; Start 12/18/18 at 12:30 Lactulose (Enulose) 20 gm DAILY PRN PO CONSTIPATION Last administered on 12/25/18 21:49; Admin Dose 20 GM; Start 12/19/18 at 11:00 Acetaminophen/ Hydrocodone Bitart ([place] (5/325)) 2 tab Q4H PRN PO SEVERE PAIN LEVEL 7-10 Last administered on 12/26/18 17:22; Admin Dose 2 TAB; Start 12/22/18 at 10:30 Acetaminophen/ Hydrocodone Bitart ([place] (5/325)) 1 tab Q4H PRN PO MODERATE PAIN LEVEL 4-6 Last administered on 12/23/18 20:19; Admin Dose 1 TAB; Start 12/22/18 at 10:30 Acetaminophen/ Butalbital/ Caffeine (Fioricet) 2 tab Q6H PRN PO HEADACHE Last administered on 12/26/18 11:32; Admin Dose 2 TAB; Start 12/22/18 at 14:00 Trazodone HCl (Desyrel) 50 mg HS PRN PO INSOMNIA; Start 12/22/18 at 14:00 Lidocaine (Lidoderm) 1 patch DAILY PRN TD PAIN Last administered on 12/26/18 08:36; Admin Dose 1 PATCH; Start 12/24/18 at 12:00 CASH GONZÁLES MD Dec 26, 2018 17:43
[2018-12-26] MEDS: GABAPENTIN 300 MG CAP PO SCH (20:22)
--- NOTE | 2018-12-26 20:23 | CONS ---
DATE OF ADMISSION: 12/17/2018 DATE OF CONSULTATION: 12/26/2018 TYPE OF CONSULTATION: Psychological. REFERRING PHYSICIAN: Emanuel Anderson MD CONSULTING PSYCHOLOGIST: Ruben Irizarry, PhD REASON FOR CONSULTATION: This consultation was requested by Dr. Rachael Anderson in order to evaluate t he cognitive and emotional functioning of this patient related to her present medical condition. HISTORY OF PRESENT ILLNESS: The patient is a 73-year-old female. The patient was noting severe incr eased hip pain and despite conservative measures nothing helped and then she underwent a left total h ip arthroplasty. The patient did have a fracture while this was happening and then had a further wor k done on her hip. The patient was then cleared medically and sent to the acute rehabilitation unit for acute multidisciplinary rehabilitation. The patient is frustrated by what happened to her, but f eels good that they have taken care of it. The patient is motivated to get better and does want to r eturn to her previous level of functioning. FAMILY AND SOCIAL HISTORY: The patient lives at home with her and hopes to return there afte r discharge. The patient's was present during the consultation with the patient's permission . MEDICATIONS: The patient is on: 1. Trazodone 50 mg at bedtime. 2. Neurontin 300 mg at bedtime. SUBSTANCE USE: The patient reports that she does not smoke. The patient reports that she does drink a couple glasses of wine every other night or so. MENTAL STATUS EXAMINATION: APPEARANCE: The patient was seen in bed. She appears to be of average height and weight. The patie nt is right-handed. BEHAVIOR: The patient was cooperative during the consultation. The patient did attempt to answer al l questions presented to him by the interviewer. PERCEPTION: The patient reports no hallucinations or delusions. The patient was alert to person, pl brenda, situation and time. MEMORY AND COGNITION: The patient's memory and cognition appear to be intact. The patient was able to remember recent and remote events. The patient was able to remember the name of the hospital. Th e patient did know the month and the year. The patient was able to say who the President of the [place] is, the governor of the [facility], and the mayor of the [facility]. The patient was ab le to spell "world" backwards on her third try. The patient was able to do 1 serial 7 subtraction fr om 100, but then made an error and could not self-correct. Overall, the patient's cognitions appear to be basically intact. INTELLIGENCE: Intelligence appears to fall in the average range. INSIGHT: Good. JUDGMENT: Good. THOUGHT CONTENT: The patient is concerned about her present medical condition. The patient is frust rated about the fact that this all happened. The patient is motivated to get better and does want to return to her previous level of functioning. DISCUSSION: The patient can likely benefit from some cognitive/behavioral psychotherapy while she is on the unit. This psychotherapy would deal with her underlying level of frustration and depression regarding her medical problems. 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 Thank you very much, Dr. Rachael Anderson, for referring this individual. If I can be of any further as sistance, please do not hesitate to call if you have additional questions. Dictated By: RUBEN IRIZARRY PHD JOSH/FATOUMATA Conf#: [id number] DID#: [id number] CC: EMANUEL ANDERSON MD;*EndCC*
[2018-12-26 20:26] VITALS: BP 119/57; PULSE 83; RESP 18
[2018-12-27] MEDS: HYDROCODONE/APAP (5/325) TAB PO PRN ×3 (00:06→20:24)
[2018-12-27] MEDS: ACET/BUTAL/CAFF TAB PO PRN (00:54)
[2018-12-27 02:00] VITALS: BP 119/48; PULSE 80; RESP 16
[2018-12-27] MEDS: PANTOPRAZOLE (EC) 40 MG TAB PO SCH (06:38)
[2018-12-27] MEDS: FERROUS SULFATE (EC) 325 MG TAB PO SCH ×2 (09:36→20:19)
[2018-12-27] MEDS: EZETIMIBE 10 MG TAB PO SCH (09:36)
[2018-12-27] MEDS: ASPIRIN (EC) 81 MG TAB PO SCH ×2 (09:36→20:19)
[2018-12-27] MEDS: SENNA/DOCUSATE NA (8.6MG/50MG) TAB PO PRN ×2 (09:39→20:23)
[2018-12-27 10:01] VITALS: BP 101/53; PULSE 72; RESP 18
--- NOTE | 2018-12-27 10:26 | PN ---
Date/Time of Note Date/Time of Note DATE: 12/27/18 TIME: 10:26 Subjective In good spirits. 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 Objective Vital Signs Date Temp Pulse Resp B/P (MAP) Pulse Ox O2 O2 Flow FiO2 Time Delivery Rate 12/27/18 98.6 72 18 101/53 94 Room Air 10:01 (69) Intake and Output 12/26/18 12/26/18 12/27/18 1515:00 23:00 07:00 IntakeIntake Total 500 ml 200 ml BalanceBalance 500 ml 200 ml Exam cga transfer cga ambulation pulm-cta Results/Medications Result Diagram: 12/26/1862412/26/18624 Medications Current Medications Ondansetron HCl (Zofran Inj) 4 mg Q4H PRN IV NAUSEA/VOMITING; Start 12/17/18 at 21:24 Pantoprazole (Protonix Tab) 40 mg DAILY@06 PO Last administered on 12/27/18at 06:38; Admin Dose 40 MG; Start 12/17/18 at 21:24 Simethicone (Mylicon) 80 mg TID PRN PO .GAS Last administered on 12/21/18at 20:13; Admin Dose 80 MG; Start 12/17/18 at 21:24 Senna/Docusate Sodium (Senokot-S) 2 tab BID PRN PO .CONSTIPATION Last administered on 12/27/18at 09:39; Admin Dose 2 TAB; Start 12/17/18 at 21:24 Magnesium Hydroxide (Milk Of Mag) 30 ml HS PRN PO .CONSTIPATION Last administered on 12/18/18at 12:37; Admin Dose 30 ML; Start 12/17/18 at 21:24 Bisacodyl (Dulcolax Supp) 10 mg DAILY PRN [place] .CONSTIPATION; Start 12/17/18 at 21:24 Sodium Biphosphate/ Sodium Phosphate (Fleet Enema) 133 ml DAILY PRN [place] .CONSTIPATION; Start 12/17/18 at 21:24 Naloxone HCl (Narcan) 0.2 mg Q2M PRN IV .RESP RATE; Start 12/17/18 at 21:24 IV Flush (NS 3 ml) 3 ml per protocol IV ; Start 12/17/18 at 21:24 EZETIMIBE (Zetia) 10 mg DAILY PO Last administered on 12/27/18at 09:36; Admin Dose 10 MG; Start 12/17/18 at 21:24 Gabapentin (Neurontin) 300 mg QHS PO Last administered on 12/26/18 20:22; Admin Dose 300 MG; Start 12/17/18 at 23:00 Aspirin (Halfprin) 81 mg BID PO Last administered on 12/27/18 09:36; Admin Dose 81 MG; Start 12/17/18 at 23:00 Ferrous Sulfate (Ferrous Sulfate (Ec)) 325 mg BID PO Last administered on 12/27/18 09:36; Admin Dose 325 MG; Start 12/17/18 at 23:00 Diphenhydramine HCl (Benadryl) 25 mg Q4 PRN PO ITCHING Last administered on 12/19/18 02:13; Admin Dose 25 MG; Start 12/18/18 at 12:30 Lactulose (Enulose) 20 gm DAILY PRN PO CONSTIPATION Last administered on 12/25/18 21:49; Admin Dose 20 GM; Start 12/19/18 at 11:00 Acetaminophen/ Hydrocodone Bitart ([place] (5/325)) 2 tab Q4H PRN PO SEVERE PAIN LEVEL 7-10 Last administered on 12/27/18 07:41; Admin Dose 2 TAB; Start 12/22/18 at 10:30 Acetaminophen/ Hydrocodone Bitart ([place] (5/325)) 1 tab Q4H PRN PO MODERATE PAIN LEVEL 4-6 Last administered on 12/23/18 20:19; Admin Dose 1 TAB; Start 12/22/18 at 10:30 Acetaminophen/ Butalbital/ Caffeine (Fioricet) 2 tab Q6H PRN PO HEADACHE Last administered on 12/27/18 00:54; Admin Dose 2 TAB; Start 12/22/18 at 14:00 Trazodone HCl (Desyrel) 50 mg HS PRN PO INSOMNIA; Start 12/22/18 at 14:00 Lidocaine (Lidoderm) 1 patch DAILY PRN TD PAIN Last administered on 12/26/18 08:36; Admin Dose 1 PATCH; Start 12/24/18 at 12:00 Assessment/Plan Additional Assessment/Plan Rehab- Left hip fracture in patient status post left total hip arthroplasty and ORIF of periprosthetic fracture. Continue rehab activities Acute pain syndrome-continue norco Hyperlipidemia. EMANUEL HERNANDEZ MD Dec 27, 2018 10:26
[2018-12-27 14:27] VITALS: BP 105/56; PULSE 66; RESP 18
--- NOTE | 2018-12-27 14:32 | CONS ---
Assessment/Plan Assessment/Plan Hospital Course (Demo Recall) Hyperlipidemia -continue zetia Headache -continue Floricet PRN Postoperative anemia -H/H stable -continue iron sulfate s/p left hip replacement -continue PT and pain management per surgical team Consultation Date/Type/Reason Admit Date/Time Dec 17, 2018 at 18:49 Initial Consult Date Requesting Provider: UNIQUE LUIS MD Date/Time of Note DATE: 12/27/18 TIME: 14:28 24 HR Interval Summary Free Text/Dictation Patient seen and examined at bedside with family. She is pending PT this morning. She states that pain is relatively well controlled but gets worse during PT sessions. Exam/Review of Systems Exam Vitals Vital Signs Date Temp Pulse Resp B/P (MAP) Pulse Ox O2 O2 Flow FiO2 Time Delivery Rate 12/27/18 98.6 72 18 101/53 94 Room Air 10:01 (69) Intake and Output 12/26/18 12/26/18 12/27/18 1515:00 23:00 07:00 IntakeIntake Total 500 ml 200 ml BalanceBalance 500 ml 200 ml Exam General: Comfortable in appearance, not in acute distress. Skin appropriate for ethnicity Eye: Extraocular movements are intact, Normal conjunctiva. HENT: Normocephalic, atraumatic. Respiratory: Respirations are non-labored, Breath sounds are equal, Symmetrical chest wall expansion. Cardiovascular: S1, S2. No murmur. No LE edema Gastrointestinal: Soft, Non-tender, Non-distended, Normal bowel sounds. Integumentary: Warm to touch. Neurologic: Alert, Oriented. Cognition and Speech: Speech clear and coherent, Functional cognition intact. Psychiatric: Cooperative, Appropriate mood & affect. Results Result Diagram: 12/26/1862412/26/18624 Medications Medication Current Medications Ondansetron HCl (Zofran Inj) 4 mg Q4H PRN IV NAUSEA/VOMITING; Start 12/17/18 at 21:24 Pantoprazole (Protonix Tab) 40 mg DAILY@06 PO Last administered on 12/27/18at 06 :38; Admin Dose 40 MG; Start 12/17/18 at 21:24 Simethicone (Mylicon) 80 mg TID PRN PO .GAS Last administered on 12/21/18at 20:13; Admin Dose 80 MG; Start 12/17/18 at 21:24 Senna/Docusate Sodium (Senokot-S) 2 tab BID PRN PO .CONSTIPATION Last administered on 12/27/18 09:39; Admin Dose 2 TAB; Start 12/17/18 at 21:24 Magnesium Hydroxide (Milk Of Mag) 30 ml HS PRN PO .CONSTIPATION Last administered on 12/18/18 12:37; Admin Dose 30 ML; Start 12/17/18 at 21:24 Bisacodyl (Dulcolax Supp) 10 mg DAILY PRN [place] .CONSTIPATION; Start 12/17/18 at 21:24 Sodium Biphosphate/ Sodium Phosphate (Fleet Enema) 133 ml DAILY PRN [place] .CONSTIPATION; Start 12/17/18 at 21:24 Naloxone HCl (Narcan) 0.2 mg Q2M PRN IV .RESP RATE; Start 12/17/18 at 21:24 IV Flush (NS 3 ml) 3 ml per protocol IV ; Start 12/17/18 at 21:24 EZETIMIBE (Zetia) 10 mg DAILY PO Last administered on 12/27/18 09:36; Admin Dose 10 MG; Start 12/17/18 at 21:24 Gabapentin (Neurontin) 300 mg QHS PO Last administered on 12/26/18 20:22; Admin Dose 300 MG; Start 12/17/18 at 23:00 Aspirin (Halfprin) 81 mg BID PO Last administered on 12/27/18 09:36; Admin Dose 81 MG; Start 12/17/18 at 23:00 Ferrous Sulfate (Ferrous Sulfate (Ec)) 325 mg BID PO Last administered on 12/27/18 09:36; Admin Dose 325 MG; Start 12/17/18 at 23:00 Diphenhydramine HCl (Benadryl) 25 mg Q4 PRN PO ITCHING Last administered on 12/19/18 02:13; Admin Dose 25 MG; Start 12/18/18 at 12:30 Lactulose (Enulose) 20 gm DAILY PRN PO CONSTIPATION Last administered on 12/25/18 21:49; Admin Dose 20 GM; Start 12/19/18 at 11:00 Acetaminophen/ Hydrocodone Bitart ([place] (5/325)) 2 tab Q4H PRN PO SEVERE PAIN LEVEL 7-10 Last administered on 4/20/19at 07:41; Admin Dose 2 TAB; Start 12/22/18 at 10:30 Acetaminophen/ Hydrocodone Bitart ([place] (5/325)) 1 tab Q4H PRN PO MODERATE P AIN LEVEL 4-6 Last administered on 12/23/18at 20:19; Admin Dose 1 TAB; Start 12/22/18 at 10:30 Acetaminophen/ Butalbital/ Caffeine (Fioricet) 2 tab Q6H PRN PO HEADACHE Last administered on 12/27/18at 00:54; Admin Dose 2 TAB; Start 12/22/18 at 14:00 Trazodone HCl (Desyrel) 50 mg HS PRN PO INSOMNIA; Start 12/22/18 at 14:00 Lidocaine (Lidoderm) 1 patch DAILY PRN TD PAIN Last administered on 12/26/18at 08:36; Admin Dose 1 PATCH; Start 12/24/18 at 12:00 JENIFER KAMINSKI MD Dec 27, 2018 14:32
[2018-12-27] MEDS: GABAPENTIN 300 MG CAP PO SCH (20:19)
[2018-12-27 20:30] VITALS: BP 112/56; PULSE 73; RESP 17
[2018-12-28 05:00] VITALS: BP 141/62; PULSE 63; RESP 18
[2018-12-28] MEDS: ACET/BUTAL/CAFF TAB PO PRN (06:09)
[2018-12-28] MEDS: PANTOPRAZOLE (EC) 40 MG TAB PO SCH (06:09)
[2018-12-28 08:00] VITALS: BP 109/56; PULSE 78; RESP 18
[2018-12-28] MEDS: HYDROCODONE/APAP (5/325) TAB PO PRN ×3 (08:09→21:11)
[2018-12-28] MEDS: FERROUS SULFATE (EC) 325 MG TAB PO SCH ×2 (08:13→21:10)
[2018-12-28] MEDS: ASPIRIN (EC) 81 MG TAB PO SCH ×2 (08:13→21:10)
[2018-12-28] MEDS: EZETIMIBE 10 MG TAB PO SCH (08:13)
--- NOTE | 2018-12-28 15:11 | CONS ---
Assessment/Plan Assessment/Plan Hospital Course (Demo Recall) Hyperlipidemia -continue zetia Headache -continue Floricet PRN Anemia -continue iron sulfate s/p left hip replacement -continue PT and pain management per surgical team Consultation Date/Type/Reason Admit Date/Time Dec 17, 2018 at 18:49 Initial Consult Date Requesting Provider: UNIQUE LUIS MD Date/Time of Note DATE: 12/28/18 TIME: 15:09 24 HR Interval Summary Free Text/Dictation Patient seen and examined at bedside. She is doing well with PT, had bowel movement this morning but it took her almost 2 hours. Exam/Review of Systems Exam Vitals Vital Signs Date Temp Pulse Resp B/P (MAP) Pulse Ox O2 O2 Flow FiO2 Time Delivery Rate 12/28/18 97.8 78 18 109/56 98 Room Air 08:00 (73) Intake and Output 12/27/18 12/27/18 12/28/18 1515:00 23:00 07:00 IntakeIntake Total 900 ml 150 ml OutputOutput Total 300 ml BalanceBalance 900 ml -150 ml Exam General: Comfortable in appearance, not in acute distress. Skin appropriate for ethnicity Eye: Extraocular movements are intact, Normal conjunctiva. HENT: Normocephalic, atraumatic. Respiratory: Respirations are non-labored, Breath sounds are equal, Symmetrical chest wall expansion. Cardiovascular: S1, S2. No murmur. No LE edema Gastrointestinal: Soft, Non-tender, Non-distended, Normal bowel sounds. Integumentary: Warm to touch. Neurologic: Alert, Oriented. Cognition and Speech: Speech clear and coherent, Functional cognition intact. Psychiatric: Cooperative, Appropriate mood & affect. Results Result Diagram: 12/26/1862412/26/18624 Medications Medication Current Medications Ondansetron HCl (Zofran Inj) 4 mg Q4H PRN IV NAUSEA/VOMITING; Start 12/17/18 at 21:24 Pantoprazole (Protonix Tab) 40 mg DAILY@06 PO Last administered on 12/28/18at 06:09; Admin Dose 40 MG; Start 12/17/18 at 21:24 Simethicone (Mylicon) 80 mg TID PRN PO .GAS Last administered on 12/21/18at 20:13; Admin Dose 80 MG; Start 12/17/18 at 21:24 Senna/Docusate Sodium (Senokot-S) 2 tab BID PRN PO .CONSTIPATION Last administered on 12/27/18 20:23; Admin Dose 2 TAB; Start 12/17/18 at 21:24 Magnesium Hydroxide (Milk Of Mag) 30 ml HS PRN PO .CONSTIPATION Last administered on 12/18/18 12:37; Admin Dose 30 ML; Start 12/17/18 at 21:24 Bisacodyl (Dulcolax Supp) 10 mg DAILY PRN [place] .CONSTIPATION; Start 12/17/18 at 21:24 Sodium Biphosphate/ Sodium Phosphate (Fleet Enema) 133 ml DAILY PRN OR .CONSTIPATION; Start 12/17/18 at 21:24 Naloxone HCl (Narcan) 0.2 mg Q2M PRN IV .RESP RATE; Start 12/17/18 at 21:24 IV Flush (NS 3 ml) 3 ml per protocol IV ; Start 12/17/18 at 21:24 EZETIMIBE (Zetia) 10 mg DAILY PO Last administered on 12/28/18 08:13; Admin Dose 10 MG; Start 12/17/18 at 21:24 Gabapentin (Neurontin) 300 mg QHS PO Last administered on 12/27/18 20:19; Admin Dose 300 MG; Start 12/17/18 at 23:00 Aspirin (Halfprin) 81 mg BID PO Last administered on 12/28/18 08:13; Admin Dose 81 MG; Start 12/17/18 at 23:00 Ferrous Sulfate (Ferrous Sulfate (Ec)) 325 mg BID PO Last administered on 12/28/18 08:13; Admin Dose 325 MG; Start 12/17/18 at 23:00 Diphenhydramine HCl (Benadryl) 25 mg Q4 PRN PO ITCHING Last administered on 12/19/18 02:13; Admin Dose 25 MG; Start 12/18/18 at 12:30 Lactulose (Enulose) 20 gm DAILY PRN PO CONSTIPATION Last administered on 12/25/18 21:49; Admin Dose 20 GM; Start 12/19/18 at 11:00 Acetaminophen/ Hydrocodone Bitart ([place] (5/325)) 2 tab Q4H PRN PO SEVERE PAIN LEVEL 7-10 Last administered on 12/28/18 14:53; Admin Dose 2 TAB; Start 12/22/18 at 10:30 Acetaminophen/ Hydrocodone Bitart ([place] (5/325)) 1 tab Q4H PRN PO MODERATE PAIN LEVEL 4-6 Last administered on 12/23/18at 20:19; Admin Dose 1 TAB; Start 12/22/18 at 10:30 Acetaminophen/ Butalbital/ Caffeine (Fioricet) 2 tab Q6H PRN PO HEADACHE Last administered on 12/28/18at 06:09; Admin Dose 2 TAB; Start 12/22/18 at 14:00 Trazodone HCl (Desyrel) 50 mg HS PRN PO INSOMNIA; Start 12/22/18 at 14:00 Lidocaine (Lidoderm) 1 patch DAILY PRN TD PAIN Last administered on 12/26/18at 08:36; Admin Dose 1 PATCH; Start 12/24/18 at 12:00 JENIFER KAMINSKI MD Dec 28, 2018 15:11
[2018-12-28] MEDS: GABAPENTIN 300 MG CAP PO SCH (21:10)
[2018-12-28 21:19] VITALS: BP 110/58; PULSE 77; RESP 18
[2018-12-29 02:00] VITALS: BP 123/63; PULSE 75; RESP 18
[2018-12-29] MEDS: HYDROCODONE/APAP (5/325) TAB PO PRN ×4 (04:59→20:33)
[2018-12-29] MEDS: PANTOPRAZOLE (EC) 40 MG TAB PO SCH (05:00)
[2018-12-29] MEDS: ACET/BUTAL/CAFF TAB PO PRN (05:12)
[2018-12-29 07:50] VITALS: BP 106/56; PULSE 64
[2018-12-29] MEDS: ASPIRIN (EC) 81 MG TAB PO SCH ×2 (08:14→20:33)
[2018-12-29] MEDS: EZETIMIBE 10 MG TAB PO SCH (08:14)
[2018-12-29] MEDS: FERROUS SULFATE (EC) 325 MG TAB PO SCH ×2 (08:14→20:33)
--- NOTE | 2018-12-29 13:57 | PN ---
Date/Time of Note Date/Time of Note DATE: 12/29/18 TIME: 13:55 Objective Vital Signs Date Temp Pulse Resp B/P (MAP) Pulse Ox O2 O2 Flow FiO2 Time Delivery Rate 12/29/18 97.9 64 106/56 94 Room Air 07:50 (73) 12/29/18 18 02:00 Intake and Output 12/28/18 12/28/18 12/29/18 1515:00 23:00 07:00 IntakeIntake Total 440 ml OutputOutput Total 100 ml BalanceBalance 340 ml Exam INTERDISCIPLINARY TEAM CONFERENCE Attended by PT, OT, ST, Truck Driver Flatbed, Social Work, Rehabilitation Nursing, Cleaning Crew Member and Scrap CarrierReo Asset Manager Exam: Pulm- cta Abd-soft BOWEL- Cont BLADDER-Cont SKIN- intact OT- DRESSING- sba BATHING-sba TOILETING-sba PT- BED MOBILITY-cga TRANSFERS-cga AMBULATION-sba 55 feet A/P- Interdisciplinary team conference held today. Please see interdisciplinary sheet. Working toward d.c. on 12/29 with post discharge follow up of physical therapy, occupational therapy. Results/Medications Result Diagram: 12/26/1862412/26/18624 Medications Current Medications Ondansetron HCl (Zofran Inj) 4 mg Q4H PRN IV NAUSEA/VOMITING; Start 12/17/18 at 21:24 Pantoprazole (Protonix Tab) 40 mg DAILY@06 PO Last administered on 12/29/18at 05:00; Admin Dose 40 MG; Start 12/17/18 at 21:24 Simethicone (Mylicon) 80 mg TID PRN PO .GAS Last administered on 12/21/18at 20:13; Admin Dose 80 MG; Start 12/17/18 at 21:24 Senna/Docusate Sodium (Senokot-S) 2 tab BID PRN PO .CONSTIPATION Last administered on 12/27/18at 20:23; Admin Dose 2 TAB; Start 12/17/18 at 21:24 Magnesium Hydroxide (Milk Of Mag) 30 ml HS PRN PO .CONSTIPATION Last administered on 12/18/18at 12:37; Admin Dose 30 ML; Start 12/17/18 at 21:24 Bisacodyl (Dulcolax Supp) 10 mg DAILY PRN [place] .CONSTIPATION; Start 12/17/18 at 21:24 Sodium Biphosphate/ Sodium Phosphate (Fleet Enema) 133 ml DAILY PRN [place] .CONSTIPATION; Start 12/17/18 at 21:24 Naloxone HCl (Narcan) 0.2 mg Q2M PRN IV .RESP RATE; Start 12/17/18 at 21:24 IV Flush (NS 3 ml) 3 ml per protocol IV ; Start 12/17/18 at 21:24 EZETIMIBE (Zetia) 10 mg DAILY PO Last administered on 12/29/18 08:14; Admin Dose 10 MG; Start 12/17/18 at 21:24 Gabapentin (Neurontin) 300 mg QHS PO Last administered on 12/28/18 21:10; Admin Dose 300 MG; Start 12/17/18 at 23:00 Aspirin (Halfprin) 81 mg BID PO Last administered on 12/29/18 08:14; Admin Dose 81 MG; Start 12/17/18 at 23:00 Ferrous Sulfate (Ferrous Sulfate (Ec)) 325 mg BID PO Last administered on 12/29/18 08:14; Admin Dose 325 MG; Start 12/17/18 at 23:00 Diphenhydramine HCl (Benadryl) 25 mg Q4 PRN PO ITCHING Last administered on 12/19/18 02:13; Admin Dose 25 MG; Start 12/18/18 at 12:30 Lactulose (Enulose) 20 gm DAILY PRN PO CONSTIPATION Last administered on 12/25/18 21:49; Admin Dose 20 GM; Start 12/19/18 at 11:00 Acetaminophen/ Hydrocodone Bitart ([place] (5/325)) 2 tab Q4H PRN PO SEVERE PAIN LEVEL 7-10 Last administered on 12/29/18 11:44; Admin Dose 2 TAB; Start 12/22/18 at 10:30 Acetaminophen/ Hydrocodone Bitart ([place] (5/325)) 1 tab Q4H PRN PO MODERATE PAIN LEVEL 4-6 Last administered on 12/23/18 20:19; Admin Dose 1 TAB; Start 12/22/18 at 10:30 Acetaminophen/ Butalbital/ Caffeine (Fioricet) 2 tab Q6H PRN PO HEADACHE Last administered on 12/29/18 05:12; Admin Dose 2 TAB; Start 12/22/18 at 14:00 Trazodone HCl (Desyrel) 50 mg HS PRN PO INSOMNIA; Start 12/22/18 at 14:00 Lidocaine (Lidoderm) 1 patch DAILY PRN TD PAIN Last administered on 12/26/18at 08:36; Admin Dose 1 PATCH; Start 12/24/18 at 12:00 EMANUEL HERNANDEZ MD Dec 29, 2018 13:57
[2018-12-29 14:30] VITALS: BP 106/56; PULSE 65; RESP 18
[2018-12-29] MEDS: LIDOCAINE 5% PATCH TD PRN (17:40)
--- NOTE | 2018-12-29 18:33 | CONS ---
Assessment/Plan Assessment/Plan Problems: (1) Pure hypercholesterolemia Status: Chronic Comment: Cont. zetia daily now and after d/c (2) Postoperative anemia due to acute blood loss Status: Acute Comment: Cont. FeSO4 now and after d/c (3) Insomnia due to medical condition Status: Acute Comment: Expect pt. to improve after d/c home (4) Intraoperative surgical complication involving musculoskeletal system associated with musculoskeletal procedure Status: Acute Comment: Cont. PT after d/c. Expect this fracture to heal. (5) Primary osteoarthritis of left hip Status: Resolved Comment: Doing well (6) Aftercare following left hip joint replacement surgery Status: Acute Comment: Completed rehab. Ready for d/c home. Consultation Date/Type/Reason Admit Date/Time Dec 17, 2018 at 18:49 Initial Consult Date 12/15/2018 Type of Consult Medicine Reason for Consultation Medical management Requesting Provider: UNIQUE LUIS MD Date/Time of Note DATE: 12/29/18 TIME: 18:31 24 HR Interval Summary Constitutional: no complaints, improved Detailed Summary Respiratory: no complaints Cardiovascular: no complaints Gastrointestinal: no complaints Genitourinary: no complaints Musculoskeletal: bone/joint pain (ambulating w/ walker, doing well, pain controlled) Neurologic: no complaints Exam/Review of Systems Exam Vitals VS - Last 72 Hours, by Label Date Temp Pulse Resp B/P (MAP) Pulse Ox O2 O2 Flow FiO2 Time Delivery Rate 12/29/18 97.4 65 18 106/56 92 Room Air 14:30 (73) 12/29/18 97.9 64 106/56 94 Room Air 07:50 (73) 12/29/18 98.4 75 18 123/63 95 Room Air 02:00 (83) 12/28/18 98.2 77 18 110/58 93 Room Air 21:19 (75) 12/28/18 97.8 78 18 109/56 98 Room Air 08:00 (73) 12/28/18 97.7 63 18 141/62 97 Room Air 05:00 (88) 12/27/18 97.7 73 17 112/56 94 Room Air 20:30 (74) 12/27/18 98.0 66 18 105/56 96 Room Air 14:27 (72) 12/27/18 98.6 72 18 101/53 94 Room Air 10:01 (69) 12/27/18 98.5 80 16 119/48 98 Room Air 02:00 (71) 12/26/18 98.3 83 18 119/57 98 Room Air 20:26 (77) Vital Signs Date Temp Pulse Resp B/P (MAP) Pulse Ox O2 O2 Flow FiO2 Time Delivery Rate 12/29/18 97.4 65 18 106/56 92 Room Air 14:30 (73) Intake and Output 12/28/18 12/28/18 12/29/18 1515:00 23:00 07:00 IntakeIntake Total 440 ml OutputOutput Total 100 ml BalanceBalance 340 ml Constitutional: alert, oriented, well developed Psych: no complaints, nl mood/affect Respiratory: clear to auscultation, normal air movement Cardiovascular: regular rate and rhythm, nl pulses; No edema, No murmurs/extra sounds, No rub Gastrointestinal: soft, nl liver, spleen, non-tender, bowel sounds; No mass, No rebound or guarding Musculoskeletal: nl extremities to inspection Extremities: normal pulses; No cyanosis, No clubbing, No edema 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: FUNDER 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, nl mental status, nl speech, nl strength Results Result Diagram: 12/26/1862412/26/18624 Medications Medication Current Medications Ondansetron HCl (Zofran Inj) 4 mg Q4H PRN IV NAUSEA/VOMITING; Start 12/17/18 at 21:24 Pantoprazole (Protonix Tab) 40 mg DAILY@06 PO Last administered on 12/29/18at 05:00; Admin Dose 40 MG; Start 12/17/18 at 21:24 Simethicone (Mylicon) 80 mg TID PRN PO .GAS Last administered on 12/21/18at 20:13; Admin Dose 80 MG; Start 12/17/18 at 21:24 Senna/Docusate Sodium (Senokot-S) 2 tab BID PRN PO .CONSTIPATION Last administered on 12/27/18at 20:23; Admin Dose 2 TAB; Start 12/17/18 at 21:24 Magnesium Hydroxide (Milk Of Mag) 30 ml HS PRN PO .CONSTIPATION Last administered on 12/18/18at 12:37; Admin Dose 30 ML; Start 12/17/18 at 21:24 Bisacodyl (Dulcolax Supp) 10 mg DAILY PRN OR .CONSTIPATION; Start 12/17/18 at 21:24 Sodium Biphosphate/ Sodium Phosphate (Fleet Enema) 133 ml DAILY PRN OR .CONSTIPATION; Start 12/17/18 at 21:24 Naloxone HCl (Narcan) 0.2 mg Q2M PRN IV .RESP RATE; Start 12/17/18 at 21:24 IV Flush (NS 3 ml) 3 ml per protocol IV ; Start 12/17/18 at 21:24 EZETIMIBE (Zetia) 10 mg DAILY PO Last administered on 12/29/18 08:14; Admin Dose 10 MG; Start 12/17/18 at 21:24 Gabapentin (Neurontin) 300 mg QHS PO Last administered on 12/28/18 21:10; Admin Dose 300 MG; Start 12/17/18 at 23:00 Aspirin (Halfprin) 81 mg BID PO Last administered on 12/29/18 08:14; Admin Dose 81 MG; Start 12/17/18 at 23:00 Ferrous Sulfate (Ferrous Sulfate (Ec)) 325 mg BID PO Last administered on 12/29/18 08:14; Admin Dose 325 MG; Start 12/17/18 at 23:00 Diphenhydramine HCl (Benadryl) 25 mg Q4 PRN PO ITCHING Last administered on 12/19/18 02:13; Admin Dose 25 MG; Start 12/18/18 at 12:30 Lactulose (Enulose) 20 gm DAILY PRN PO CONSTIPATION Last administered on 12/25/18 21:49; Admin Dose 20 GM; Start 12/19/18 at 11:00 Acetaminophen/ Hydrocodone Bitart ([place] (5/325)) 2 tab Q4H PRN PO SEVERE PAIN LEVEL 7-10 Last administered on 12/29/18 11:44; Admin Dose 2 TAB; Start at 10:30 Acetaminophen/ Hydrocodone Bitart ([place] (5/325)) 1 tab Q4H PRN PO MODERATE PAIN LEVEL 4-6 Last administered on 12/29/18 15:58; Admin Dose 1 TAB; Start 12/22/18 at 10:30 Acetaminophen/ Butalbital/ Caffeine (Fioricet) 2 tab Q6H PRN PO HEADACHE Last administered on 12/29/18 05:12; Admin Dose 2 TAB; Start 12/22/18 at 14:00 Trazodone HCl (Desyrel) 50 mg HS PRN PO INSOMNIA; Start 12/22/18 at 14:00 Lidocaine (Lidoderm) 1 patch DAILY PRN TD PAIN Last administered on 12/29/18at 17:40; Admin Dose 1 PATCH; Start 12/24/18 at 12:00 CASH GONZÁLES MD Dec 29, 2018 18:33
[2018-12-29 20:00] VITALS: BP 106/61; PULSE 71; RESP 18
[2018-12-29] MEDS: GABAPENTIN 300 MG CAP PO SCH (20:33)
[2018-12-30 02:00] VITALS: BP 110/61; PULSE 58; RESP 18
[2018-12-30] MEDS: PANTOPRAZOLE (EC) 40 MG TAB PO SCH (05:41)
[2018-12-30] MEDS: HYDROCODONE/APAP (5/325) TAB PO PRN ×2 (05:42→11:45)
[2018-12-30] MEDS: ACET/BUTAL/CAFF TAB PO PRN (05:45)
[2018-12-30] MEDS: LACTULOSE 30ML CUP PO PRN (05:53)
[2018-12-30 07:00] VITALS: BP 137/67; PULSE 64; RESP 18
[2018-12-30] MEDS: ASPIRIN (EC) 81 MG TAB PO SCH (08:14)
[2018-12-30] MEDS: FERROUS SULFATE (EC) 325 MG TAB PO SCH (08:14)
[2018-12-30] MEDS: EZETIMIBE 10 MG TAB PO SCH (08:14)
[2018-12-30] MEDS: LIDOCAINE 5% PATCH TD PRN (08:18)
[2018-12-30] MEDS: SENNA/DOCUSATE NA (8.6MG/50MG) TAB PO PRN (11:52)
--- NOTE | 2018-12-30 12:47 | DS ---
Date/Time of Note Date/Time of Note DATE: 12/30/18 TIME: 12:45 Discharge Summary Admission/Discharge Info Admit Date/Time Dec 17, 2018 at 18:49 Discharge Date/Time Discharge Diagnosis 1. Left hip fracture in patient status post left total hip arthroplasty and ORIF of periprosthetic fracture. 2. Acute pain syndrome, Improved 3. Hyperlipidemia. 4. Improvements in self-care and mobility. Patient Condition: Good Hospital Course The patient was admitted for comprehensive interdisciplinary rehabilitation and made steady functional gains from a Mod/max level to a s/SBA level for self care tasks and mobility including ambulating over 50 feet with the use of a FWW. Patient is being discharged home with the recommendation of home health PT, OT and RN follow up. The DC meds are per the medication reconciliation sheet. The discharge equipment recommendations include: FWW, BSC, shower chair. The patient will follow up with PMD upon DC. Home Meds Active Scripts Oxycodone Hcl* (IR) (Roxicodone*) 5 Mg Tab, 5-10 MG PO Q4H PRN for .PAIN, #90 TAB Prov:UNIQUE LUIS MD 12/17/18 Gabapentin* (Gabapentin*) 300 Mg Capsule, 300 MG PO QHS for 30 Days, #30 CAP Prov:UNIQUE LUIS MD 12/17/18 Aspirin Delayed Release (Aspirin Delayed Release) 81 Mg Tablet.dr, 81 MG PO BID for 42 Days, #84 Prov:UNIQUE LUIS MD 12/17/18 Reported Medications Simvastatin* (Zocor*) 10 Mg Tablet, 10 MG PO DAILY, #30 TAB 12/16/18 Primary Care Provider Not On Staff Doctor EMANUEL HERNANDEZ MD Dec 30, 2018 12:47
== END 2018-12-30 12:40 | disposition home health service (06) | DRG 560 ==
LOC: VRC 18:49
PROVIDERS: ADMIT Physical Medicine & Rehabilitation; ATTEND Internal Medicine
PROC: F07Z5ZZ Bed Mobility Treatment (ICD-10-PCS; principal; 2018-12-17)
PROC: F08Z2ZZ Grooming/Personal Hygiene Treatment (ICD-10-PCS; 2018-12-17)
DX: Z47.1 Aftercare following joint replacement surgery (principal); D62 Acute posthemorrhagic anemia; G89.18 Other acute postprocedural pain; E78.5 Hyperlipidemia, unspecified; Z96.642 Presence of left artificial hip joint; E78.00 Pure hypercholesterolemia, unspecified; R73.9 Hyperglycemia, unspecified; K59.00 Constipation, unspecified; G47.00 Insomnia, unspecified; Z79.82 Long term (current) use of aspirin; R51 Headache; F06.31 Mood disorder due to known physiological condition with depressive features
CPT/HCPCS: 72170; 73510; 80053; 81003; 82962; 85014; 85018; 85025; 87081; 87086; 97110; 97112; 97116; 97163; 97165; 97530; 97535; 97542; J1200; J7120

== ENCOUNTER → 2019-01-26 | Outpatient (CLI) | payer MEDICARE, BC ==
[~2019-01-26] MED LIST changes: +ASPI-1044 PO; +GABA300C16 PO; +OXYC-481 PO
--- NOTE | 2019-01-26 15:04 | CONS ---
Consult Date/Type/Reason Admit Date/Time Initial Consult Date Date/Time of Note DATE: 01/26/19 TIME: 15:00 Subjective DOS: 12/16/2018 Procedure: Left KULDEEP, iatrogenic calcar fracture 6 weeks s/p left KULDEEP with intraoperative iatrogenic calcar fracture who returns today for follow up. The patient is doing well overall. Pain is none. The patient has remained touchdown weightbearing as instructed and is using a walker. She is looking forward to increasing her activity and weightbearing status. Narcotic Pain medication: None Gait Aids: Walker Pain better than before surgery: Yes Pleased with outcome. Objective Vitals Weight: 130 pounds Height: 5 feet 2 inches Temperature: 90.6 Heart Rate: 85 Blood Pressure: 137/67 Respiratory Rate: 12 Exam General: Alert, oriented x3. No Acute Distress. Heart: Regular rate and rhythm. Lungs: No respiratory distress. No accessory muscle use. MUSCULOSKELETAL: Left lower Extremity: Incision well-healed. No skin breakdown, no surrounding erythema. Sensation intact to light touch in a sural, saphenous, deep peroneal, superficial peroneal, medial and lateral plantar nerve distribution. Motor is intact, patient able to dorsiflex and plantarflex ankle and extend and flex great toe. Dorsalis Pedis pulse +2, Brisk capillary refill. Compartments are soft. Rises from seated position without difficulty. Gait: Using walker. Touchdown weightbearing. Results/Medications Home Meds Active Scripts Oxycodone Hcl* (IR) (Roxicodone*) 5 Mg Tab, 5-10 MG PO Q4H PRN for .PAIN, #90 TAB Prov:UNIQUE LUIS MD 12/17/18 Gabapentin* (Gabapentin*) 300 Mg Capsule, 300 MG PO QHS for 30 Days, #30 CAP Prov:UNIQUE LUIS MD 12/17/18 Aspirin Delayed Release (Aspirin Delayed Release) 81 Mg Tablet.dr, 81 MG PO BID for 42 Days, #84 Prov:UNIQUE LUIS MD 12/17/18 Reported Medications Simvastatin* (Zocor*) 10 Mg Tablet, 10 MG PO DAILY, #30 TAB 12/16/18 Imaging Xrays obtained in clinic today and personally reviewed by myself: AP pelvis and AP/Lat of the left hip demonstrate hip s/p KULDEEP with hip reduced. Components in good position and alignment. 2 cerclage cables around the calcar. No change in position of prosthesis. No subsidence. No signs of wear, osteolysis, loosening, component failure, or fracture. No acute complications. Assessment/Plan Hospital Course (Demo Recall) 73-year-old female 6 weeks status post left total hip arthroplasty with iatrogenic calcar fracture. This was a fairly large fracture, therefore, the patient was made touchdown weightbearing. At this time there is been no changes in x-rays. The hip prosthesis is stable. She will now be progressed to 50% weightbearing. I like to see her back in 2 weeks for repeat x-rays. If those x-rays are without change she can progress with weightbearing as tolerated. After she is fully weightbearing she will likely need outpatient physical therapy for abductor strengthening as her postoperative restrictions likely have resulted in a week or abductors. May discontinue aspirin Antibiotic prophylaxis for dental appointments Continue posterior hip precautions 50% weightbearing Follow-up 2 weeks with new x-rays. UNIQUE LUIS MD January 26, 2019 15:04
--- NOTE | 2019-01-27 10:00 | RADRPT ---
PROCEDURE: XR pelvis and left hip study. CLINICAL INDICATION: Pain TECHNIQUE: AP pelvis and AP and frog lateral views of the left hip were performed. COMPARISON: Left hip study 12/29/2018 FINDINGS: Unremarkable total left hip prosthesis without dislocation or loosening. No acute fractures. No focal bony blastic or lytic lesion. Soft tissues are unremarkable. IMPRESSION: 1. Unremarkable total left hip prosthesis without acute fracture, dislocation, or loosening. RPTAT:AAJJ Physician Vicky Date Time Electronically viewed and signed by Physician Vicky on 01/27/2019 09:59 BM/
== END | disposition home or self-care (01) ==
LOC: HKI 13:19
PROVIDERS: ATTEND Orthopaedic Surgery Adult Reconstructive Orthopaedic Surgery
DX: S92.002D Unspecified fracture of left calcaneus, subsequent encounter for fracture with routine healing (principal); X58.XXXD Exposure to other specified factors, subsequent encounter; Z96.642 Presence of left artificial hip joint
CPT/HCPCS: 73502

== ENCOUNTER → 2019-02-11 | Outpatient (CLI) | payer MEDICARE, BC ==
--- NOTE | 2019-02-11 18:57 | CONS ---
Consult Date/Type/Reason Admit Date/Time Initial Consult Date Date/Time of Note DATE: 02/11/19 TIME: 18:50 Subjective DOS: 12/16/2018 Procedure: Left KULDEEP, iatrogenic calcar fracture 8 weeks s/p left KULDEEP with intraoperative iatrogenic calcar fracture who returns today for follow up. The patient is doing well overall. The patient has remained 50% weightbearing most of the time as instructed and at times slightly more. She continues to use a walker. She is looking forward to increasing her activity and weightbearing status. In the last week or 2 since mobilizing more she has significantly more pain along the lateral aspect of her hip right over the greater trochanter. Denies fevers and chills. Narcotic Pain medication: None Gait Aids: Walker Pain better than before surgery: Yes Pleased with outcome. Objective Exam General: Alert, oriented x3. No Acute Distress. Heart: Regular rate and rhythm. Lungs: No respiratory distress. No accessory muscle use. MUSCULOSKELETAL: Left lower Extremity: Incision well-healed. No skin breakdown, no surrounding erythema. Sensation intact to light touch in a sural, saphenous, deep peroneal, superficial peroneal, medial and lateral plantar nerve distribution. Motor is intact, patient able to dorsiflex and plantarflex ankle and extend and flex great toe. Dorsalis Pedis pulse +2, Brisk capillary refill. Compartments are soft. Tender to palpation over the greater trochanter. Rises from seated position without difficulty. Gait: Using walker. Moderate pace with weightbearing as tolerated. Slightly antalgic. Positive Trendelenburg component. Results/Medications Home Meds Active Scripts Oxycodone Hcl* (IR) (Roxicodone*) 5 Mg Tab, 5-10 MG PO Q4H PRN for .PAIN, #90 TAB Prov:UNIQUE LUIS MD 12/17/18 Gabapentin* (Gabapentin*) 300 Mg Capsule, 300 MG PO QHS for 30 Days, #30 CAP Prov:UNIQUE LUIS MD 12/17/18 Aspirin Delayed Release (Aspirin Delayed Release) 81 Mg Tablet.dr, 81 MG PO BID for 42 Days, #84 Prov:UNIQUE LUIS MD 12/17/18 Reported Medications Simvastatin* (Zocor*) 10 Mg Tablet, 10 MG PO DAILY, #30 TAB 12/16/18 Imaging Xrays obtained in clinic today and personally reviewed by myself: AP pelvis and AP/Lat of the left hip demonstrate hip s/p KULDEEP with hip reduced. Components in good position and alignment. 2 cerclage cables around the calcar. No change in position of prosthesis. No subsidence. No signs of wear, osteolysis, loosening, component failure, or fracture. No acute complications. Assessment/Plan Hospital Course (Demo Recall) 73-year-old female 8 weeks status post left total hip arthroplasty with iatrogenic calcar fracture. This was a fairly large fracture, at last visit the patient was progressed to 50% weightbearing. At this time there is been no changes in x-rays. The hip prosthesis is stable. She will now be progressed to weightbearing as tolerated. She has some fairly significant greater trochanteric bursitis. Antibiotic prophylaxis for dental appointments Continue posterior hip precautions Weight-bear as tolerated Physical therapy for total hip arthroplasty and GT bursitis Meloxicam for NSAID regiment for GT bursitis Follow-up 4 weeks with new x-rays. UNIQUE LUIS MD Feb 11, 2019 18:57
--- NOTE | 2019-02-12 03:11 | RADRPT ---
PROCEDURE: AP pelvis and left hip series CLINICAL INDICATION: Pain TECHNIQUE: AP pelvis and AP and frog lateral views of the left hip were performed. COMPARISON: Left hip study 01/26/2019 FINDINGS: There is a total left hip prosthesis in place without evidence of dislocation or loosening. No acute fractures. Mild degenerate joint disease right hip. No evidence of focal bony blastic or lytic lesion s. Soft tissues are unremarkable. IMPRESSION: 1. Unremarkable left hip prosthesis. 2. Mild degenerate joint disease right hip. RPTAT:AAJJ Physician Vicky Date Time Electronically viewed and signed by Celeste Smart Physician on 02/12/2019 03:11 BM/
== END | disposition home or self-care (01) ==
LOC: HKI 13:29
PROVIDERS: ATTEND Orthopaedic Surgery Adult Reconstructive Orthopaedic Surgery
DX: Z47.1 Aftercare following joint replacement surgery (principal); Z96.652 Presence of left artificial knee joint
CPT/HCPCS: 73502